=== PATIENT | male | born 1975 | race Caucasian/White ===

== ENCOUNTER 2018-05-27 16:23 | Inpatient (IN) ==
[2018-05-27] MEDS ORDERED: 0.9 % Sodium Chloride 250 ML IVC ONE (16:43)
--- NOTE | 2018-05-27 16:43 | Emergency Department Note ---
Disposition Clinical Impression: End stage renal disease Pneumonia Qualifiers: Pneumonia type: due to unspecified organism Laterality: right Lung location: upper lobe of lung Qualified Code(s): J18.1 - Lobar pneumonia, unspecified organism Sepsis Qualifiers: Sepsis type: sepsis due to unspecified organism Qualified Code(s): A41.9 - Sepsis, unspecified organism Disposition: Admitted As Inpatient Condition: Fair General Adult HPI - General Chief complaint: ED General Medical Stated complaint: High Bp Time Seen by Provider: 05/27/18 16:29 Source: patient, EMS Limitations: no limitations - History of Present Illness Pain Scale: 0 - Related Data Home Medications Medication Instructions Recorded Confirmed Amlodipine Besylate 10 mg PO DAILY 05/28/18 05/28/18 CloNIDine Patch [Catapres-Tts] 0.3 patch TD Q72H 05/28/18 05/28/18 Ergocalciferol (VITAMIN D2) 50,000 unit PO QWEEK 05/28/18 05/28/18 [Vitamin D2] Folic Acid 1 mg PO DAILY 05/28/18 05/28/18 Furosemide [Lasix] 40 mg PO BID PRN 05/28/18 05/28/18 Hydralazine HCl 100 mg PO BID 05/28/18 05/28/18 Lisinopril [Zestril] 40 mg PO BID 05/28/18 05/28/18 Lovastatin [Mevacor] 20 mg PO HS 05/28/18 05/28/18 Phenytoin ER [Dilantin ER] 200 mg PO BID 05/28/18 05/28/18 Allergies Allergy/AdvReac Type Severity Reaction Status Date / Time No Known Allergies Allergy Verified 05/28/18 07:44 Past Medical History - Past Medical History Medical history: Reports: dialysis, hyperlipidemia, hypertension, renal disease Psychiatric history: Reports: no psych history - Social History Smoking Status: Never smoker Smokeless Tobacco Status: No Alcohol use: Reports: none Drug use: Reports: none Physical Exam - General Limitations: no limitations General appearance: alert, in no apparent distress Course Vital Signs Temperature 101.8 F H 05/27/18 16:28 Pulse Rate 145 05/27/18 16:28 Respiratory Rate 20 05/27/18 16:28 Blood Pressure 170/86 05/27/18 16:28 O2 Sat by Pulse Oximetry 96 05/27/18 16:28 Temperature 98.1 F 05/29/18 08:01 Pulse Rate 110 05/29/18 10:00 Respiratory Rate 22 05/29/18 10:00 Blood Pressure 101/69 05/29/18 10:00 O2 Sat by Pulse Oximetry 96 05/29/18 10:00 Oxygen Delivery Oxygen Delivery Nasal Cannula Medical Decision Making - Lab Data Result diagrams: 05/29/18 03:34 05/29/18 03:34 Lab Results 05/27/18 05/27/18 05/27/18 Range/Units 18:43 18:43 18:43 WBC 12.0 H (4.3-11.1) K/mcL RBC 3.89 L (4.19-5.50) M/mcL Hgb 12.7 L (12.9-16.9) g/dL Hct 37.9 (37.5-50.1) % MCV 97.4 (83.0-100.0) fL MCH 32.6 (28.0-33.3) pg MCHC 33.5 (31.6-35.5) g/dL RDW 13.3 (11.5-14.5) % Plt Count 86 L (140-400) K/mcL MPV 9.5 (9.4-12.4) fL Immature Plt Fraction 1.8 (1.1-6.1) % Sodium 132 L (136-145) mEq/L Potassium 3.8 (3.5-5.1) mEq/L Chloride 94 L (98-107) mEq/L Carbon Dioxide 15 L (23-29) mEq/L BUN 75 H (6-20) mg/dL Creatinine 8.61 H (0.70-1.30) mg/dL Est GFR ( Amer) 8 L (> 60) Est GFR (Non-Af Amer) 7 L (> 60) BUN/Creatinine Ratio 9 (6-26) Glucose 64 L (70-105) mg/dL Calculated Osmolality 294 (280-300) Lactic Acid 1.5 (0.5-2.2) mmol/L Calcium 7.9 L (8.6-10.3) mg/dL TSH 3.264 (0.340-5.600) mcIU/mL Attestation Statement - Attestation Attestation: I examined this patient and my medical decision-making was reviewed with the Resident Physician. I agree with the documented findings, disposition and treatment plan as described except to the extent set forth below. History presents with fever, tachycardia, shortness of breath. No orthopnea. Had a normal dialysis session on Monday. Has had a cough for about a week. No recent weight loss. On my arrival, found to be in sinus tachycardia with no appreciable murmur. He is to Take without any abnormal breath sounds on my exam. Thyroid is normal. He has a palpable thrill in his left upper extremity dialysis shunt. His abdomen is nontender, no appreciable rash or findings to suggest cellulitis. It is members are somewhat dry. I am obviously not going to give a large fluid bolus 2 and uric dialysis patient with a normal blood pressure, but I will start with a 250 mL bolus for now.
[2018-05-27] MEDS ORDERED: Cefepime HCl 1,000 MG in Water for inj. (sterile) 20 ML 10 ML IVP ONE (17:07)
--- NOTE | 2018-05-27 17:29 | Emergency Department Note ---
Disposition Clinical Impression: End stage renal disease Pneumonia Qualifiers: Pneumonia type: due to unspecified organism Laterality: right Lung location: upper lobe of lung Qualified Code(s): J18.1 - Lobar pneumonia, unspecified organism Sepsis Qualifiers: Sepsis type: sepsis due to unspecified organism Qualified Code(s): A41.9 - Sepsis, unspecified organism Disposition: Admitted As Inpatient Condition: Fair General Adult HPI - General Chief complaint: ED General Medical Stated complaint: High Bp Time Seen by Provider: 05/27/18 16:29 Source: patient, EMS Mode of arrival: EMS Limitations: no limitations Nursing Notes Reviewed: Yes Vital Signs Reviewed: Yes - History of Present Illness HPI Narrative: 42-year-old male with a history of end-stage renal disease, hypertension since for evaluation of elevated blood pressure. Patient also notes cough and shortness of breath for the past week. Noted a fever today. Denies any abdominal pain. No chest pain nausea or vomiting. Patient presents in the care of family. Patient typically gets dialysis Monday and Monday and follows with Dr. Rae. Patient got his dialysis on Monday. Denies any recent travel or no known ill contacts. Patient does not produce any urine. Pain Scale: 0 - Related Data Allergies Allergy/AdvReac Type Severity Reaction Status Date / Time No Known Allergies Allergy Verified 10/03/16 08:20 All systems ED: reviewed and negative except as stated. Constitutional: Reports: fever Cardiovascular: Denies: chest pain Respiratory: Reports: cough, dyspnea Gastrointestinal: Denies: abdominal pain, nausea, vomiting Past Medical History - Past Medical History Source: patient Medical history: Reports: dialysis, hyperlipidemia, hypertension, renal disease Psychiatric history: Reports: no psych history - Social History Smoking Status: Never smoker Smokeless Tobacco Status: No Alcohol use: Reports: none Drug use: Reports: none Physical Exam - General Limitations: no limitations General appearance: alert, in no apparent distress - Head Head exam: atraumatic, normal inspection - Eye Eye exam: Present: normal appearance, PERRL, EOMI, conjunctival injection. Absent: miosis, mydriasis - ENT ENT exam: normal exam - Neck Neck exam: Present: normal inspection - Chest Chest inspection: Present: normal inspection, symmetric chest wall rise - Respiratory Respiratory exam: Present: other (scattered coarse breath sounds). Absent: respiratory distress - Cardiovascular Cardiovascular exam: Present: normal rhythm, tachycardia. Absent: systolic murmur - Abdominal Exam Abdominal exam: Present: soft, Non-Tender - Expanded Upper Extremity Exam Forearm/Wrist exam: Present: other (Left upper extremity palpable fistula.) Vascular exam: Normal: capillary refill - Expanded Lower Extremity Exam Neurovascular/Tendon exam: Present: normal capillary refill - Neurological Exam Neurological exam: Present: alert, oriented X3, CN II-XII intact - Skin Skin exam: Present: warm, dry, intact, normal color Course Course Narrative: Patient presents with abnormal vitals tachycardia with a temperature. Patient concerns for infection. Will get blood cultures chest x-ray IV fluid gradual titration given his history of end-stage renal disease disposition likely admission. - Consultations Consultation #1: Consulted with Nephrology for scheduled HD. Time: 19:12 Vital Signs Temperature 101.8 F H 05/27/18 16:28 Pulse Rate 145 05/27/18 16:28 Respiratory Rate 20 05/27/18 16:28 Blood Pressure 170/86 05/27/18 16:28 O2 Sat by Pulse Oximetry 96 05/27/18 16:28 Temperature 102.3 F H 05/27/18 20:36 Pulse Rate 138 05/27/18 20:08 Respiratory Rate 18 05/27/18 20:08 Blood Pressure 129/80 05/27/18 20:08 O2 Sat by Pulse Oximetry 100 05/27/18 20:08 Oxygen Delivery Oxygen Delivery Nasal Cannula Medical Decision Making - [facility] Narrative Medical decision making narrative: Patient presented for concerns of cough and shortness of breath. Patient also noted have a fever. Patient is tachycardic and febrile meeting Sirs and likely sepsis criteria. Patient had early antibiotics given. Given the patient's end- stage renal disease the 30 mL/kg fluid bolus was not given and the patient was titrated to effect. Patient did receive 250 mL boluses 2. Patient's heart rate and tachycardia improved during the ED course. Patient was started on broad-spectrum antibiotics including bank, cefepime and azithromycin. Patient's chest x-ray is concerning for a right upper lobe infiltrate. Patient is an uric and cannot produce any urine. Urine Legionella and strep were not ordered in the ED. Discussed the case with nephrology who will follow the patient on the inpatient service for HD. Agreed with titratable fluids. - Lab Data Lab results reviewed: Yes I reviewed the patient's lab results. Result diagrams: 05/27/18 18:43 05/27/18 18:43 Lab Results 05/27/18 05/27/18 05/27/18 Range/Units 18:43 18:43 18:43 WBC 12.0 H (4.3-11.1) K/mcL RBC 3.89 L (4.19-5.50) M/mcL Hgb 12.7 L (12.9-16.9) g/dL Hct 37.9 (37.5-50.1) % MCV 97.4 (83.0-100.0) fL MCH 32.6 (28.0-33.3) pg MCHC 33.5 (31.6-35.5) g/dL RDW 13.3 (11.5-14.5) % Plt Count 86 L (140-400) K/mcL MPV 9.5 (9.4-12.4) fL Immature Plt Fraction 1.8 (1.1-6.1) % Sodium 132 L (136-145) mEq/L Potassium 3.8 (3.5-5.1) mEq/L Chloride 94 L (98-107) mEq/L Carbon Dioxide 15 L (23-29) mEq/L BUN 75 H (6-20) mg/dL Creatinine 8.61 H (0.70-1.30) mg/dL Est GFR ( Amer) 8 L (> 60) Est GFR (Non-Af Amer) 7 L (> 60) BUN/Creatinine Ratio 9 (6-26) Glucose 64 L (70-105) mg/dL Calculated Osmolality 294 (280-300) Lactic Acid 1.5 (0.5-2.2) mmol/L Calcium 7.9 L (8.6-10.3) mg/dL - Radiology Data Radiology results reviewed: Yes I reviewed the patient's radiology results. Chest X-Ray 05/27/18 16:40 IMPRESSION: Right upper lobe pneumonia. D/ / 05/27/2018 17:58:12 Leeann Silva MD / linda Interpreting Provider: Leeann Silva MD S.B.ASoniaRSonia - S.Jose Ramon Situation: Demographics Background: Presenting Complaint Assessment: Vital Signs, Course and respsone to treatment, Patient/Family Expectation Recommendation: Barrier(s) to disposition, Recommendation based on pending studies, treatments, or consults Amaury Report Given to: Dr. Shelby Rebolledo Repor Time: 19:18
[2018-05-27] MEDS ORDERED: Azithromycin 500 MG in D5% in Water 250 ML IVPB ONE (18:16)
[2018-05-27 19:01] LABS: Hematocrit 37.9 % (37.5-50.1); Hemoglobin 12.7 g/dL (12.9-16.9); Immature Platelets 1.8 % (1.1-6.1); Mean Corpuscular HGB Conc 33.5 g/dL (31.6-35.5); Mean Corpuscular Hemoglobin 32.6 pg (28.0-33.3); Mean Corpuscular Volume 97.4 fL (83.0-100.0); Mean Platelet Volume 9.5 fL (9.4-12.4); Red Blood Count 3.89 M/mcL (4.19-5.50); Red Cell Distribution Width 13.3 % (11.5-14.5)
[2018-05-27 19:19] LABS: Calcium 7.9 mg/dL (8.6-10.3); Potassium 3.8 mEq/L (3.5-5.1)
[2018-05-27] MEDS ORDERED: Naloxone 0.4 MG/ML INJ IVP PRN (19:37)
[2018-05-27] MEDS ORDERED: 0.9 % Sodium Chloride 1,000 ML IVC SCH (19:45)
--- NOTE | 2018-05-27 19:45 | Internal Med History&Physical ---
Date of Encounter: 05/27/18 Time of Encounter: 19:44 Internal Medicine - H&P: HPI Chief complaint: Cough History of present illness: Mr. Herrera is a 42 year old male Past Med Surg Social Fam HX - Past Medical History Medical history: dialysis, hyperlipidemia, hypertension, renal disease Psychiatric history: no psych history - Past Surgical History Additional surgical history: kidney transplant-1994. dialysis [facility] [place] - Social History Smoking Status: Never smoker Smokeless Tobacco Status: No Alcohol use: none Drug use: none Internal Medicine - H&P: Meds Allergy/AdvReac Type Severity Reaction Status Date / Time No Known Allergies Allergy Verified 10/03/16 08:20 All Systems PM: A 10-system review of systems was performed and is negative for pertinent findings except as documented above in the HPI. - Constitutional Constitutional: no chills, no fever(s), no night sweats - EENT Eyes: no change in vision, no discharge, no pain, no photophobia Ears: no ear discharge, no ear pain, no tinnitus Nose, mouth and throat: no dysphagia, no nasal discharge, no neck pain, no sore throat - Cardiovascular Cardiovascular ROS IM: no chest pain, no diaphoresis, no dyspnea, no light headedness, no palpitations, no syncope - Respiratory Respiratory: no cough, no dyspnea, no wheezing, no excessive phlegm production - Gastrointestinal Gastrointestinal: no abdominal pain, no diarrhea, no hematemesis, no h ematochezia, no melena, no nausea, no vomiting - Musculoskeletal Musculoskeletal ROS IM: no numbness, no tingling - Integumentary Integumentary IM: no rash, no unusual bruising - Neurological Neurological ROS: no confusion, no convulsions, no focal weakness, no numbness, no tingling, no tremor(s) - Hematologic/Lymphatic Hematologic/Lymphatic: no easy bruising - Constitutional Vitals: Temp Pulse Resp BP Pulse Ox 101.8 F H 146 22 149/83 95 05/27/18 16:28 05/27/18 17:36 05/27/18 17:36 05/27/18 17:36 05/27/18 17:36 Internal Med - H&P Results - Labs CBC & Chem 7: 05/27/18 18:43 05/27/18 18:43 Labs: Short CBC 11/11/18 Range/Units 18:43 WBC 12.0 H (4.3-11.1) K/mcL Hgb 12.7 L (12.9-16.9) g/dL Hct 37.9 (37.5-50.1) % Plt Count 86 L (140-400) K/mcL [facility] 05/27/18 18:43 Sodium 132 L Potassium 3.8 Chloride 94 L Carbon Dioxide 15 L BUN 75 H Creatinine 8.61 H Glucose 64 L Calcium 7.9 L - Impressions ITS Impressions Chest X-Ray 05/27/18 16:40 IMPRESSION: Right upper lobe pneumonia. D/ / 05/27/2018 17:58:12 Leeann Silva MD / linda Interpreting Provider: Leeann Silva MD - Assessment and plan (1) Cough Current Visit: Yes Status: Acute (2) HCAP (healthcare-associated pneumonia) Current Visit: Yes Status: Acute (3) End stage renal disease Current Visit: Yes Status: Acute - Time Spent With Patient Total time spent is greater than 50% in coordination of care (as documented) at patient's floor/unit and/or counseling patient:
[2018-05-27] MEDS ORDERED: Ondansetron 4 MG/2 ML VIAL IVP ONE (19:49)
[2018-05-27] MEDS ORDERED: Ondansetron 4 MG/2 ML VIAL ONE (19:59)
[2018-05-27] MEDS: 0.9 % Sodium Chloride 250 ML IVC ONE ×2 (20:11→20:22)
[2018-05-27] MEDS ORDERED: Ibuprofen 800 MG TABLET PO STA (20:38)
[2018-05-27 21:21] LABS: Thyroid Stimulating Hormone 3.264 mcIU/mL (0.340-5.600)
[2018-05-28] MEDS: Acetaminophen 325 MG TABLET PO PRN ×2 (00:17→05:59)
[2018-05-28] MEDS: Ondansetron 4 MG/2 ML VIAL IVP PRN ×2 (00:18→06:00)
--- NOTE | 2018-05-28 01:54 | Internal Med History&Physical ---
Date of Encounter: 05/28/18 Time of Encounter: 23:00 Internal Medicine - H&P: HPI Chief complaint: cough History of present illness: Patient was seen and examined on 05/27/2018 Mr. Herrera is a 42 year old male with a past medical history of end-stage renal disease on hemodialysis and hypertension who presented to the ED due to a 1 week history of productive cough and shortness of breath. Patient reports symptoms of an ongoing for the past week. He noted a subjective fever earlier today. Reports productive cough. On arrival was found to be in sinus tachycardia with a heart rate in the 140s with an elevated white blood cell count of 12. Given the patient's end-stage renal disease the 30 mL/kg fluid bolus was not given. He did receive 250 mL boluses 2. Patient's heart rate and tachycardia improved during the ED course. Patient was started on broad-spectrum antibiotics including bank, cefepime and azithromycin. Patient's chest x-ray is concerning for a right upper lobe infiltrate. A CT scan was followed up to further evaluate x-ray findings which did confirm a right upper lobe consolidation concerning for pneumonia. Patient is anuric and thus cannot produce any urine. Urine Legionella and strep were not ordered in the ED. ED provider discussed case with nephrology who will follow the patient on the inpatient service for HD. Past Med Surg Social Fam HX - Past Medical History Medical history: dialysis, hyperlipidemia, hypertension, renal disease Psychiatric history: no psych history - Past Surgical History Additional surgical history: kidney transplant-1994. dialysis port [facility] - Social History Smoking Status: Never smoker Smokeless Tobacco Status: No Alcohol use: none Drug use: none - Family History Mother History Unknown: Yes Father History Unknown: Yes Internal Medicine - H&P: Meds Allergy/AdvReac Type Severity Reaction Status Date / Time No Known Allergies Allergy Verified 10/03/16 08:20 All Systems PM: A 10-system review of systems was performed and is negative for pertinent findings except as documented above in the HPI. - Constitutional Constitutional: no chills, no fever(s), no night sweats - EENT Eyes: no change in vision, no discharge, no pain, no photophobia Ears: no ear discharge, no ear pain, no tinnitus Nose, mouth and throat: no dysphagia, no nasal discharge, no neck pain, no sore throat - Cardiovascular Cardiovascular ROS IM: no chest pain, no diaphoresis, no dyspnea, no lightheadedness, no palpitations, no syncope - Respiratory Respiratory: no cough, no dyspnea, no wheezing, no excessive phlegm production - Gastrointestinal Gastrointestinal: no abdominal pain, no diarrhea, no hematemesis, no hematochezia, no melena, no nausea, no vomiting - Musculoskeletal Musculoskeletal ROS IM: no numbness, no tingling - Integumentary Integumentary IM: no rash, no unusual bruising - Neurological Neurological ROS: no confusion, no convulsions, no focal weakness, no numbness, no tingling, no tremor(s) - Hematologic/Lymphatic Hematologic/Lymphatic: no easy bruising - Constitutional Vitals: Temp Pulse Resp BP Pulse Ox 98.3 F 123 18 102/62 97 05/27/18 23:37 05/27/18 23:37 05/27/18 23:37 05/27/18 23:37 05/27/18 21:52 Exam: General: Alert and oriented 3; lying in bed in no acute distress Skin:Normal color, no rash, no lesions. HEENT:EOM, pupils equal, round and reactive. Cardiovascular:Normal S1 & S2, tachycardia; no rubs, murmurs or gallops. No JVD. Pulse regular. Lungs: Diffuse rhonchi appreciated in the right posterior thorax. Abdomen:Soft, non-tender, no rigidity. Extremities:No deformity, no edema or tenderness, no joint swelling or clubbing. Neurological:Normal cognition and motor skills. Pulses:Carotid and radial pulses normal +2. Rest of the physical exam is non contributory Internal Med - H&P Results - Labs CBC & Chem 7: 05/28/18 04:38 05/28/18 04:38 Labs: Short CBC 05/27/18 Range/Units 18:43 WBC 12.0 H (4.3-11.1) K/mcL Hgb 12.7 L (12.9-16.9) g/dL Hct 37.9 (37.5-50.1) % Plt Count 86 L (140-400) K/mcL BMP 05/27/18 18:43 Sodium 132 L Potassium 3.8 Chloride 94 L Carbon Dioxide 15 L BUN 75 H Creatinine 8.61 H Glucose 64 L Calcium 7.9 L - Impressions ITS Impressions Chest X-Ray 05/27/18 16:40 IMPRESSION: Right upper lobe pneumonia. D/ / 05/27/2018 17:58:12 Leeann Silva MD / linda Interpreting Provider: Leeann Silva MD Chest CT 05/27/18 19:39 IMPRESSION: Right upper lobe consolidation concerning for pneumonia. Additional airspace disease is noted in the posterior aspect of the right lower lobe to a lesser degree. A small pleural effusion on the right is also noted. D/ / Bam Alfaro / Bam Alfaro Interpreting Provider: Bam Alfaro - Assessment and plan (1) Cough Current Visit: Yes Status: Acute Assessment and plan: 1 week history of productive cough associated with fever and shortness of saurav ath. Found to have a elevated white blood cell count and right lower lobe consolidation on imaging consistent with pneumonia. We will treat for healthcare associated pneumonia. (2) HCAP (healthcare-associated pneumonia) Current Visit: Yes Status: Acute Assessment and plan: Fever, cough, leukocytosis and findings of a Right upper lobe consolidation in a patient with end-stage renal disease on hemodialysis. Patient started on broad- spectrum antibiotics for coverage for healthcare associated pneumonia. We will follow-up blood cultures. (3) Sepsis Current Visit: Yes Status: Acute Assessment and plan: Patient presents with fever, elevated white blood cell count and tachycardia in the 140s in the setting of right upper lobe consolidation consistent with sepsis. Remains hemodynamically stable. Lactic acid on admission was 1.5. Given the patient's end-stage renal disease the 30 mL/kg fluid bolus was not given. He did receive 250 mL boluses 2. Heart rate has mildly improved now in the 120s. Continue with antibiotics fluid support Follow-up blood cultures. Qualifiers: Sepsis type: sepsis due to unspecified organism Qualified Code(s): A41.9 - Sepsis, unspecified organism (4) End stage renal disease Current Visit: Yes Status: Acute Assessment and plan: End-stage renal disease on dialysis Monday. Nephrology has been consulted and will see patient tomorrow to aid in dialysis session. - Time Spent With Patient Total time spent is greater than 50% in coordination of care (as documented) at patient's floor/unit and/or counseling patient:
[2018-05-28 05:05] LABS: Hemoglobin 11.6 g/dL (12.9-16.9); Red Cell Distribution Width 13.5 % (11.5-14.5)
[2018-05-28 05:07] LABS: Hematocrit 34.9 % (37.5-50.1); Immature Platelets 2.6 % (1.1-6.1); Mean Corpuscular HGB Conc 33.2 g/dL (31.6-35.5); Mean Corpuscular Hemoglobin 32.6 pg (28.0-33.3); Mean Platelet Volume 9.6 fL (9.4-12.4); Red Blood Count 3.56 M/mcL (4.19-5.50)
[2018-05-28 05:13] LABS: INR 1.7; Prothrombin Time 18.9 Seconds (9.4-12.1)
[2018-05-28 05:15] LABS: Activated Partial Thrombo Time 44.6 Seconds (26.0-36.0)
[2018-05-28 05:20] LABS: Platelet Count 79 K/mcL (140-400)
[2018-05-28 05:35] LABS: Albumin 3.4 g/dL (3.5-5.7); Albumin/Globulin Ratio 1.2 (1.1-2.2); Bilirubin,Total 0.6 mg/dL (0.3-1.0); Calcium 7.4 mg/dL (8.6-10.3); Globulin 2.8 g/dL (2.4-3.5); Magnesium 1.8 mg/dL (1.6-2.6); Phosphorous 2.5 mg/dL (2.7-4.5); Potassium 3.8 mEq/L (3.5-5.1); Total Protein 6.2 g/dL (6.4-8.9)
[2018-05-28] MEDS ORDERED: Dextrose Gel 15 GM/37.5 ML TUBE PO PRN (05:37)
[2018-05-28] MEDS ORDERED: D5% in Water 1,000 ML IVC PRN ×2 (05:37→06:56)
[2018-05-28] MEDS: *HR* Dextrose 50 % in Water (Syg) 50 ML SYRINGE IVP PRN ×3 (05:48→22:09)
[2018-05-28 05:53] LABS: Eosinophils # 0.2 K/mcL (0.0-0.6); Lymphocytes # 1.1 K/mcL (0.6-4.6); Monocytes # 0.9 K/mcL (0.0-1.3); Neutrophils # 8.1 K/mcL (1.6-8.9)
[2018-05-28] MEDS: Dextrose Gel 15 GM/37.5 ML TUBE PO PRN ×2 (06:12→10:00)
[2018-05-28] MEDS: Piperacillin/Tazobactam 3.375 GM in 0.9 % Sodium Chloride Mini Bag 100 ML IVPB SCH ×2 (06:12→17:49)
[2018-05-28] MEDS ORDERED: 0.9 % Sodium Chloride 250 ML IVC PRN (07:57)
[2018-05-28] MEDS ORDERED: 0.9 % Sodium Chloride 1,000 ML PRIME SCH (08:00)
[2018-05-28 08:12] LABS: Hepatitis B Surface Antigen Nonreactive (Nonreactive)
[2018-05-28 08:21] LABS: Hepatitis B Surface Antibody 13.16 mIU/mL
--- NOTE | 2018-05-28 09:01 | Nephrology Consult Note ---
Addendum entered and electronically signed by Alf Floyd DO 05/28/18 20:39: I have personally performed a face to face evaluation on this patient. I have reviewed and agree with the care plan. History and Exam by me shows: 42 y/o WM with a pmh of small body habitus and ESRD on HD MWF (follows with Dr. Rae) who presented with fevers and PNA and hypoglycemia. His last HD was Monday, and I've arranged for dialysis today. I reviewed his labs, vitals, imaging, progress notes, med list as part of his complex MDM and E/M. Dialysis note: he was also seen while on HD with adequate BFR. He appeared hemodynamically stable but later he developed N/V. Original Note: Date of Encounter: 05/28/18 Time of Encounter: 08:54 Assessment and Plan (1) ESRD (end stage renal disease) on dialysis Current Visit: Yes Status: Acute Current regimen is MWF at [facility]. Last tx was Monday. HD ordered for today. Strict I/O Avoid nephrotoxins and renal dose. (2) Hypoglycemia Current Visit: Yes Status: Acute (3) Cough Current Visit: Yes Status: Acute (4) Pneumonia Current Visit: Yes Status: Acute Qualifiers: Pneumonia type: due to unspecified organism Laterality: right Lung location: upper lobe of lung Qualified Code(s): J18.1 - Lobar pneumonia, unspecified organism (5) Hypoglycemia Current Visit: Yes Status: Acute Blood glucose on serum lab was 38, 25 mls of dextrose given. Target glucose 140-180. History of Present Illness - Reason for Consult Consult date: 05/28/18 end stage renal disease Requesting physician: Louis Ryan - Chief Complaint HTN - History of Present Illness Mr. Herrera is a 42 year old male who presented to ED with elevated BP, shortness of breath, and overall not feeling well. PMH: hyperlipidemia, hypertension, ESRD. Current regimen is MWF at [facility]. Last tx was Monday without complication. He states the shortness of breath started about 7 days ago, denies chills but does admit to a subjective fever, he did not check it at home. He denies sputum production or chest pain. He lives at home with his sister. Denies tobacco, Etoh, or illicit drug use. Denies FH of HD. HD ordered for today, will continue to follow along to manage hemodialylsis. He typically runs 180 mins and target weight is 42.5 kg. Past Med Surg Social Fam HX - Past Medical History Medical history: dialysis, hyperlipidemia, hypertension, renal disease Psychiatric history: no psych history - Past Surgical History Additional surgical history: kidney transplant-1994. dialysis [facility] [place] - Social History Smoking Status: Never smoker Smokeless Tobacco Status: No Alcohol use: none Drug use: none - Family History Mother History Unknown: Yes Father History Unknown: Yes Medications and Allergies Amlodipine Besylate 10 mg PO DAILY 05/28/18 [History] CloNIDine Patch [Catapres-Tts] 0.3 patch TD Q72H 05/28/18 [History] Ergocalciferol (VITAMIN D2) [Vitamin D2] 50,000 unit PO QWEEK 05/28/18 [History] Folic Acid 1 mg PO DAILY 05/28/18 [History] Furosemide [Lasix] 40 mg PO BID PRN 05/28/18 [History] Hydralazine HCl 100 mg PO BID 05/28/18 [History] Lisinopril [Zestril] 40 mg PO BID 05/28/18 [History] Lovastatin [Mevacor] 20 mg PO HS 05/28/18 [History] Phenytoin ER [Dilantin ER] 200 mg PO BID 05/28/18 [History] Allergy/AdvReac Type Severity Reaction Status Date / Time No Known Allergies Allergy Verified 05/28/18 07:44 Review of Systems All Systems review (narrative): The remainder of the systems are negative. Constitutional: fatigue, fever(s), no chills Cardiovascular: dyspnea, dyspnea on exertion, no chest pain, no edema Respiratory: no hemoptysis Gastrointestinal: no change in bowel habits, no diarrhea, no nausea, no vomiting Exam - Vital Signs Vital signs: Initial Vital Signs Temp Pulse Resp BP Pulse Ox 101.8 F H 145 20 170/86 96 05/27/18 16:28 05/27/18 16:28 05/27/18 16:28 05/27/18 16:28 05/27/18 16:28 Vital Signs - Last 8 Hours Temp Pulse Resp BP Pulse Ox 05/28/18 06:55 97.9 F 117 18 98/57 98 05/28/18 04:04 98.2 F 114 16 100/58 98 Intake and Output 05/27/18 05/28/18 05/28/18 23:59 07:59 15:59 Other: Stool Size Moderate Stool Consistency soft Stool Color Brown # Bowel Movements 1 # Bowel Movement Diapers 1 Weight 45.359 kg 44.4 kg Blood Glucose* 113 93 Patient Weight 05/28/18 23:59 Weight 44.4 kg - General Appearance General appearance: well-developed, well-nourished EENT: ATNC, hearing intact, vision intact Neck: supple Respiratory: clear Cardiology: no edema, normal S1, normal S2 - Dialysis Access Dialysis Vascular Access: Arteriovenous Fistula thrill: Yes bruit: Yes Gastrointestinal: normoactive bowel sounds, no tenderness, no guarding Integumentary: no rash, warm and dry Neurologic: alert and oriented x3 Psychiatric: mood/affect appropriate, cooperative Results - Lab Results 05/28/18 04:38 05/28/18 04:38 Most recent lab results Calcium 7.4 mg/dL (8.6-10.3) L 05/28/18 04:38 Phosphorus 2.5 mg/dL (2.7-4.5) L 05/28/18 04:38 Magnesium 1.8 mg/dL (1.6-2.6) 05/28/18 04:38 Consult Discharge Plan - Plan Referrals: Lupe Mcdonnell, SUEDING MACHINE TENDER [Primary Care Provider] -
[2018-05-28] MEDS ORDERED: *HR* OxyCODONE Immed Rel 5 MG TABLET PO PRN (09:55)
[2018-05-28] MEDS: *HR* Promethazine 25 MG/ML VIAL IVP PRN ×2 (11:10→16:40)
--- NOTE | 2018-05-28 16:30 | Internal Med Progress Note ---
Hospitalist Progress Note - Encounter Date of Encounter: 05/28/18 Time of Encounter: 16:29 - Subjective Interval History: Pt vomiting during HD so waited for him to be cleaned up and to return to his room. Sister at bedside states pt appears confused. Sister states last time he had similar symptoms, he was "in a coma for 10 days." Pt denies fever or chills, positive nausea. Denies abdominal pain. Denies CP or SOB HE was alert and oriented times 2-3. - Exam Vitals: Temp Pulse Resp BP Pulse Ox 100.5 F H 130 20 92/61 98 05/28/18 15:00 05/28/18 15:00 05/28/18 15:00 05/28/18 15:00 05/28/18 15:00 Exam: Exam: General: Alert and oriented 3; lying in bed in no acute distress HEENT:EOM, pupils equal, round and reactive. Cardiovascular:Normal S1 & S2, tachycardia; no rubs, murmurs or gallops. No JVD. Pulse regular. Lungs: Diffuse rhonchi appreciated in the right posterior thorax. Abdomen:Soft, non-tender, no rigidity. Extremities:No deformity, no edema or tenderness, no joint swelling or clubbing. Neurological:Normal cognition and motor skills. Pulses:Carotid and radial pulses normal +2. Skin:Normal color, no rash, no lesions. - Assessment and Plan (1) Sepsis Current Visit: Yes Status: Acute Assessment and Plan: Patient presents with fever, elevated white blood cell count and tachycardia in the 140s in the setting of right upper lobe consolidation consistent with sepsis. Remains hemodynamically stable. Lactic acid on admission was 1.5. Given the patient's end-stage renal disease the 30 mL/kg fluid bolus was not given. He did receive 250 mL boluses 2 and about another liter of NS. Heart rate still elevated. Will obtain EKG 12 lead. Continue with Zithromax, Zosyn, and Vancomycin fluid support per nephrology recommendation. Following-up blood cultures, legionella, strep, and rep panel results. Pt will be transfered to 2N or ICU over flow for close monitoring. (2) HCAP (healthcare-associated pneumonia) Current Visit: Yes Status: Acute Assessment and Plan: Fever, cough, leukocytosis and findings of a Right upper lobe consolidation in a patient with end-stage renal disease on hemodialysis. Patient started on broad-spectrum antibiotics for coverage for healthcare associated pneumonia. Blood culture, Legionella, strep urine and resp panel results pending (3) End stage renal disease Current Visit: Yes Status: Acute Assessment and Plan: End-stage renal disease on dialysis Monday. Nephrology consulting and pt is s/p HD today (4) Hypoglycemia Current Visit: Yes Status: Acute Assessment and Plan: Etiology unclear. Monitoring glucose Q 30 minutes and replacing with prn dextrose and glucagon for now. (5) Encephalopathy acute Current Visit: Yes Status: Acute Assessment and Plan: ? metabolic encephalopathy. Likely due to acute illness. Will continue to monitor closely on higher acuity floor. (6) Cough Current Visit: Yes Status: Acute Assessment and Plan: 1 week history of productive cough associated with fever and shortness of breath. Found to have a elevated white blood cell count and right lower lobe consolidation on imaging consistent with pneumonia. Treating for healthcare associated pneumonia. DVT Prophylaxis: SCD - Summary of Assessment and Plan Summary of Assessment and Plan: History of present illness: Dr. Ryan Patient was seen and examined on 05/27/2018 Mr. Herrera is a 42 year old male with a past medical history of end-stage renal disease on hemodialysis and hypertension who presented to the ED due to a 1 week history of productive cough and shortness of breath. Patient reports symptoms of an ongoing for the past week. He noted a subjective fever earlier today. Reports productive cough. On arrival was found to be in sinus tachycardia with a heart rate in the 140s with an elevated white blood cell count of 12. Given the patient's end-stage renal disease the 30 mL/kg fluid bolus was not given. He did receive 250 mL boluses 2. Patient's heart rate and tachycardia improved during the ED course. Patient was started on broad-spectrum antibiotics including bank, cefepime and azithromycin. Patient's chest x-ray is concerning for a right upper lobe infiltrate. A CT scan was followed up to further evaluate x-ray findings which did confirm a right upper lobe consolidation concerning for pneumonia. Patient is anuric and thus cannot produce any urine. Urine Legionella and strep were not ordered in the ED. ED provider discussed case with nephrology who will follow the patient on the inpatient service for HD. - Time Spent with Patient Total time spent is greater than 50% in coordination of care (as documented) at patient's floor/unit and/or counseling patient: less than 15 minutes Plan of Care Discussed with: patient Internal Medicine: Result - Labs CBC & Chem 7: 05/28/18 04:38 05/28/18 04:38 Labs: Short CBC 05/27/18 05/28/18 Range/Units 18:43 04:38 WBC 12.0 H 11.0 (4.3-11.1) K/mcL Hgb 12.7 L 11.6 L (12.9-16.9) g/dL Hct 37.9 34.9 L (37.5-50.1) % Plt Count 86 L 79 L (140-400) K/mcL Neutrophils # 8.1 (1.6-8.9) K/mcL BMP 05/27/18 05/28/18 18:43 04:38 Sodium 132 L 133 L Potassium 3.8 3.8 Chloride 94 L 97 L Carbon Dioxide 15 L 16 L BUN 75 H 77 H Creatinine 8.61 H 8.73 H Glucose 64 L 38 L* Calcium 7.9 L 7.4 L Liver Function 05/28/18 Range/Units 04:38 Total Bilirubin 0.6 (0.3-1.0) mg/dL AST 46 H (13-39) Units/L ALT 24 (7-52) Units/L Alkaline Phosphatase 150 H (34-104) Units/L Albumin 3.4 L (3.5-5.7) g/dL - ABG Interpretation ABG results: PT/INR, D-dimer PT 18.9 Seconds (9.4-12.1) H 05/28/18 04:38 - Impressions Impressions Chest X-Ray 05/27/18 16:40 IMPRESSION: Right upper lobe pneumonia. D/ / 05/27/2018 17:58:12 Leeann Silva MD / linda Interpreting Provider: Leeann Silva MD Chest CT 05/27/18 19:39 IMPRESSION: Right upper lobe consolidation concerning for pneumonia. Additional airspace disease is noted in the posterior aspect of the right lower lobe to a lesser degree. A small pleural effusion on the right is also noted. D/ / Bam Alfaro / Bam Alfaro Interpreting Provider: Bam Alfaro Consult Discharge Plan - Plan Referrals: Lupe Mcdonnell, CONSTRUCTION ANALYST [Primary Care Provider] - (1) Sepsis Qualifiers: Sepsis type: sepsis due to unspecified organism Qualified Code(s): A41.9 - Sepsis, unspecified organism
[2018-05-28] MEDS ORDERED: Azithromycin 500 MG in D5% in Water 250 ML IVPB SCH (18:00)
[2018-05-28 18:03] LABS: ABG Base Excess 8 mEq/L (-2 to 3); ABG HCO3 31 mEq/L (21-27); ABG Oxygen Saturation 98 % (95-98); ABG PCO2 37 mmHg (35-45); ABG PH 7.53 pH Units (7.32-7.45); ABG PO2 97 mmHg (85-104); ABG TCO2 32 mEq/L (20-26)
[2018-05-28] MEDS ORDERED: *HR* LORazepam 2 MG/ML VIAL IVP ONE (20:22)
[2018-05-28 23:18] LABS: Adenovirus F 40/41 PCR Not detected (Not detect); Astrovirus PCR Not detected (Not detect); C.difficile Toxin A/B by PCR Not detected (Not detect); Campylobacter by PCR Not detected (Not detect); Cryptosporidium by PCR Not detected (Not detect); Cyclospora cayetanensis PCR Not detected (Not detect); E. coli O157 by PCR Not detected (Not detect); Entamoeba histolytica PCR Not detected (Not detect); Enteroaggregative E.coli(EAEC) Not detected (Not detect); Enteropathogenic E.coli(EPEC) Not detected (Not detect); Enterotoxigenic E.coli (ETEC) Not detected (Not detect); Giardia lamblia PCR Not detected (Not detect); Norovirus GI/GII PCR Not detected (Not detect); Plesiomonas shigelloides PCR Not detected (Not detect); Rotavirus A PCR Not detected (Not detect); Salmonella PCR Not detected (Not detect); Sapovirus PCR Not detected (Not detect); Shig/EnteroinvasiveE coli EIEC Not detected (Not detect); Shigalike tox-prod E coli STEC Not detected (Not detect); Vibrio PCR Not detected (Not detect); Vibrio cholerae PCR Not detected (Not detect); Yersinia enterocolitica PCR Not detected (Not detect)
[2018-05-29] MEDS: *HR* Dextrose 50 % in Water (Syg) 50 ML SYRINGE IVP PRN (02:21)
[2018-05-29 03:54] LABS: Mean Corpuscular HGB Conc 33.5 g/dL (31.6-35.5)
[2018-05-29 03:56] LABS: Hematocrit 38.2 % (37.5-50.1); Hemoglobin 12.8 g/dL (12.9-16.9); Immature Platelets 3.3 % (1.1-6.1); Mean Corpuscular Hemoglobin 32.7 pg (28.0-33.3); Mean Corpuscular Volume 97.7 fL (83.0-100.0); Mean Platelet Volume 10.1 fL (9.4-12.4); Red Blood Count 3.91 M/mcL (4.19-5.50); Red Cell Distribution Width 13.7 % (11.5-14.5)
[2018-05-29 04:08] LABS: Platelet Count 81 K/mcL (140-400)
[2018-05-29 04:12] LABS: Calcium 7.6 mg/dL (8.6-10.3); Potassium 3.5 mEq/L (3.5-5.1)
[2018-05-29 04:28] LABS: Lymphocytes # 0.5 K/mcL (0.6-4.6); Neutrophils # 22.8 K/mcL (1.6-8.9); Platelet Estimate Decreased (Normal)
[2018-05-29] MEDS: Piperacillin/Tazobactam 3.375 GM in 0.9 % Sodium Chloride Mini Bag 100 ML IVPB SCH ×2 (04:55→17:51)
[2018-05-29 04:56] LABS: Adenovirus Not Detected (Not Detect); Bordetella Pertussis Not Detected (Not Detect); Chlamydophila pneumoniae Not Detected (Not Detect); Coronavirus 229E Not Detected (Not Detect); Coronavirus HKU1 Not Detected (Not Detect); Coronavirus NL63 Not Detected (Not Detect); Coronavirus OC43 Not Detected (Not Detect); Human Metapneumovirus Not Detected (Not Detect); Human Rhinovirus/Enterovirus DETECTED (Not Detect); Influenza A Subtype 2009 H1 Not Detected (Not Detect); Influenza A Untypeable Not Detected (Not Detect); Influenza B Not Detected (Not Detect); Mycoplasma pneumoniae Not Detected (Not Detect); Parainfluenza Virus 1 Not Detected (Not Detect); Parainfluenza Virus 2 Not Detected (Not Detect); Parainfluenza Virus 3 Not Detected (Not Detect); Parainfluenza Virus 4 Not Detected (Not Detect); Respiratory Syncytial Virus Not Detected (Not Detect)
[2018-05-29] MEDS ORDERED: *HR* Dextrose 50 % in Water (Syg) 50 ML SYRINGE IVP ONE (05:02)
[2018-05-29] MEDS: *HR* Promethazine 25 MG/ML VIAL IVP PRN (08:10)
[2018-05-29] MEDS ORDERED: Azithromycin 250 MG TABLET PO SCH (09:00)
--- NOTE | 2018-05-29 09:37 | Nephrology Progress Note ---
Addendum entered and electronically signed by Alf Floyd DO 05/29/18 19:39: I have personally performed a face to face evaluation on this patient. I have reviewed and agree with the care plan. History and Exam by me shows: Pt was s/e earlier today at about noon and I updated his brother and sister in law. Next HD planned for tomorrow. Reasonable to add a concentrated Dextrose IVF if needed. Updated VEHICLE TECHNICIAN. Thank you. Original Note: Date of Encounter: 05/29/18 Time of Encounter: 09:34 - Assessment and Plan (1) ESRD (end stage renal disease) on dialysis Current Visit: Yes Status: Acute Current regimen is MWF at [facility]. HD completed yesterday. Strict I/O Avoid nephrotoxins and renal dose. (2) Cough Current Visit: Yes Status: Acute Per primary. (3) Pneumonia Current Visit: Yes Status: Acute Per primary. Qualifiers: Pneumonia type: due to unspecified organism Laterality: right Lung location: upper lobe of lung Qualified Code(s): J18.1 - Lobar pneumonia, unspecified organism (4) Hypoglycemia Current Visit: Yes Status: Acute Appears resolved. Target glucose 140-180. Subjective Principal diagnosis: elevated BP Interval history: Pt seen and evaluated, is doing well. Did have large amount of green emesis this morning. Reports he is feeling "okay". Denies CP or shortness of breath. Objective - Vital Signs Vital signs: Vital Signs Temp Pulse Resp BP Pulse Ox 05/29/18 09:00 115 22 100/61 96 05/29/18 08:01 98.1 F 05/29/18 08:00 115 24 120/94 96 05/29/18 07:00 98.1 F 118 20 113/75 96 05/29/18 06:00 115 21 103/63 96 05/29/18 05:00 120 23 113/76 98 05/29/18 04:10 98.2 F 05/29/18 04:00 116 20 114/69 95 05/29/18 03:00 120 23 104/73 95 05/29/18 02:00 120 24 110/60 96 05/29/18 01:00 123 18 96/63 98 05/29/18 00:00 98.7 F 122 23 101/64 97 05/28/18 23:30 100.7 F H 05/28/18 23:00 125 23 89/62 98 05/28/18 22:00 124 21 104/58 99 05/28/18 21:00 126 25 109/63 98 05/28/18 20:13 98.6 F 05/28/18 20:00 125 21 95/49 98 05/28/18 19:00 126 22 102/62 100 05/28/18 18:00 98.4 F 131 20 101/66 98 05/28/18 17:00 134 20 93/68 98 05/28/18 16:00 138 20 104/71 98 05/28/18 15:00 100.5 F H 130 20 92/61 98 05/28/18 12:25 98.9 F 20 95/62 05/28/18 12:05 91/62 05/28/18 11:50 108/70 05/28/18 11:35 89/62 05/28/18 11:20 109/55 05/28/18 11:05 106/74 05/28/18 10:50 98/69 05/28/18 10:35 111/75 05/28/18 10:20 99/59 05/28/18 10:05 101/62 05/28/18 09:50 93/59 05/28/18 09:35 99/63 Intake and Output 05/28/18 05/29/18 05/29/18 23:59 07:59 15:59 Intake Total 350 / 350 0 / 0 100 / 100 Balance 350 / 350 0 / 0 100 / 100 Intake: IV Fluids 350 / 350 100 / 100 Zithromax 500 mg In Dextrose 5% 250 / 250 250 ML @ 250 mls/hr IVPB Q24H [facility] Rx#:[id number] Zosyn 3.375 GM In 0.9 % Sodium 100 / 100 100 / 100 Chloride (Mini-Bag +) 100 ML @ 25 mls/hr IVPB Q12HR [facility] Rx#: [id number] Oral 0 / 0 0 / 0 Other: Stool Size Small Moderate Stool Consistency liquid loose liquid Stool Characteristics Mucoid Mucoid Stool Color Green Green # Bowel Movements 1 Weight 44.2 kg Blood Glucose* 94 106 106 - General Appearance General appearance: Present: well-developed, well-nourished EENT: Present: ATNC, hearing intact, vision intact Neck: Present: supple Respiratory: Present: clear Cardiology: Present: no edema, normal S1, normal S2 Dialysis Vascular Access: Arteriovenous Fistula thrill: Yes bruit: Yes Gastrointestinal: Present: normoactive bowel sounds, no tenderness, no guarding Integumentary: Present: no rash, warm and dry Neurologic: Present: alert and oriented x3 Psychiatric: Present: mood/affect appropriate, cooperative - Lab 05/29/18 03:34 05/29/18 03:34 Most recent lab results ABG pH 7.53 pH Units (7.32-7.45) H 05/28/18 17:44 ABG pCO2 37 mmHg (35-45) 05/28/18 17:44 ABG pO2 97 mmHg (85-104) 05/28/18 17:44 ABG HCO3 31 mEq/L (21-27) H 05/28/18 17:44 ABG O2 Saturation 98 % (95-98) 05/28/18 17:44 Calcium 7.6 mg/dL (8.6-10.3) L 05/29/18 03:34 Phosphorus 2.5 mg/dL (2.7-4.5) L 05/28/18 04:38 Magnesium 1.8 mg/dL (1.6-2.6) 05/28/18 04:38 Consult Discharge Plan - Plan Referrals: Lupe Mcdonnell, DENISE [Primary Care Provider] -
--- NOTE | 2018-05-29 10:52 | Internal Med Progress Note ---
Hospitalist Progress Note - Encounter Date of Encounter: 05/29/18 Time of Encounter: 10:49 - Subjective Interval History: Pt vomiting during HD 05/28/2018 then developed diarrhea. Sister at bedside 05/28/2018, stated pt appears confused. Sister states last time he had similar symptoms, he was "in a coma for 10 days." Pt denies fever or chills, positive nausea and vomiting. Denies abdominal pain. Denies CP or SOB HE was alert and oriented times 2. - Exam Vitals: Temp Pulse Resp BP Pulse Ox 98.1 F 110 22 101/69 96 05/29/18 08:01 05/29/18 10:00 05/29/18 10:00 05/29/18 10:00 05/29/18 10:00 Exam: Exam: General: Alert and oriented 3; lying in bed in no acute distress HEENT:EOM, pupils equal, round and reactive. Cardiovascular:Normal S1 & S2, tachycardia; no rubs, murmurs or gallops. No JVD. Pulse regular. Lungs: Diffuse rhonchi appreciated in the right posterior thorax. Abdomen:Soft, non-tender, no rigidity. Extremities:No deformity, no edema or tenderness, no joint swelling or clubbing. Neurological:Normal cognition and motor skills. Pulses:Carotid and radial pulses normal +2. Skin:Normal color, no rash, no lesions. - Assessment and Plan (1) Sepsis Current Visit: Yes Status: Acute Assessment and Plan: Patient presents with fever, elevated white blood cell count and tachycardia in the 140s in the setting of right upper lobe consolidation consistent with sepsis. WBC up today from 11.0 yesterday 05/28/2018. Heart rate still elevated. Will obtain EKG 12 lead. He as nauseous and vomiting during HD 05/28/2018.HE then developed diarrhea. Lactic acid on admission was 1.5. Given the patient's end-stage renal disease the 30 mL/kg fluid bolus was not given. He did receive 250 mL boluses 2 and about another liter of NS. Discussed with nephrology who states to avoid scheduled fluids for now. fluid support per nephrology recommendation. Continue with Zosyn, and Vancomycin. Will change Zithromax to levaquin. Concerned pt may have multiple sources of infection. Will check Lipase. Non-contrast abdominal CT showing GB wall thickening and gall stone. Will check abdominal ultrasound resp panel + for rhino/entero virus Chest x ray and CT showing RUL PNA Following-up blood cultures, legionella, strep, and mycoplasma results. Consulting ID for assistance. Keep pt on 2N/ICU over flow for close monitoring. (2) HCAP (healthcare-associated pneumonia) Current Visit: Yes Status: Acute Assessment and Plan: Fever, cough, leukocytosis and findings of a Right upper lobe consolidation in a patient with end-stage renal disease on hemodialysis. Patient started on broad-spectrum antibiotics for coverage for healthcare asso ciated pneumonia. Continue with Zosyn, and Vancomycin. Will change Zithromax to levaquin Blood culture, Legionella, strep urine and resp panel results pending (3) End stage renal disease Current Visit: Yes Status: Acute Assessment and Plan: End-stage renal disease on dialysis Monday. Nephrology consulting and pt is s/p HD today (4) Hypoglycemia Current Visit: Yes Status: Acute Assessment and Plan: Etiology unclear. Monitoring glucose Q 30 minutes and replacing with prn dextrose and alternating with glucagon for now. (5) Encephalopathy acute Current Visit: Yes Status: Acute Assessment and Plan: ? metabolic encephalopathy. Likely due to acute illness. Will continue to monitor closely on higher acuity floor. (6) Cough Current Visit: Yes Status: Acute Assessment and Plan: 1 week history of productive cough associated with fever and shortness of breath. Found to have a elevated white blood cell count and right lower lobe consolidation on imaging consistent with pneumonia. Treating for healthcare associated pneumonia. DVT Prophylaxis: SCD - Summary of Assessment and Plan Summary of Assessment and Plan: History of present illness: Dr. Ryan Patient was seen and examined on 05/27/2018 Mr. Herrera is a 42 year old male with a past medical history of end-stage renal disease on hemodialysis and hypertension who presented to the ED due to a 1 week history of productive cough and shortness of breath. Patient reports symptoms of an ongoing for the past week. He noted a subjective fever earlier today. Reports productive cough. On arrival was found to be in sinus tachycardia with a heart rate in the 140s with an elevated white blood cell count of 12. Given the patient's end-stage renal disease the 30 mL/kg fluid bolus was not given. He did receive 250 mL boluses 2. Patient's heart rate and tachycardia improved during the ED course. Patient was started on broad-spectrum antibiotics including bank, cefepime and azithromycin. Patient's chest x-ray is concerning for a right upper lobe infiltrate. A CT scan was followed up to further evaluate x-ray findings which did confirm a right upper lobe consolidation concerning for pneumonia. Patient is anuric and thus cannot produce any urine. Urine Legionella and strep were not ordered in the ED. ED provider discussed case with nephrology who will follow the patient on the inpatient service for HD. - Time Spent with Patient Total time spent is greater than 50% in coordination of care (as documented) at patient's floor/unit and/or counseling patient: less than 15 minutes Plan of Care Discussed with: patient Internal Medicine: Result - Labs CBC & Chem 7: 05/29/18 03:34 05/29/18 03:34 Labs: Short CBC 05/29/18 Range/Units 03:34 WBC 24.2 H D (4.3-11.1) K/mcL Hgb 12.8 L (12.9-16.9) g/dL Hct 38.2 (37.5-50.1) % Plt Count 81 L (140-400) K/mcL Neutrophils # 22.8 H (1.6-8.9) K/mcL BMP 05/29/18 03:34 Sodium 137 Potassium 3.5 Chloride 95 L Carbon Dioxide 29 BUN 28 H Creatinine 4.86 H Glucose 89 Calcium 7.6 L - ABG Interpretation ABG results: ABG ABG pH 7.53 pH Units (7.32-7.45) H 05/28/18 17:44 ABG pCO2 37 mmHg (35-45) 05/28/18 17:44 ABG pO2 97 mmHg (85-104) 05/28/18 17:44 ABG O2 Saturation 98 % (95-98) 05/28/18 17:44 PT/INR, D-dimer PT 18.9 Seconds (9.4-12.1) H 05/28/18 04:38 - Impressions Impressions Chest X-Ray 05/28/18 16:24 IMPRESSION: Stable examination. No significant change in right upper lobe pneumonia. D/ / 05/28/2018 16:54:46 Rodolfo Benitez MD / maddy Interpreting Provider: Rodolfo Benitez MD Abdomen/Pelvis CT 05/28/18 16:25 IMPRESSION: 1. Although not well seen on this noncontrast CT, there is a hyperdensity in the gallbladder lumen which may represent a stone and suggestion of gallbladder wall thickening. If patient has right upper quadrant abdominal pain, recommend dedicated right upper quadrant ultrasound for further evaluation. 2. [place] renal atrophy. 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 3. Fluid in the rectum in keeping with clinical history of diarrhea. 4. Bilateral hip dysplasia with large left joint effusion and multiple loose bodies, measuring up to 3.8 cm in size. 5. Grade 2 anterolisthesis of L5 on S1 due to bilateral L5 pars defects. This can be a cause of chronic low back pain in some patients. D/ /28/2018 18:42:51 Sincere Yepez MD / brian Interpreting Provider: Sincere Yepez MD Consult Discharge Plan - Plan Referrals: Lupe Mcdonnell, DIESEL ENGINE I PIPE FITTER [Primary Care Provider] - (1) Sepsis Qualifiers: Sepsis type: sepsis due to unspecified organism Qualified Code(s): A41.9 - Sepsis, unspecified organism
[2018-05-29] MEDS ORDERED: Ondansetron 4 MG/2 ML VIAL IVP PRN (10:54)
[2018-05-29] MEDS ORDERED: LEVOFLOXACIN 750 MG/150 ML IVPB ONE (11:00)
[2018-05-29 14:17] LABS: Albumin 3.3 g/dL (3.5-5.7); Bilirubin,Direct 0.4 mg/dL (0.0-0.2); Bilirubin,Indirect 0.4 mg/dL (0.0-1.2); Bilirubin,Total 0.8 mg/dL (0.3-1.0); Globulin 3.4 g/dL (2.4-3.5); Total Protein 6.7 g/dL (6.4-8.9)
[2018-05-29 14:23] LABS: INR 1.9
[2018-05-29 14:24] LABS: Prothrombin Time 21.1 Seconds (9.4-12.1)
[2018-05-29 17:54] LABS: Source,Synovial Fluid LEFT HIP EFFUSION
--- NOTE | 2018-05-29 19:59 | Electrocardiograph Report ---
[address] [place], [place] [address] Test Date: 2018-05-27 Pat Name: Simona Herrera Department: [id number] Room: 10 Gender: M Digital Media Manager: : 1975 Requested By: Ortega Da Silva Order Number: [id number] Reading MD: Kathia Ramos Measurements Intervals [place] Rate: 145 P: -21 [place]: 119 QRS: -60 QRSD: 93 T: 45 QT: 258 QTc: 401 Interpretive Statements Sinus tachycardia Probable left atrial enlargement Left anterior fascicular block Probable left ventricular hypertrophy Electronically Signed On 05-29-2018 19:57:17 EST by Kathia Ramos
[2018-05-29 20:52] LABS: Appearance,Synovial Fluid Hazy (Clear-Hazy); Color,Synovial Fluid Straw (Straw)
--- NOTE | 2018-05-29 21:06 | Infectious Disease Consult ---
Date of Encounter: 05/29/18 Time of Encounter: 15:10 Assessment and Plan (1) Sepsis Status: Acute Assessment and plan: - On presentation met 4/4 SIRS criteria with Fever of 101.8, HR 145, RR 20, WBC 12.0 - Lactic acid wnl at 1.5 - Signs of end organ damage with metabolic encephalopathy - Probable source: Pulmonary- PNA - Causative organism: unclear - Continues to meet sepsis criteria with tachycardia, tachypnea, WBC of 24.2, 10% bandemia - Mild elevation in LFTs of unclear etiology but possibly related to sepsis. AST 46, ALk 150 - Also noted to be hypoglycemic yesterday which could be related to acute illness. - RIP positive for rhinovirus - GI panel negative - Strep pneumo Ag and Legionella Ag have been ordered however patient does not make urine. - ROS difficult to determine as patient is altered. Physical exam shows some diminished breath sounds, otherwise unimpressive - Family reports improvement of symptoms. - Blood cultures 05/27 x2 NG - Blood cultures 05/28 x 2 NG - CXR on admission as well as CT chest 05/28 show significant RUL consolidation which likely represents PNA - CT abd/pelvis on 05/28 shows questionable cholecystitis and hip dysplasia, however in the absence of symptoms this is less likely the source of infection ABx thus far: Given one dose of Azithromycin and cefepime Current regimen of Levaquin (day 1), Zosyn (day2), Vancomycin (day 3) Plan - Suspect that this initially started as a viral illness with spike in WBC possibly secondary to an aspiration event/ bacterial PNA. - Patient is immunocompromised due to ESRD - Even as he is not complaining of BELL or neck stiffness, have low threshold for LP if his condition worsens or leukocytosis worsens as he is immunocompromised and has AMS. - Recommending continuing Vanc, Zosyn, Levaquin (day 3 of abx) - Will order MRSA swab and can likely discontinue vanc if negative - If legionella and RIP are negative, can discontinue levaquin for atypical coverage. - Will order sputum culture. Qualifiers: Sepsis type: sepsis due to unspecified organism Qualified Code(s): A41.9 - Sepsis, unspecified organism (2) Nausea & vomiting Status: Acute Assessment and plan: - as above for sepsis - possible aspiration events Qualifiers: Vomiting type: unspecified Vomiting Intractability: intractable Qualified Code(s): R11.2 - Nausea with vomiting, unspecified (3) Encephalopathy acute Status: Acute Assessment and plan: - Likely secondary to sepsis as above - Also less likely is encephalitis, uremia, hepatic - Management of underlying conditions as above. (4) HCAP (healthcare-associated pneumonia) Status: Acute Assessment and plan: as above for sepsis abx as above (5) End stage renal disease Status: Chronic Assessment and plan: Secondary to unknown congenital disease - MWF dialysis at home - Management per nephro and primary team - Renally dose medications Infectious Disease HPI - Data of Consult Patient: new to practice Consult date: 05/29/18 Requesting Physician: Louis Ryan MD Primary Care Provider: Lupe Mcdonnell CNP - Consult Narrative Reason for consult: Worsening Leukocytosis History of present illness: Mr. Herrera is a 42 year old male who presented to ED on 05/27 for cough, SOB, fever, and AMS. ID was consulted on 05/29 for worsening leukocytosis. Mr. 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 His family states that he had previously been well until about Monday when he began to experience fevers. Family measured the fevers and report nearly 106 degrees Fahrenheit. They also states he has been increasingly SOB with a non productive cough. He denied AMS but family states that he is not his normal self. He has not been making sense and appeared confused to them. He denied chills, headache, neck stiffness, nausea, vomiting, changes to bowel movements, abdominal pain, rashes, new joint pains, recent travel. He does not make urine. He lives at home with his sister. On presentation to the ED, patient was septic with fever of 101.8, HR 145, RR 20 and leukocytosis of 12.0. Lactic acid was wnl at 1.5. AST mildly elevated at 45 and Alk phos at 150. ALT wnl at 24. CXR on admission was significant for RUL pneumonia. CT was also obtained of both chest and abd/pelvis which showed: RUL consolidation with questionable RLL infiltrate. Also showed hypodenisty in the gallbladder with questionable thickening to suggest cholecystitis, hamilton renal atrophy consistent with PMhx, fluid in rectum, and bilateral hip dysplasia with fluid. Respiratory infectious panel obtained at positive for Rhinovirus. Blood cultures obtained on 05/27 and 05/28 negative for growth. Today during interview, patient states that he is feeling well with no complaints. He denies fevers, chills, nausea, vomiting, pain. His family and nursing however admit that he had an episode of emesis this morning. He does admit to a cough but is not feeling SOB. CC: Louis Ryan MD Past Med Surg Social Fam HX - Past Medical History Medical history: dialysis, hyperlipidemia, hypertension, renal disease Psychiatric history: no psych history - Past Surgical History Additional surgical history: kidney transplant-1994. dialysis [facility] [place] - Social History Smoking Status: Never smoker Smokeless Tobacco Status: No Alcohol use: none Drug use: none - Family History Father History Unknown: Yes Mother History Unknown: Yes Infectious Disease-CN:Meds Ergocalciferol (VITAMIN D2) [Vitamin D2] 50,000 unit PO QWEEK 05/28/18 [History] Folic Acid 1 mg PO DAILY 05/28/18 [History] Lisinopril [Zestril] 40 mg PO BID 05/28/18 [History] Phenytoin ER [Dilantin ER] 200 mg PO BID 05/28/18 [History] RX: Amlodipine Besylate 10 mg PO DAILY 05/28/18 [History] RX: CloNIDine Patch [Catapres-Tts] 0.3 patch TD Q72H 05/28/18 [History] RX: Furosemide [Lasix] 40 mg PO BID PRN 05/28/18 [History] RX: Hydralazine HCl 100 mg PO BID 05/28/18 [History] RX: Lovastatin [Mevacor] 20 mg PO HS 05/28/18 [History] Allergy/AdvReac Type Severity Reaction Status Date / Time No Known Allergies Allergy Verified 05/28/18 07:44 ROS unobtainable: due to mental status - Constitutional Constitutional: Present: fever(s) (per family). Absent: chills, headache(s), malaise - Cardiovascular Cardiovascular: Present: dyspnea, dyspnea on exertion. Absent: chest pain, edema, irregular heart rhythm, palpitations, pedal edema - Respiratory Respiratory: Present: cough, dyspnea on exertion. Absent: hemoptysis, excessive phlegm production, pain with cough - Gastrointestinal Gastrointestinal: Absent: abdominal pain, change in bowel habits, constipation, diarrhea, hematemesis, nausea, vomiting - Integumentary Integumentary: Absent: new lesions Exam - Constitutional Vitals: Temp Pulse Resp BP Pulse Ox 97.7 F 101 11 132/83 100 05/29/18 19:00 05/29/18 20:00 05/29/18 20:00 05/29/18 20:00 05/29/18 20:00 General appearance: cooperative, no acute distress, thin, no febrile - Head Head exam: Present: atraumatic, normal inspection, normocephalic - Eye Eye exam: Present: conjunctival injection, EOMI, normal appearance, conjuntiva pink. Absent: scleral icterus Pupils: Present: PERRL - ENT ENT exam: Present: mucous membranes moist, normal exam - Neck Neck exam: Present: full ROM. Absent: lymphadenopathy, meningismus Additional comments: No meningeal signs - Respiratory Respiratory exam: Present: decreased breath sounds (in bases and more on right). Absent: accessory muscle use, rales, respiratory distress, tachypnea - Cardiovascular Cardiovascular exam: Present: RRR, +S1, +S2, tachycardia - GI/Abdominal GI/Abdominal exam: Present: hypoactive bowel sounds, soft. Absent: firm, guarding, rebound, rigid, tenderness - Extremities Exam Extremities exam: Absent: calf tenderness, joint swelling, pedal edema, tenderness Additional comments: Bilateral hips with fluid retention, no warmth or pain on palpation - Neurological Exam Neurological exam: Present: alert, CN II-XII intact, no focal deficits. Absent: motor sensory deficit, facial droop - Psychiatric Psychiatric exam: Present: normal affect. Absent: anxious, depressed Additional comments: answers questions appropriately - Skin Skin exam: Present: dry, warm. Absent: erythema Infectious Disease CN: Results - Labs CBC & Chem 7: 05/30/18 03:47 05/30/18 03:47 Cultures: Cultures 05/28/18 17:02 Blood Culture - Preliminary Peripheral Venipuncture Culture is incubating and being continuously monitored for growth. Final report to follow. 05/28/18 17:07 Blood Culture - Preliminary Peripheral Venipuncture Culture is incubating and being continuously destiny tored for growth. Final report to follow. 05/27/18 18:43 Blood Culture - Preliminary Peripheral Venipuncture Culture is incubating and being continuously monitored for growth. Final report to follow. 05/27/18 18:43 Blood Culture - Preliminary Peripheral Venipuncture Culture is incubating and being continuously monitored for growth. Final report to follow. Serology: Serology 05/29/18 05/29/18 05/29/18 Range/Units 17:00 17:00 03:34 Synovial Source LEFT HIP EFFUSION Synovial Color Straw (Straw) Synovial Appearance Hazy (Clear-Hazy) Synovial Volume 13.0 mL Synovial RBC 0.002 (0.000 - 0.002) M/mcl Synovial Tot Nuc Cell 984 H (0-200) TNC/mcL Synovial Band Neuts Test Not Performed Synovial Basophils Test Not Performed Synovial Eosinophils Test Not Performed Synovial Seg Neuts % 99.0 % Synovial Lymphocytes % 1.0 % Synovial Monocytes % Test Not Performed Synovial Other Cells % Test Not Performed Synovial Crystals No Crystals Seen (None Seen) Synovial Glucose 79 (No Ref Range) mg/dL Synovial Total Protein 3.9 (No Ref Range) g/dL Synovial LDH 137 (No Ref Range) Units/L Stl C. cayetanensis PCR (Not detect) Stool Rotavirus A PCR (Not detect) Stl Adenov F 40/41 PCR (Not detect) Stool Astrovirus (PCR) (Not detect) Stool Campylobacter PCR (Not detect) Stl C. diff Tox A/B PCR (Not detect) Stool Cryptosporidium PCR (Not detect) Stl Sh Tox Pr E STEC PCR (Not detect) Stool E coli O157 PCR (Not detect) Stl Enterotoxigenic E PCR (Not detect) Stool EPEC (PCR) (Not detect) Stool EAEC (PCR) (Not detect) Stl E. histolytica PCR (Not detect) Stool Giardia Lamblia PCR (Not detect) Stool Salmonella PCR (Not detect) Stool Sapovirus (PCR) (Not detect) Stl P. shigelloides PCR (Not detect) Stl Shigella/EIEC PCR (Not detect) St Y.enterocolitica PCR (Not detect) Stool Vibrio (PCR) (Not detect) Stl Vibrio cholerae PCR (Not detect) Stl Norovirus GI/GII PCR (Not detect) Stl GI Panel (PCR) Com Chlamy pneumoniae PCR Not Detected (Not Detect) Adenovirus (PCR) Not Detected (Not Detect) B. pertussis DNA (PCR) Not Detected (Not Detect) B.parapertussis DNA PCR Not Detected (Not Detect) Coronavirus OC43 (PCR) Not Detected (Not Detect) Coronavirus HKU1 (PCR) Not Detected (Not Detect) Coronavirus 229E (PCR) Not Detected (Not Detect) Coronavirus NL63 (PCR) Not Detected (Not Detect) Hep Bs Antigen (Nonreactive) Hep Bs Antibody mIU/mL Human Metapneumovir PCR Not Detected (Not Detect) Influenza A (H1) PCR Not Detected (Not Detect) Influ A (H1N1/09) PCR Not Detected (Not Detect) Influenza A (H3) PCR Not Detected (Not Detect) Influenza A Untype (PCR) Not Detected (Not Detect) Influenza Type B (PCR) Not Detected (Not Detect) M.pneumoniae DNA (PCR) Not Detected (Not Detect) Parainfluenza 1 (PCR) Not Detected (Not Detect) Parainfluenza 2 (PCR) Not Detected (Not Detect) Parainfluenza 3 (PCR) Not Detected (Not Detect) Parainfluenza 4 (PCR) Not Detected (Not Detect) RSV (PCR) Not Detected (Not Detect) Entero/Rhino (PCR) DETECTED A (Not Detect) 05/28/18 05/28/18 Range/Units 21:30 07:04 Synovial Source Synovial Color (Straw) Synovial Appearance (Clear-Hazy) Synovial Volume mL Synovial RBC (0.000 - 0.002) M/mcl Synovial Tot Nuc Cell (0-200) TNC/mcL Synovial Band Neuts Synovial Basophils Synovial Eosinophils Synovial Seg Neuts % % Synovial Lymphocytes % % Synovial Monocytes % Synovial Other Cells % Synovial Crystals (None Seen) Synovial Glucose (No Ref Range) mg/dL Synovial Total Protein (No Ref Range) g/dL Synovial LDH (No Ref Range) Units/L Stl C. cayetanensis PCR Not detected (Not detect) Stool Rotavirus A PCR Not detected (Not detect) Stl Adenov F 40/41 PCR Not detected (Not detect) Stool Astrovirus (PCR) Not detected (Not detect) Stool Campylobacter PCR Not detected (Not detect) Stl C. diff Tox A/B PCR Not detected (Not detect) Stool Cryptosporidium PCR Not detected (Not detect) Stl Sh Tox Pr E STEC PCR Not detected (Not detect) Stool E coli O157 PCR Not detected (Not detect) Stl Enterotoxigenic E PCR Not detected (Not detect) Stool EPEC (PCR) Not detected (Not detect) Stool EAEC (PCR) Not detected (Not detect) Stl E. histolytica PCR Not detected (Not detect) Stool Giardia Lamblia PCR Not detected (Not detect) Stool Salmonella PCR Not detected (Not detect) Stool Sapovirus (PCR) Not detected (Not detect) Stl P. shigelloides PCR Not detected (Not detect) Stl Shigella/EIEC PCR Not detected (Not detect) St Y.enterocolitica PCR Not detected (Not detect) Stool Vibrio (PCR) Not detected (Not detect) Stl Vibrio cholerae PCR Not detected (Not detect) Stl Norovirus GI/GII PCR Not detected (Not detect) Stl GI Panel (PCR) Com See below Chlamy pneumoniae PCR (Not Detect) Adenovirus (PCR) (Not Detect) B. pertussis DNA (PCR) (Not Detect) B.parapertussis DNA PCR (Not Detect) Coronavirus OC43 (PCR) (Not Detect) Coronavirus HKU1 (PCR) (Not Detect) Coronavirus 229E (PCR) (Not Detect) Coronavirus NL63 (PCR) (Not Detect) Hep Bs Antigen Nonreactive (Nonreactive) Hep Bs Antibody 13.16 mIU/mL Human Metapneumovir PCR (Not Detect) Influenza A (H1) PCR (Not Detect) Influ A (H1N1/09) PCR (Not Detect) Influenza A (H3) PCR (Not Detect) Influenza A Untype (PCR) (Not Detect) Influenza Type B (PCR) (Not Detect) M.pneumoniae DNA (PCR) (Not Detect) Parainfluenza 1 (PCR) (Not Detect) Parainfluenza 2 (PCR) (Not Detect) Parainfluenza 3 (PCR) (Not Detect) Parainfluenza 4 (PCR) (Not Detect) RSV (PCR) (Not Detect) Entero/Rhino (PCR) (Not Detect) Consult Discharge Plan - Plan Referrals: Lupe Mcdonnell, POLISHER SAND [Primary Care Provider] - - Attending Attestation I examined this patient and my medical decision-making was reviewed with the Resident Physician. I agree with the documented findings, disposition and treatment plan as described except to the extent set forth below. This is an addendum to original report dictated by resident physician. Please refer to resident's note for full detail. Patient is a 42-year-old gentleman who had extensive past medical history including congenital kidney issues with the transplant in the past most recent transplant failed about 12 years ago and he has been on hemodialysis through a fistula in the left upper extremity. Patient is not currently taking any immunosuppressive therapy. Patient presented to [place] on 05/27/2018 with cough, shortness of breath, fevers and altered mental status were asked to evaluate for worsening leukocytosis. Workup revealed that the patient had rhinovirus on the PCR of the nasal swab, also had a large right lobe pneumonia unknown causative organism. Patient has been started on broad-spectrum antibiotics we were asked to evaluate make further recommendations. Currently patient is laying in bed appears comfortable he just came back from an arthrocentesis of his hip. He is alert oriented 4 he gave me answers all my questions. He seems to be more oriented and more alert than what previous notes insinuated. Assessment and plan: Sepsis Pneumonia right middle lung Viral syndrome with rhinovirus End-stage renal disease on hemodialysis Persistent leukocytosis Recommendations: Patient with pneumonia likely aspiration because he was having nausea and vomiting. But it could be non-aspiration as well. I do not think the patient has any signs of encephalitis or meningitis. Subtle think we need an LP. Patient also has no bacteremia. At this point we will check MRSA screen, continue broad-spectrum antibiotics, and monitor labs to finalize. CT of the abdomen and pelvis have been reviewed and there is no obvious source of infection. The gallbladder wall thickening is really very subtle and the patient is already on vancomycin and Zosyn and Levaquin which should cover cholecystitis theoretically. I am not sure that if he is having leukemoid reaction for noninfectious etiology. We are unable to get urine legionella and pneumococcal antigen. I asked nursing staff with the patient and proper precaution because of his rhinovirus Monitor labs and for drug toxicity goal vancomycin trough 10-15 we will ask pharmacy to help dosing with dialysis
[2018-05-30 04:02] LABS: Mean Corpuscular HGB Conc 31.9 g/dL (31.6-35.5); Mean Corpuscular Hemoglobin 32.6 pg (28.0-33.3); Mean Platelet Volume 10.5 fL (9.4-12.4); Red Cell Distribution Width 13.9 % (11.5-14.5)
[2018-05-30 04:03] LABS: Hematocrit 38.6 % (37.5-50.1); Hemoglobin 12.3 g/dL (12.9-16.9); Mean Corpuscular Volume 102.4 fL (83.0-100.0); Red Blood Count 3.77 M/mcL (4.19-5.50)
[2018-05-30 04:06] LABS: Platelet Count 80 K/mcL (140-400)
[2018-05-30 04:19] LABS: Calcium 7.2 mg/dL (8.6-10.3); Potassium 3.6 mEq/L (3.5-5.1)
[2018-05-30 04:38] LABS: Lymphocytes # 2.6 K/mcL (0.6-4.6); Monocytes # 1.1 K/mcL (0.0-1.3); Neutrophils # 22.5 K/mcL (1.6-8.9); Platelet Estimate Slight Decrease (Normal)
[2018-05-30] MEDS: Piperacillin/Tazobactam 3.375 GM in 0.9 % Sodium Chloride Mini Bag 100 ML IVPB SCH ×2 (05:09→19:30)
[2018-05-30] MEDS ORDERED: 0.9 % Sodium Chloride 2,000 ML ONE (06:09)
[2018-05-30] MEDS ORDERED: 0.9 % Sodium Chloride 250 ML IVC PRN (06:50)
[2018-05-30] MEDS: *HR* Dextrose 50 % in Water (Syg) 50 ML SYRINGE IVP PRN (07:58)
--- NOTE | 2018-05-30 09:28 | Nephrology Progress Note ---
Addendum entered and electronically signed by Alf Floyd DO 05/30/18 16:48: I have personally performed a face to face evaluation on this patient. I have reviewed and agree with the care plan. History and Exam by me shows: ESRD on HD MWF. Discussed hypoglycemia and potential risk factors and differential diagnoses with Dr. Nascimento. Original Note: Date of Encounter: 05/30/18 Time of Encounter: 09:26 - Assessment and Plan (1) ESRD (end stage renal disease) on dialysis Current Visit: Yes Status: Acute Current regimen is MWF at [facility]. HD ordered for today. Strict I/O Avoid nephrotoxins and renal dose. (2) Cough Current Visit: Yes Status: Acute Per primary. (3) Hypoglycemia Current Visit: Yes Status: Acute Appears resolved. Target glucose 140-180. (4) HCAP (healthcare-associated pneumonia) Current Visit: Yes Status: Acute Per ID, appreciate recommendations. (5) Sepsis Current Visit: Yes Status: Acute Per ID, appreciate recommendations. Is on Iso for + RhinoVirus and + MRSA swab. Qualifiers: Sepsis type: sepsis due to unspecified organism Qualified Code(s): A41.9 - Sepsis, unspecified organism Subjective Principal diagnosis: elevated BP Interval history: Pt seen and evaluated, is doing well. Emesis has stopped for now. Denies shortne ss of breath or chest pain. Admits to fatigue. Objective - Vital Signs Vital signs: Vital Signs Temp Pulse Resp BP Pulse Ox 05/30/18 08:00 97.6 F 86 14 145/84 99 05/30/18 07:00 89 14 126/86 99 05/30/18 06:00 86 14 137/91 99 05/30/18 05:00 89 18 142/85 98 05/30/18 03:38 98.1 F 05/30/18 03:00 89 19 133/90 100 05/30/18 02:00 92 19 141/88 100 05/30/18 01:00 95 13 139/87 100 05/30/18 00:00 98.1 F 93 21 110/83 96 05/29/18 23:00 97 20 126/76 97 05/29/18 22:00 100 17 126/88 99 05/29/18 21:00 98 22 128/82 98 05/29/18 20:00 101 11 132/83 100 05/29/18 19:00 97.7 F 101 23 108/66 98 05/29/18 17:52 98 18 112/77 96 05/29/18 17:00 98.4 F 98 22 87/73 96 05/29/18 15:00 99 22 113/71 96 05/29/18 14:00 105 22 108/67 96 05/29/18 13:00 107 22 104/67 96 05/29/18 12:00 98.5 F 101 22 115/66 96 05/29/18 11:00 105 22 107/65 96 05/29/18 10:00 110 22 101/69 96 Intake and Output 05/29/18 05/30/18 05/30/18 23:59 07:59 15:59 Intake Total 100 / 100 360 / 360 100 / 100 Balance 100 / 100 360 / 360 100 / 100 Intake: IV Fluids 100 / 100 100 / 100 Zosyn 3.375 GM In 0.9 % Sodium 100 / 100 100 / 100 Chloride (Mini-Bag +) 100 ML @ 25 mls/hr IVPB Q12HR [facility] Rx#: [id number] Oral 0 / 0 360 / 360 Other: Stool Size Moderate Smear Stool Consistency liquid liquid Stool Characteristics Mucoid Normal for Patient Stool Color Green Green # Bowel Movements 1 1 Weight 43.7 kg Blood Glucose* 66 62 60 Patient Weight 05/30/18 23:59 Weight 43.7 kg - General Appearance General appearance: Present: well-developed, well-nourished EENT: Present: ATNC, hearing intact, vision intact Neck: Present: supple Respiratory: Present: clear Cardiology: Present: no edema, normal S1, normal S2 Dialysis Vascular Access: Arteriovenous Fistula thrill: Yes bruit: Yes Gastrointestinal: Present: normoactive bowel sounds, no tenderness, no guarding Integumentary: Present: no rash, warm and dry Neurologic: Present: alert and oriented x3 Musculoskeletal: Present: no deformities Psychiatric: Present: mood/affect appropriate, cooperative - Lab 05/30/18 03:47 05/30/18 03:47 Most recent lab results ABG pH 7.53 pH Units (7.32-7.45) H 05/28/18 17:44 ABG pCO2 37 mmHg (35-45) 05/28/18 17:44 ABG pO2 97 mmHg (85-104) 05/28/18 17:44 ABG HCO3 31 mEq/L (21-27) H 05/28/18 17:44 ABG O2 Saturation 98 % (95-98) 05/28/18 17:44 Calcium 7.2 mg/dL (8.6-10.3) L 05/30/18 03:47 Phosphorus 2.5 mg/dL (2.7-4.5) L 05/28/18 04:38 Magnesium 1.8 mg/dL (1.6-2.6) 05/28/18 04:38 Consult Discharge Plan - Plan Referrals: Lupe Mcdonnell, [employer] [Primary Care Provider] -
--- NOTE | 2018-05-30 11:56 | Infectious Disease Progress No ---
Date of Encounter: 05/30/18 Time of Encounter: 10:05 - Assessment and Plan (1) Sepsis Current Visit: Yes Status: Acute - On presentation met 4/4 SIRS criteria with Fever of 101.8, HR 145, RR 20, WBC 12.0 - Lactic acid wnl at 1.5 - Signs of end organ damage with metabolic encephalopathy - Probable source: Pulmonary- PNA - Causative organism: unclear - Continues to meet sepsis criteria with tachycardia in 90s, leukocytosis at 26.2 which is mildly worsened from 24.2 yesterday. Afebrile since 05/28 - Mild elevation in LFTs of unclear etiology but possibly related to sepsis. AST 46, ALk 150 - Also noted to be hypoglycemic yesterday which could be related to acute illness. - RIP positive for rhinovirus - GI panel negative - Hip aspiration yesterday shows only 984 nucleated cells. Unlikely source of infection - Strep pneumo Ag and Legionella Ag have been ordered however patient does not make urine. - MRSA swab positive - ROS difficult to determine as patient is altered. Unclear baseline, no complaints at this time Physical exam shows some diminished breath sounds, otherwise unimpressive - Blood cultures 05/27 x2 NG - Blood cultures 05/28 x 2 NG - CXR on admission as well as CT chest 05/28 show significant RUL consolidation which likely represents PNA - CT abd/pelvis on 05/28 shows questionable cholecystitis and hip dysplasia, however in the absence of symptoms this is less likely the source of infection - RUQ US shows diffuse gallbladder thickening with a negative sonographic Hoffman sign. No evidence of cholelithiasis as well as a 6 mm polyp. ABx thus far: Given one dose of Azithromycin and cefepime Current regimen of Levaquin (day 2), Zosyn (day3), Vancomycin (day 4) Plan -- Clinically I do feel as if he is improving and stable. Increasing leukocytosis may be secondary to a delayed reaction. We will continue current r egimen at this time. - Suspect that this is mostly due to pneumonia with positive rhinovirus and con solidation on CT. - Peripheral smear pending. - Patient is immunocompromised due to ESRD - Recommending continuing Vanc, Zosyn, Levaquin (day 4 of abx) - Will order sputum culture, has not yet been able to produce sputum. Lower suspicion for abdominal or joint etiology. Qualifiers: Qualified Code(s): A41.9 - Sepsis, unspecified organism (2) Nausea & vomiting Current Visit: Yes Status: Acute - as above for sepsis - possible aspiration events Qualifiers: Qualified Code(s): R11.2 - Nausea with vomiting, unspecified (3) Encephalopathy acute Current Visit: Yes Status: Acute - Likely secondary to sepsis as above - Also less likely is encephalitis, uremia, hepatic - Management of underlying conditions as above. -- Improving, unclear baseline, no family present at bedside (4) HCAP (healthcare-associated pneumonia) Current Visit: Yes Status: Acute As above for sepsis (5) End stage renal disease Current Visit: Yes Status: Chronic Secondary to unknown congenital disease - MWF dialysis at home - Management per nephro and primary team - Renally dose medications - Subjective Interval history: Patient was seen and examined at bedside. He states overall he is feeling well with no current complaints. He denies any further episode of emesis or nausea which is confirmed by nursing. He states he has not had any fevers, chills, cough, shortness of breath, pain. Of note he is alert and oriented 2 to my ex am this morning which is an improvement from yesterday. No acute events overnight. No family present at bedside Infect Dis PN-Objective Data - Labs CBC & Chem 7: 05/30/18 03:47 05/30/18 03:47 Labs: Laboratory Results - last 24 hr 05/29/18 05/29/18 05/29/18 02:18 03:34 11:48 WBC RBC Hgb Hct MCV MCH MCHC RDW Plt Count MPV Seg Neutrophils % Lymphocytes % Monocytes % Neutrophils # Lymphocytes # Monocytes # Platelet Estimate PT INR Sodium Potassium Chloride Carbon Dioxide BUN Creatinine Est GFR ( Amer) Est GFR (Non-Af Amer) BUN/Creatinine Ratio Glucose POC Glucose 55 L 81 Calculated Osmolality Calcium Total Bilirubin Direct Bilirubin Indirect Bilirubin AST ALT Alkaline Phosphatase Serum Total Protein Albumin Globulin Albumin/Globulin Ratio Fl Pathologist Review Synovial Source Synovial Color Synovial Appearance Synovial Volume Synovial RBC Synovial Tot Nuc Cell Synovial Band Neuts Synovial Basophils Synovial Eosinophils Synovial Seg Neuts % Synovial Lymphocytes % Synovial Monocytes % Synovial Other Cells % Synovial Crystals Synovial Glucose Synovial Total Protein Synovial LDH Nasal Screen MRSA (PCR) Random Vancomycin Phenytoin 3.0 L 05/29/18 05/29/18 05/29/18 12:34 12:34 17:00 WBC RBC Hgb Hct MCV MCH MCHC RDW Plt Count MPV Seg Neutrophils % Lymphocytes % Monocytes % Neutrophils # Lymphocytes # Monocytes # Platelet Estimate PT 21.1 H INR 1.9 Sodium Potassium Chloride Carbon Dioxide BUN Creatinine Est GFR ( Amer) Est GFR (Non-Af Amer) BUN/Creatinine Ratio Glucose POC Glucose Calculated Osmolality Calcium Total Bilirubin 0.8 Direct Bilirubin 0.4 H Indirect Bilirubin 0.4 AST 49 H ALT 39 Alkaline Phosphatase 175 H Serum Total Protein 6.7 Albumin 3.3 L Globulin 3.4 Albumin/Globulin Ratio 1.0 L Fl Pathologist Review See below Synovial Source Synovial Color Synovial Appearance Synovial Volume Synovial RBC Synovial Tot Nuc Cell Synovial Band Neuts Synovial Basophils Synovial Eosinophils Synovial Seg Neuts % Synovial Lymphocytes % Synovial Monocytes % Synovial Other Cells % Synovial Crystals Synovial Glucose Synovial Total Protein Synovial LDH Nasal Screen MRSA (PCR) Random Vancomycin Phenytoin 05/29/18 05/29/18 05/29/18 17:00 17:00 17:49 WBC RBC Hgb Hct MCV MCH MCHC RDW Plt Count MPV Seg Neutrophils % Lymphocytes % Monocytes % Neutrophils # Lymphocytes # Monocytes # Platelet Estimate PT INR Sodium Potassium Chloride Carbon Dioxide BUN Creatinine Est GFR ( Amer) Est GFR (Non-Af Amer) BUN/Creatinine Ratio Glucose POC Glucose 76 Calculated Osmolality Calcium Total Bilirubin Direct Bilirubin Indirect Bilirubin AST ALT Alkaline Phosphatase Serum Total Protein Albumin Globulin Albumin/Globulin Ratio Fl Pathologist Review Synovial Source LEFT HIP EFFUSION Synovial Color Straw Synovial Appearance Hazy Synovial Volume 13.0 Synovial RBC 0.002 Synovial Tot Nuc Cell 984 H Synovial Band Neuts Test Not Performed Synovial Basophils Test Not Performed Synovial Eosinophils Test Not Performed Synovial Seg Neuts % 99.0 Synovial Lymphocytes % 1.0 Synovial Monocytes % Test Not Performed Synovial Other Cells % Test Not Performed Synovial Crystals No Crystals Seen Synovial Glucose 79 Synovial Total Protein 3.9 Synovial LDH 137 Nasal Screen MRSA (PCR) Random Vancomycin Phenytoin 05/29/18 05/29/18 05/29/18 19:34 21:07 21:27 WBC RBC Hgb Hct MCV MCH MCHC RDW Plt Count MPV Seg Neutrophils % Lymphocytes % Monocytes % Neutrophils # Lymphocytes # Monocytes # Platelet Estimate PT INR Sodium Potassium Chloride Carbon Dioxide BUN Creatinine Est GFR ( Amer) Est GFR (Non-Af Amer) BUN/Creatinine Ratio Glucose POC Glucose 69 L 66 L Calculated Osmolality Calcium Total Bilirubin Direct Bilirubin Indirect Bilirubin AST ALT Alkaline Phosphatase Serum Total Protein Albumin Globulin Albumin/Globulin Ratio Fl Pathologist Review Synovial Source Synovial Color Synovial Appearance Synovial Volume Synovial RBC Synovial Tot Nuc Cell Synovial Band Neuts Synovial Basophils Synovial Eosinophils Synovial Seg Neuts % Synovial Lymphocytes % Synovial Monocytes % Synovial Other Cells % Synovial Crystals Synovial Glucose Synovial Total Protein Synovial LDH Nasal Screen MRSA (PCR) Positive A Random Vancomycin Phenytoin 05/29/18 05/30/18 05/30/18 22:40 00:02 02:19 WBC RBC Hgb Hct MCV MCH MCHC RDW Plt Count MPV Seg Neutrophils % Lymphocytes % Monocytes % Neutrophils # Lymphocytes # Monocytes # Platelet Estimate PT INR Sodium Potassium Chloride Carbon Dioxide BUN Creatinine Est GFR ( Amer) Est GFR (Non-Af Amer) BUN/Creatinine Ratio Glucose POC Glucose 66 L 79 69 L Calculated Osmolality Calcium Total Bilirubin Direct Bilirubin Indirect Bilirubin AST ALT Alkaline Phosphatase Serum Total Protein Albumin Globulin Albumin/Globulin Ratio Fl Pathologist Review Synovial Source Synovial Color Synovial Appearance Synovial Volume Synovial RBC Synovial Tot Nuc Cell Synovial Band Neuts Synovial Basophils Synovial Eosinophils Synovial Seg Neuts % Synovial Lymphocytes % Synovial Monocytes % Synovial Other Cells % Synovial Crystals Synovial Glucose Synovial Total Protein Synovial LDH Nasal Screen MRSA (PCR) Random Vancomycin Phenytoin 05/30/18 05/30/18 05/30/18 03:24 03:47 03:47 WBC 26.2 H RBC 3.77 L Hgb 12.3 L Hct 38.6 MCV 102.4 H MCH 32.6 MCHC 31.9 RDW 13.9 Plt Count 80 L MPV 10.5 Seg Neutrophils % 86.0 Lymphocytes % 10.0 Monocytes % 4.0 Neutrophils # 22.5 H Lymphocytes # 2.6 Monocytes # 1.1 Platelet Estimate Slight Decrease L PT INR Sodium 138 Potassium 3.6 Chloride 95 L Carbon Dioxide 24 BUN 50 H Creatinine 6.19 H Est GFR ( Amer) 12 L Est GFR (Non-Af Amer) 10 L BUN/Creatinine Ratio 8 Glucose 75 POC Glucose 63 L Calculated Osmolality 298 Calcium 7.2 L Total Bilirubin Direct Bilirubin Indirect Bilirubin AST ALT Alkaline Phosphatase Serum Total Protein Albumin Globulin Albumin/Globulin Ratio Fl Pathologist Review Synovial Source Synovial Color Synovial Appearance Synovial Volume Synovial RBC Synovial Tot Nuc Cell Synovial Band Neuts Synovial Basophils Synovial Eosinophils Synovial Seg Neuts % Synovial Lymphocytes % Synovial Monocytes % Synovial Other Cells % Synovial Crystals Synovial Glucose Synovial Total Protein Synovial LDH Nasal Screen MRSA (PCR) Random Vancomycin Phenytoin 05/30/18 05/30/18 05/30/18 03:47 06:10 07:32 WBC RBC Hgb Hct MCV MCH MCHC RDW Plt Count MPV Seg Neutrophils % Lymphocytes % Monocytes % Neutrophils # Lymphocytes # Monocytes # Platelet Estimate PT INR Sodium Potassium Chloride Carbon Dioxide BUN Creatinine Est GFR ( Amer) Est GFR (Non-Af Amer) BUN/Creatinine Ratio Glucose POC Glucose 62 L 60 L Calculated Osmolality Calcium Total Bilirubin Direct Bilirubin Indirect Bilirubin AST ALT Alkaline Phosphatase Serum Total Protein Albumin Globulin Albumin/Globulin Ratio Fl Pathologist Review Synovial Source Synovial Color Synovial Appearance Synovial Volume Synovial RBC Synovial Tot Nuc Cell Synovial Band Neuts Synovial Basophils Synovial Eosinophils Synovial Seg Neuts % Synovial Lymphocytes % Synovial Monocytes % Synovial Other Cells % Synovial Crystals Synovial Glucose Synovial Total Protein Synovial LDH Nasal Screen MRSA (PCR) Random Vancomycin 29 Phenytoin 05/30/18 09:28 WBC RBC Hgb Hct MCV MCH MCHC RDW Plt Count MPV Seg Neutrophils % Lymphocytes % Monocytes % Neutrophils # Lymphocytes # Monocytes # Platelet Estimate PT INR Sodium Potassium Chloride Carbon Dioxide BUN Creatinine Est GFR ( Amer) Est GFR (Non-Af Amer) BUN/Creatinine Ratio Glucose POC Glucose 94 Calculated Osmolality Calcium Total Bilirubin Direct Bilirubin Indirect Bilirubin AST ALT Alkaline Phosphatase Serum Total Protein Albumin Globulin Albumin/Globulin Ratio Fl Pathologist Review Synovial Source Synovial Color Synovial Appearance Synovial Volume Synovial RBC Synovial Tot Nuc Cell Synovial Band Neuts Synovial Basophils Synovial Eosinophils Synovial Seg Neuts % Synovial Lymphocytes % Synovial Monocytes % Synovial Other Cells % Synovial Crystals Synovial Glucose Synovial Total Protein Synovial LDH Nasal Screen MRSA (PCR) Random Vancomycin Phenytoin Cultures: Cultures 05/29/18 17:00 Body Fluid Culture - Preliminary Synovial Fluid 05/28/18 17:02 Blood Culture - Preliminary Peripheral Venipuncture Culture is incubating and being continuously monitored for growth. Final report to follow. 05/28/18 17:07 Blood Culture - Preliminary Peripheral Venipuncture Culture is incubating and being continuously monitored for growth. Final report to follow. 05/27/18 18:43 Blood Culture - Preliminary Peripheral Venipuncture Culture is incubating and being continuously monitored for growth. Final report to follow. 05/27/18 18:43 Blood Culture - Preliminary Peripheral Venipuncture Culture is incubating and being continuously monitored for growth. Final report to follow. Serology 05/29/18 05/29/18 05/29/18 Range/Units 21:27 17:00 17:00 Fl Pathologist Review Synovial Source LEFT HIP EFFUSION Synovial Color Straw (Straw) Synovial Appearance Hazy (Clear-Hazy) Synovial Volume 13.0 mL Synovial RBC 0.002 (0.000 - 0.002) M/mcl Synovial Tot Nuc Cell 984 H (0-200) TNC/mcL Synovial Band Neuts Test Not Performed Synovial Basophils Test Not Performed Synovial Eosinophils Test Not Performed Synovial Seg Neuts % 99.0 % Synovial Lymphocytes % 1.0 % Synovial Monocytes % Test Not Performed Synovial Other Cells % Test Not Performed Synovial Crystals No Crystals Seen (None Seen) Synovial Glucose 79 (No Ref Range) mg/dL Synovial Total Protein 3.9 (No Ref Range) g/dL Synovial LDH 137 (No Ref Range) Units/L Nasal Screen MRSA (PCR) Positive A (Negative) Stl C. cayetanensis PCR (Not detect) Stool Rotavirus A PCR (Not detect) Stl Adenov F 40/41 PCR (Not detect) Stool Astrovirus (PCR) (Not detect) Stool Campylobacter PCR (Not detect) Stl C. diff Tox A/B PCR (Not detect) Stool Cryptosporidium PCR (Not detect) Stl Sh Tox Pr E STEC PCR (Not detect) Stool E coli O157 PCR (Not detect) Stl Enterotoxigenic E PCR (Not detect) Stool EPEC (PCR) (Not detect) Stool EAEC (PCR) (Not detect) Stl E. histolytica PCR (Not detect) Stool Giardia Lamblia PCR (Not detect) Stool Salmonella PCR (Not detect) Stool Sapovirus (PCR) (Not detect) Stl P. shigelloides PCR (Not detect) Stl Shigella/EIEC PCR (Not detect) St Y.enterocolitica PCR (Not detect) Stool Vibrio (PCR) (Not detect) Stl Vibrio cholerae PCR (Not detect) Stl Norovirus GI/GII PCR (Not detect) Stl GI Panel (PCR) Com Chlamy pneumoniae PCR (Not Detect) Adenovirus (PCR) (Not Detect) B. pertussis DNA (PCR) (Not Detect) B.parapertussis DNA PCR (Not Detect) Coronavirus OC43 (PCR) (Not Detect) Coronavirus HKU1 (PCR) (Not Detect) Coronavirus 229E (PCR) (Not Detect) Coronavirus NL63 (PCR) (Not Detect) Hep Bs Antigen (Nonreactive) Hep Bs Antibody mIU/mL Human Metapneumovir PCR (Not Detect) Influenza A (H1) PCR (Not Detect) Influ A (H1N1/09) PCR (Not Detect) Influenza A (H3) PCR (Not Detect) Influenza A Untype (PCR) (Not Detect) Influenza Type B (PCR) (Not Detect) M.pneumoniae DNA (PCR) (Not Detect) Parainfluenza 1 (PCR) (Not Detect) Parainfluenza 2 (PCR) (Not Detect) Parainfluenza 3 (PCR) (Not Detect) Parainfluenza 4 (PCR) (Not Detect) RSV (PCR) (Not Detect) Entero/Rhino (PCR) (Not Detect) 05/29/18 05/29/18 05/28/18 Range/Units 17:00 03:34 21:30 Fl Pathologist Review See below Synovial Source Synovial Color (Straw) Synovial Appearance (Clear-Hazy) Synovial Volume mL Synovial RBC (0.000 - 0.002) M/mcl Synovial Tot Nuc Cell (0-200) TNC/mcL Synovial Band Neuts Synovial Basophils Synovial Eosinophils Synovial Seg Neuts % % Synovial Lymphocytes % % Synovial Monocytes % Synovial Other Cells % Synovial Crystals (None Seen) Synovial Glucose (No Ref Range) mg/dL Synovial Total Protein (No Ref Range) g/dL Synovial LDH (No Ref Range) Units/L Nasal Screen MRSA (PCR) (Negative) Stl C. cayetanensis PCR Not detected (Not detect) Stool Rotavirus A PCR Not detected (Not detect) Stl Adenov F 40/41 PCR Not detected (Not detect) Stool Astrovirus (PCR) Not detected (Not detect) Stool Campylobacter PCR Not detected (Not detect) Stl C. diff Tox A/B PCR Not detected (Not detect) Stool Cryptosporidium PCR Not detected (Not detect) Stl Sh Tox Pr E STEC PCR Not detected (Not detect) Stool E coli O157 PCR Not detected (Not detect) Stl Enterotoxigenic E PCR Not detected (Not detect) Stool EPEC (PCR) Not detected (Not detect) Stool EAEC (PCR) Not detected (Not detect) Stl E. histolytica PCR Not detected (Not detect) Stool Giardia Lamblia PCR Not detected (Not detect) Stool Salmonella PCR Not detected (Not detect) Stool Sapovirus (PCR) Not detected (Not detect) Stl P. shigelloides PCR Not detected (Not detect) Stl Shigella/EIEC PCR Not detected (Not detect) St Y.enterocolitica PCR Not detected (Not detect) Stool Vibrio (PCR) Not detected (Not detect) Stl Vibrio cholerae PCR Not detected (Not detect) Stl Norovirus GI/GII PCR Not detected (Not detect) Stl GI Panel (PCR) Com See below Chlamy pneumoniae PCR Not Detected (Not Detect) Adenovirus (PCR) Not Detected (Not Detect) B. pertussis DNA (PCR) Not Detected (Not Detect) B.parapertussis DNA PCR Not Detected (Not Detect) Coronavirus OC43 (PCR) Not Detected (Not Detect) Coronavirus HKU1 (PCR) Not Detected (Not Detect) Coronavirus 229E (PCR) Not Detected (Not Detect) Coronavirus NL63 (PCR) Not Detected (Not Detect) Hep Bs Antigen (Nonreactive) Hep Bs Antibody mIU/mL Human Metapneumovir PCR Not Detected (Not Detect) Influenza A (H1) PCR Not Detected (Not Detect) Influ A (H1N1/09) PCR Not Detected (Not Detect) Influenza A (H3) PCR Not Detected (Not Detect) Influenza A Untype (PCR) Not Detected (Not Detect) Influenza Type B (PCR) Not Detected (Not Detect) M.pneumoniae DNA (PCR) Not Detected (Not Detect) Parainfluenza 1 (PCR) Not Detected (Not Detect) Parainfluenza 2 (PCR) Not Detected (Not Detect) Parainfluenza 3 (PCR) Not Detected (Not Detect) Parainfluenza 4 (PCR) Not Detected (Not Detect) RSV (PCR) Not Detected (Not Detect) Entero/Rhino (PCR) DETECTED A (Not Detect) 05/28/18 Range/Units 07:04 Fl Pathologist Review Synovial Source Synovial Color (Straw) Synovial Appearance (Clear-Hazy) Synovial Volume mL Synovial RBC (0.000 - 0.002) M/mcl Synovial Tot Nuc Cell (0-200) TNC/mcL Synovial Band Neuts Synovial Basophils Synovial Eosinophils Synovial Seg Neuts % % Synovial Lymphocytes % % Synovial Monocytes % Synovial Other Cells % Synovial Crystals (None Seen) Synovial Glucose (No Ref Range) mg/dL Synovial Total Protein (No Ref Range) g/dL Synovial LDH (No Ref Range) Units/L Nasal Screen MRSA (PCR) (Negative) Stl C. cayetanensis PCR (Not detect) Stool Rotavirus A PCR (Not detect) Stl Adenov F 40/41 PCR (Not detect) Stool Astrovirus (PCR) (Not detect) Stool Campylobacter PCR (Not detect) Stl C. diff Tox A/B PCR (Not detect) Stool Cryptosporidium PCR (Not detect) Stl Sh Tox Pr E STEC PCR (Not detect) Stool E coli O157 PCR (Not detect) Stl Enterotoxigenic E PCR (Not detect) Stool EPEC (PCR) (Not detect) Stool EAEC (PCR) (Not detect) Stl E. histolytica PCR (Not detect) Stool Giardia Lamblia PCR (Not detect) Stool Salmonella PCR (Not detect) Stool Sapovirus (PCR) (Not detect) Stl P. shigelloides PCR (Not detect) Stl Shigella/EIEC PCR (Not detect) St Y.enterocolitica PCR (Not detect) Stool Vibrio (PCR) (Not detect) Stl Vibrio cholerae PCR (Not detect) Stl Norovirus GI/GII PCR (Not detect) Stl GI Panel (PCR) Com Chlamy pneumoniae PCR (Not Detect) Adenovirus (PCR) (Not Detect) B. pertussis DNA (PCR) (Not Detect) B.parapertussis DNA PCR (Not Detect) Coronavirus OC43 (PCR) (Not Detect) Coronavirus HKU1 (PCR) (Not Detect) Coronavirus 229E (PCR) (Not Detect) Coronavirus NL63 (PCR) (Not Detect) Hep Bs Antigen Nonreactive (Nonreactive) Hep Bs Antibody 13.16 mIU/mL Human Metapneumovir PCR (Not Detect) Influenza A (H1) PCR (Not Detect) Influ A (H1N1/09) PCR (Not Detect) Influenza A (H3) PCR (Not Detect) Influenza A Untype (PCR) (Not Detect) Influenza Type B (PCR) (Not Detect) M.pneumoniae DNA (PCR) (Not Detect) Parainfluenza 1 (PCR) (Not Detect) Parainfluenza 2 (PCR) (Not Detect) Parainfluenza 3 (PCR) (Not Detect) Parainfluenza 4 (PCR) (Not Detect) RSV (PCR) (Not Detect) Entero/Rhino (PCR) (Not Detect) - Impressions Impressions Chest X-Ray 05/28/18 16:24 IMPRESSION: Stable examination. No significant change in right upper lobe pneumonia. D/ /28/2018 16:54:46 Rodolfo Benitez MD / maddy Interpreting Provider: Rodolfo Benitez MD Abdomen/Pelvis CT 05/28/18 16:25 IMPRESSION: 1. Although not well seen on this noncontrast CT, there is a hyperdensity in the gallbladder lumen which may represent a stone and suggestion of gallbladder wall thickening. If patient has right upper quadrant abdominal pain, recommend dedicated right upper quadrant ultrasound for further evaluation. 2. [place] renal atrophy. 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 3. Fluid in the rectum in keeping with clinical history of diarrhea. 4. Bilateral hip dysplasia with large left joint effusion and multiple loose bodies, measuring up to 3.8 cm in size. 5. Grade 2 anterolisthesis of L5 on S1 due to bilateral L5 pars defects. This can be a cause of chronic low back pain in some patients. D/ : / 05/28/2018 18:42:51 Sincere Yepez MD / brian Interpreting Provider: Sincere eYpez MD Abdomen Ultrasound 05/29/18 00:00 IMPRESSION: Diffuse gallbladder wall thickening without sonographic Hoffman's sign. No evidence of cholelithiasis. Gallbladder polyps measuring up to 6 mm. No follow-up imaging is indicated. D/ / Benoit Cortes MD / Benoit Cortes MD Interpreting Provider: Benoit Cortes MD Joint Aspiration/Injection 05/29/18 12:08 IMPRESSION: Susceptible left hip aspiration. D/ / 05/30/2018 09:38:48 Luis Jarrett MD / ericarttomas Interpreting Provider: Luis Jarrett MD Exam - Constitutional Vitals: Temp Pulse Resp BP Pulse Ox 97.6 F 83 16 153/93 99 05/30/18 10:30 05/30/18 10:00 05/30/18 10:30 05/30/18 11:30 05/30/18 10:00 Exam: Gen.: Vitals noted. No acute distress. AAOx2. Resting comfortably in bed, nonseptic appearing HEENT: PERRL/EOMI, oropharynx clear, Normocephalic, atraumatic, MMM Neck: No lymphadenopathy or meningeal signs Cardiac: RRR, no murmur, +S1/S2. Pulmonary: CTA bilaterally, no wheezes, rales or rhonchi, equal chest expansion Abdomen: soft, nontender, BS noted, no guarding, no rebound. MSK: no joint swelling noted Extremities: no BLE edema, nontender calf, no cyanosis or clubbing Neuro: A&Ox2, moves all extremities, no focal deficits Psych: Appropriate mood and behavior Consult Discharge Plan - Plan Referrals: Lupe Mcdonnell, [employer] SPECIALIST [Primary Care Provider] - - Attending Attestation I examined this patient and my medical decision-making was reviewed with the Resident Physician. I agree with the documented findings, disposition and treatment plan as described except to the extent set forth below.
--- NOTE | 2018-05-30 15:45 | Internal Med Progress Note ---
Hospitalist Progress Note - Encounter Date of Encounter: 05/30/18 Time of Encounter: 15:45 - Subjective Interval History: Pt appears to be clinically improving today. He denies N/V, abdominal pain. He denies fever or chills. Denies CP or SOB. He was alert and oriented times 3 but overall poor historian. - Exam Vitals: Temp Pulse Resp BP Pulse Ox 97.7 F 90 18 143/105 99 05/30/18 13:50 05/30/18 12:00 05/30/18 13:50 05/30/18 13:50 05/30/18 12:00 Exam: Exam: General: Alert and oriented 3; lying in bed in no acute distress HEENT:EOM, pupils equal, round and reactive. Cardiovascular:Normal S1 & S2, tachycardia; no rubs, murmurs or gallops. No JVD. Pulse regular. Lungs: Diffuse rhonchi appreciated in the right posterior thorax. Abdomen:Soft, non-tender, no rigidity. Extremities:No deformity, no edema or tenderness, no joint swelling or clubbing. Neurological:Normal cognition and motor skills. Pulses:Carotid and radial pulses normal +2. Skin:Normal color, no rash, no lesions. - Assessment and Plan (1) Sepsis Current Visit: Yes Status: Acute Assessment and Plan: Patient presents with fever, elevated white blood cell count and tachycardia in the 140s in the setting of right upper lobe consolidation consistent with sepsis. WBC up today from 11.0 yesterday 05/28/2018. Heart rate still elevated. EKG 12 lead . He as nauseous and vomiting during HD 05/28/2018.HE then developed diarrhea. Lactic acid on admission was 1.5. Given the patient's end-stage renal disease the 30 mL/kg fluid bolus was not given. He did receive 250 mL boluses 2 and about another liter of NS. Discussed with nephrology who states to avoid scheduled fluids for now. fluid support per nephrology recommendation. Continue with Zosyn, and Vancomycin. Consulted ID and will follow antibiotic recommendations. Concerned pt may have multiple sources of infection. Lipase 17t. Non-contrast abdominal CT showing GB wall thickening and gall stone. Abdominal ultrasound shows gall stones and gall bladder wall thickening but normal liver. resp panel + for rhino/entero virus MRSA nasal swab + Chest x ray and CT showing RUL PNA Following-up blood cultures, legionella, strep, and mycoplasma results. ID Consulting. Claus transfer to tele from 2N/ICU over flow as pt is more stable. (2) HCAP (healthcare-associated pneumonia) Current Visit: Yes Status: Acute Assessment and Plan: 1 week history of productive cough associated with fever and shortness of br eath. Fever, cough, leukocytosis and findings of a Right upper lobe consolidation in a patient with end-stage renal disease on hemodialysis. Patient started on broad-spectrum antibiotics for coverage for healthcare associated pneumonia. Continue antibiotics per nephrology. Blood culture, Legionella, strep urine and resp panel results pending. (3) End stage renal disease Current Visit: Yes Status: Chronic Assessment and Plan: End-stage renal disease on dialysis Monday. Nephrology consulting and continued on scheduled HD (4) Hypoglycemia Current Visit: Yes Status: Acute Assessment and Plan: Etiology unclear. Monitoring glucose Q 30 minutes and replacing with prn dextrose and alternating with glucagon for now. Per Dr. 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 Concern for adrenal insufficiency. Other differential includes Nonislet cell tumor hypoglycemia vs other. Will do trial of prednisone starting tomorrow after sim test. Will check cortisol level now and ACTH sim test. (5) Encephalopathy acute Current Visit: Yes Status: Acute Assessment and Plan: Metabolic encephalopathy. Likely due to acute illness. Will continue to monitor closely on telemetry. (6) Leukocytosis Current Visit: Yes Status: Acute Assessment and Plan: Pt's WBC up to 26.2 05/30/2018. Blood cultures in progress.On appropriate meds for PNA. Entero/rhino +, MRSA nasal +, Left hip joint aspirated and fluid sent for analysis. CT abd showing gall stones and gall bladder wall thickening and Abd US showing the same Legionella and strep ordered but not sent yet ID on board. Continue antibiotics per ID. Will continue to monitor. DVT Prophylaxis: SCD - Summary of Assessment and Plan Summary of Assessment and Plan: History of present illness: Dr. Ryan Patient was seen and examined on 05/27/2018 Mr. Herrera is a 42 year old male with a past medical history of end-stage renal disease on hemodialysis and hypertension who presented to the ED due to a 1 week history of productive cough and shortness of breath. Patient reports symptoms of an ongoing for the past week. He noted a subjective fever earlier today. Reports productive cough. On arrival was found to be in sinus tachycardia with a heart rate in the 140s with an elevated white blood cell count of 12. Given the patient's end-stage renal disease the 30 mL/kg fluid bolus was not given. He did receive 250 mL boluses 2. Patient's heart rate and tachycardia improved during the ED course. Patient was started on broad-spectrum antibiotics including bank, cefepime and azithromycin. Patient's chest x-ray is concerning for a right upper lobe infiltrate. A CT scan was followed up to further evaluate x-ray findings which did confirm a right upper lobe consolidation concerning for pneumonia. Patient is anuric and thus cannot produce any urine. Urine Legionella and strep were not ordered in the ED. ED provider discussed case with nephrology who will follow the patient on the inpatient service for HD. - Time Spent with Patient Total time spent is greater than 50% in coordination of care (as documented) at patient's floor/unit and/or counseling patient: less than 15 minutes Plan of Care Discussed with: patient Internal Medicine: Result - Labs CBC & Chem 7: 05/30/18 03:47 05/30/18 03:47 Labs: Short CBC 05/30/18 Range/Units 03:47 WBC 26.2 H (4.3-11.1) K/mcL Hgb 12.3 L (12.9-16.9) g/dL Hct 38.6 (37.5-50.1) % Plt Count 80 L (140-400) K/mcL Neutrophils # 22.5 H (1.6-8.9) K/mcL BMP 05/30/18 03:47 Sodium 138 Potassium 3.6 Chloride 95 L Carbon Dioxide 24 BUN 50 H Creatinine 6.19 H Glucose 75 Calcium 7.2 L - ABG Interpretation ABG results: ABG ABG pH 7.53 pH Units (7.32-7.45) H 05/28/18 17:44 ABG pCO2 37 mmHg (35-45) 05/28/18 17:44 ABG pO2 97 mmHg (85-104) 05/28/18 17:44 ABG O2 Saturation 98 % (95-98) 05/28/18 17:44 PT/INR, D-dimer PT 21.1 Seconds (9.4-12.1) H 05/29/18 12:34 - Impressions Impressions Chest X-Ray 05/28/18 16:24 IMPRESSION: Stable examination. No significant change in right upper lobe pneumonia. D/ : / 05/28/2018 16:54:46 Rodolfo Benitez MD / maddy Interpreting Provider: Rodolfo Benitez MD Abdomen/Pelvis CT 05/28/18 16:25 IMPRESSION: 1. Although not well seen on this noncontrast CT, there is a hyperdensity in the gallbladder lumen which may represent a stone and suggestion of gallbladder wall thickening. If patient has right upper quadrant abdominal pain, recommend dedicated right upper quadrant ultrasound for further evaluation. 2. [place] renal atrophy. 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 3. Fluid in the rectum in keeping with clinical history of diarrhea. 4. Bilateral hip dysplasia with large left joint effusion and multiple loose bodies, measuring up to 3.8 cm in size. 5. Grade 2 anterolisthesis of L5 on S1 due to bilateral L5 pars defects. This can be a cause of chronic low back pain in some patients. D/ : / 05/28/2018 18:42:51 Sincere Yepez MD / brian Interpreting Provider: Sincere Yepez MD Abdomen Ultrasound 05/29/18 00:00 IMPRESSION: Diffuse gallbladder wall thickening without sonographic Hoffman's sign. No evidence of cholelithiasis. Gallbladder polyps measuring up to 6 mm. No follow-up imaging is indicated. D/ / Benoit Cortes MD / Benoit Cortes MD Interpreting Provider: Benoit Cortes MD Joint Aspiration/Injection 05/29/18 12:08 IMPRESSION: Susceptible left hip aspiration. D/ / 05/30/2018 09:38:48 Luis Jarrett MD / yessi Interpreting Provider: Luis Jarrett MD Consult Discharge Plan - Plan Referrals: Lupe Mcdonnell CNP [Primary Care Provider] - (1) Sepsis Qualifiers: Sepsis type: sepsis due to unspecified organism Qualified Code(s): A41.9 - Sepsis, unspecified organism
[2018-05-30] MEDS ORDERED: LEVOFLOXACIN 500 MG/100 ML MLS IVPB SCH (18:00)
[2018-05-31 04:44] LABS: Basophils # 0.1 K/mcL (0.0-0.2); Basophils % 0.5 %; Eosinophils # 0.2 K/mcL (0.0-0.6); Eosinophils % 1.8 %; Immature Granulocytes % 0.7 % (0-4); Lymphocytes # 1.7 K/mcL (0.6-4.6); Lymphocytes % 13.1 %; Mean Corpuscular HGB Conc 32.5 g/dL (31.6-35.5); Mean Corpuscular Hemoglobin 32.2 pg (28.0-33.3); Mean Platelet Volume 10.3 fL (9.4-12.4); Monocytes # 1.2 K/mcL (0.0-1.3); Monocytes % 9.1 %; Neutrophils # 9.4 K/mcL (1.6-8.9); Platelet Count 106 K/mcL (140-400); Red Blood Count 4.04 M/mcL (4.19-5.50); Red Cell Distribution Width 13.4 % (11.5-14.5); Segmented Neutrophils % 74.8 %
[2018-05-31 05:05] LABS: Calcium 7.4 mg/dL (8.6-10.3); Potassium 3.1 mEq/L (3.5-5.1)
[2018-05-31] MEDS: Piperacillin/Tazobactam 3.375 GM in 0.9 % Sodium Chloride Mini Bag 100 ML IVPB SCH ×2 (06:33→18:23)
--- NOTE | 2018-05-31 08:58 | Nephrology Progress Note ---
Addendum entered and electronically signed by Alf Floyd DO 05/31/18 17:01: I have personally performed a face to face evaluation on this patient. I have reviewed and agree with the care plan. History and Exam by me shows: ESRD and next HD planned for tomorrow. Also noted to have hypokalemia: perhaps from the clearance after dialysis from yesterday. I ordered KCl 40mEq po x1 earlier this AM. Original Note: Date of Encounter: 05/31/18 Time of Encounter: 08:54 - Assessment and Plan (1) ESRD (end stage renal disease) on dialysis Current Visit: Yes Status: Acute Current regimen is MWF at [facility]. HD completed yesterday. Plan for HD tomorrow. Strict I/O Avoid nephrotoxins and renal dose. (2) Cough Current Visit: Yes Status: Acute Per primary. (3) Hypoglycemia Current Visit: Yes Status: Acute Appears resolved. Target glucose 140-180. (4) HCAP (healthcare-associated pneumonia) Current Visit: Yes Status: Acute Per ID, appreciate recommendations. (5) Sepsis Current Visit: Yes Status: Acute Per ID, appreciate recommendations. Is on Iso for + RhinoVirus and + MRSA swab. Qualifiers: Sepsis type: sepsis due to unspecified organism Qualified Code(s): A41.9 - Sepsis, unspecified organism Subjective Principal diagnosis: elevated BP Interval history: Pt seen and evaluated, is doing well, resting comfortably. No emesis noted in I/O. Denies shortness of breath or chest pain. Objective - Vital Signs Vital signs: Vital Signs Temp Pulse Resp BP Pulse Ox 05/31/18 06:58 98.5 F 99 16 130/87 93 05/31/18 03:49 98.5 F 88 17 168/93 99 05/30/18 23:16 98.2 F 92 17 127/90 99 05/30/18 19:03 97.7 F 97 17 128/87 99 05/30/18 15:53 97.7 F 92 16 141/97 99 05/30/18 13:50 97.7 F 18 143/105 05/30/18 13:30 134/95 05/30/18 13:15 134/93 05/30/18 13:00 137/101 05/30/18 12:45 150/105 05/30/18 12:30 133/90 05/30/18 12:15 147/93 05/30/18 12:00 97.6 F 90 16 153/93 99 05/30/18 11:45 154/97 05/30/18 11:30 153/93 05/30/18 11:15 150/96 05/30/18 11:00 149/98 05/30/18 10:45 145/107 05/30/18 10:30 97.6 F 16 163/93 05/30/18 10:00 83 14 147/104 99 Intake and Output 05/30/18 05/31/18 05/31/18 23:59 07:59 15:59 Intake Total 100 / 100 360 / 360 Balance 100 / 100 360 / 360 Intake: IV Fluids 100 / 100 Zosyn 3.375 GM In 0.9 % Sodium 100 / 100 Chloride (Mini-Bag +) 100 ML @ 25 mls/hr IVPB Q12HR KARUNA Rx#: [id number] Oral 360 / 360 Other: Meal Breakfast Stool Size Small Stool Consistency loose Stool Color Green # Bowel Movements 1 Weight 47.1 kg Blood Glucose* 117 104 130 - General Appearance General appearance: Present: well-developed, well-nourished EENT: Present: ATNC, hearing intact, vision intact Neck: Present: supple Respiratory: Present: clear Cardiology: Present: no edema, normal S1, normal S2 Dialysis Vascular Access: Arteriovenous Fistula thrill: Yes bruit: Yes Gastrointestinal: Present: normoactive bowel sounds, no tenderness, no guarding Integumentary: Present: no rash, warm and dry Neurologic: Present: alert and oriented x3 Psychiatric: Present: mood/affect appropriate, cooperative - Lab 05/31/18 04:30 05/31/18 04:30 Most recent lab results ABG pH 7.53 pH Units (7.32-7.45) H 05/28/18 17:44 ABG pCO2 37 mmHg (35-45) 05/28/18 17:44 ABG pO2 97 mmHg (85-104) 05/28/18 17:44 ABG HCO3 31 mEq/L (21-27) H 05/28/18 17:44 ABG O2 Saturation 98 % (95-98) 05/28/18 17:44 Calcium 7.4 mg/dL (8.6-10.3) L 05/31/18 04:30 Phosphorus 2.5 mg/dL (2.7-4.5) L 05/28/18 04:38 Magnesium 1.8 mg/dL (1.6-2.6) 05/28/18 04:38 Consult Discharge Plan - Plan Referrals: Lupe Mcdonnell, DENISE [Primary Care Provider] -
[2018-05-31] MEDS ORDERED: predniSONE 10 MG TABLET PO SCH (09:00)
--- NOTE | 2018-05-31 11:37 | Infectious Disease Progress No ---
Date of Encounter: 05/31/18 Time of Encounter: 10:00 - Assessment and Plan (1) Sepsis Current Visit: Yes Status: Acute - On presentation met 4/4 SIRS criteria with Fever of 101.8, HR 145, RR 20, WBC 12.0 - Lactic acid wnl at 1.5 - Signs of end organ damage with metabolic encephalopathy - Probable source: Pulmonary- PNA - Causative organism: unclear - No longer meeting sepsis criteria with normal vitals. Afebrile since 05/28 leukocytosis greatly improved from 26.2 to 12.6 - Mild elevation in LFTs of unclear etiology but possibly related to sepsis. AST 46, ALk 150 - Also noted to be hypoglycemic which could be related to acute illness. Improved - RIP positive for rhinovirus - GI panel negative - Hip aspiration shows only 984 nucleated cells. Unlikely source of infection - Strep pneumo Ag and Legionella Ag have been ordered however patient does not make urine. - MRSA swab positive - ROS difficult to determine as patient is altered. Unclear baseline, no complaints at this time Physical exam shows some diminished breath sounds, otherwise unimpressive - Blood cultures 05/27 x2 NG - Blood cultures 05/28 x 2 NG - Sputum culture obtained 05/30 shows many epithelial cells and thus was not cultured - CXR on admission as well as CT chest 05/28 show significant RUL consolidation which likely represents PNA - CT abd/pelvis on 05/28 shows questionable cholecystitis and hip dysplasia, however in the absence of symptoms this is less likely the source of infection - RUQ US shows diffuse gallbladder thickening with a negative sonographic Hoffman sign. No evidence of cholelithiasis as well as a 6 mm polyp. ABx thus far: Given one dose of Azithromycin and cefepime Current regimen of Levaquin (day 3), Zosyn (day4), Vancomycin (day 5) Plan -- Clinically I do feel as if he is improving and stable. We will attempt to de-escalate antibiotics today - Suspect that this is mostly due to pneumonia with positive rhinovirus and consolidation on CT. - Peripheral smear pending. - Patient is immunocompromised due to ESRD - Recommending continuing Zosyn, vancomycin (day 5 of abx) -- When ready for discahrge, recommend augmentin and doxycyline for a total of 14 days, through 06/10/18 Qualifiers: Sepsis type: sepsis due to unspecified organism Qualified Code(s): A41.9 - Sepsis, unspecified organism (2) Nausea & vomiting Current Visit: Yes Status: Acute - as above for sepsis - possible aspiration events Qualifiers: Vomiting type: unspecified Vomiting Intractability: intractable Qualified Code(s): R11.2 - Nausea with vomiting, unspecified (3) Encephalopathy acute Current Visit: Yes Status: Resolved - Likely secondary to sepsis as above - Also less likely is encephalitis, uremia, hepatic - Management of underlying conditions as above. -- Appears to be resolved, unclear baseline, no family present at bedside (4) HCAP (healthcare-associated pneumonia) Current Visit: Yes Status: Acute As above for sepsis (5) End stage renal disease Current Visit: Yes Status: Chronic Secondary to unknown congenital disease - MWF dialysis at home - Management per nephro and primary team - Renally dose medications - Subjective Interval history: Patient was seen and examined at bedside. He states overall he is feeling well with no current complaints. He denies any further episode of emesis or nausea. He states he has not had any fevers, chills, cough, shortness of breath, pain. He has no overnight events. No family at bedside. Infect Dis PN-Objective Data - Labs CBC & Chem 7: 05/31/18 04:30 05/31/18 04:30 Labs: Laboratory Results - last 24 hr 05/30/18 05/30/18 05/30/18 15:33 16:39 17:29 WBC RBC Hgb Hct MCV MCH MCHC RDW Plt Count MPV Immature Gran % Seg Neutrophils % Lymphocytes % Monocytes % Eosinophils % Basophils % Neutrophils # Lymphocytes # Monocytes # Eosinophils # Basophils # Sodium Potassium Chloride Carbon Dioxide BUN Creatinine Est GFR ( Amer) Est GFR (Non-Af Amer) BUN/Creatinine Ratio Glucose POC Glucose 60 L 97 119 H Calculated Osmolality Calcium Stool Occult Blood 05/30/18 05/30/18 05/30/18 17:40 19:00 23:14 WBC RBC Hgb Hct MCV MCH MCHC RDW Plt Count MPV Immature Gran % Seg Neutrophils % Lymphocytes % Monocytes % Eosinophils % Basophils % Neutrophils # Lymphocytes # Monocytes # Eosinophils # Basophils # Sodium Potassium Chloride Carbon Dioxide BUN Creatinine Est GFR ( Amer) Est GFR (Non-Af Amer) BUN/Creatinine Ratio Glucose POC Glucose 313 H 117 H Calculated Osmolality Calcium Stool Occult Blood Negative 05/31/18 05/31/1818 01:22 03:54 04:30 WBC 12.6 H D RBC 4.04 L Hgb 13.0 Hct 40.0 MCV 99.0 MCH 32.2 MCHC 32.5 RDW 13.4 Plt Count 106 L MPV 10.3 Immature Gran % 0.7 Seg Neutrophils % 74.8 Lymphocytes % 13.1 Monocytes % 9.1 Eosinophils % 1.8 Basophils % 0.5 Neutrophils # 9.4 H Lymphocytes # 1.7 Monocytes # 1.2 Eosinophils # 0.2 Basophils # 0.1 Sodium Potassium Chloride Carbon Dioxide BUN Creatinine Est GFR ( Amer) Est GFR (Non-Af Amer) BUN/Creatinine Ratio Glucose POC Glucose 99 108 H Calculated Osmolality Calcium Stool Occult Blood 05/31/18 05/31/18 05/31/18 04:30 05:04 06:23 WBC RBC Hgb Hct MCV MCH MCHC RDW Plt Count MPV Immature Gran % Seg Neutrophils % Lymphocytes % Monocytes % Eosinophils % Basophils % Neutrophils # Lymphocytes # Monocytes # Eosinophils # Basophils # Sodium 133 L Potassium 3.1 L Chloride 90 L Carbon Dioxide 29 BUN 40 H Creatinine 3.72 H Est GFR ( Amer) 22 L Est GFR (Non-Af Amer) 18 L BUN/Creatinine Ratio 11 Glucose 125 H POC Glucose 115 H 104 H Calculated Osmolality 287 Calcium 7.4 L Stool Occult Blood 05/31/18 08:02 WBC RBC Hgb Hct MCV MCH MCHC RDW Plt Count MPV Immature Gran % Seg Neutrophils % Lymphocytes % Monocytes % Eosinophils % Basophils % Neutrophils # Lymphocytes # Monocytes # Eosinophils # Basophils # Sodium Potassium Chloride Carbon Dioxide BUN Creatinine Est GFR ( Amer) Est GFR (Non-Af Amer) BUN/Creatinine Ratio Glucose POC Glucose 130 H Calculated Osmolality Calcium Stool Occult Blood Cultures: Cultures 05/29/18 17:00 Body Fluid Culture - Preliminary Synovial Fluid 05/31/18 00:30 Sputum Culture - Final Sputum 05/28/18 17:02 Blood Culture - Preliminary Peripheral Venipuncture Culture is incubating and being continuously monitored for growth. Final report to follow. 05/28/18 17:07 Blood Culture - Preliminary Peripheral Venipuncture Culture is incubating and being continuously monitored for growth. Final report to follow. 05/27/18 18:43 Blood Culture - Preliminary Peripheral Venipuncture Culture is incubating and being continuously monitored for growth. Final report to follow. 05/27/18 18:43 Blood Culture - Preliminary Peripheral Venipuncture Culture is incubating and being continuously monitored for growth. Final report to follow. Serology 05/30/18 05/29/18 05/29/18 Range/Units 17:40 21:27 17:00 Fl Pathologist Review Synovial Source Synovial Color (Straw) Synovial Appearance (Clear-Hazy) Synovial Volume mL Synovial RBC (0.000 - 0.002) M/mcl Synovial Tot Nuc Cell (0-200) TNC/mcL Synovial Band Neuts Synovial Basophils Synovial Eosinophils Synovial Seg Neuts % % Synovial Lymphocytes % % Synovial Monocytes % Synovial Other Cells % Synovial Crystals (None Seen) Synovial Glucose 79 (No Ref Range) mg/dL Synovial Total Protein 3.9 (No Ref Range) g/dL Synovial LDH 137 (No Ref Range) Units/L Nasal Screen MRSA (PCR) Positive A (Negative) Stool Occult Blood Negative (Negative) Stl C. cayetanensis PCR (Not detect) Stool Rotavirus A PCR (Not detect) Stl Adenov F 40/41 PCR (Not detect) Stool Astrovirus (PCR) (Not detect) Stool Campylobacter PCR (Not detect) Stl C. diff Tox A/B PCR (Not detect) Stool Cryptosporidium PCR (Not detect) Stl Sh Tox Pr E STEC PCR (Not detect) Stool E coli O157 PCR (Not detect) Stl Enterotoxigenic E PCR (Not detect) Stool EPEC (PCR) (Not detect) Stool EAEC (PCR) (Not detect) Stl E. histolytica PCR (Not detect) Stool Giardia Lamblia PCR (Not detect) Stool Salmonella PCR (Not detect) Stool Sapovirus (PCR) (Not detect) Stl P. shigelloides PCR (Not detect) Stl Shigella/EIEC PCR (Not detect) St Y.enterocolitica PCR (Not detect) Stool Vibrio (PCR) (Not detect) Stl Vibrio cholerae PCR (Not detect) Stl Norovirus GI/GII PCR (Not detect) Stl GI Panel (PCR) Com Chlamy pneumoniae PCR (Not Detect) Adenovirus (PCR) (Not Detect) B. pertussis DNA (PCR) (Not Detect) B.parapertussis DNA PCR (Not Detect) Coronavirus OC43 (PCR) (Not Detect) Coronavirus HKU1 (PCR) (Not Detect) Coronavirus 229E (PCR) (Not Detect) Coronavirus NL63 (PCR) (Not Detect) Hep Bs Antigen (Nonreactive) Hep Bs Antibody mIU/mL Human Metapneumovir PCR (Not Detect) Influenza A (H1) PCR (Not Detect) Influ A (H1N1/09) PCR (Not Detect) Influenza A (H3) PCR (Not Detect) Influenza A Untype (PCR) (Not Detect) Influenza Type B (PCR) (Not Detect) M.pneumoniae DNA (PCR) (Not Detect) Parainfluenza 1 (PCR) (Not Detect) Parainfluenza 2 (PCR) (Not Detect) Parainfluenza 3 (PCR) (Not Detect) Parainfluenza 4 (PCR) (Not Detect) RSV (PCR) (Not Detect) Entero/Rhino (PCR) (Not Detect) 05/29/18 05/29/18 05/29/18 Range/Units 17:00 17:00 03:34 Fl Pathologist Review See below Synovial Source LEFT HIP EFFUSION Synovial Color Straw (Straw) Synovial Appearance Hazy (Clear-Hazy) Synovial Volume 13.0 mL Synovial RBC 0.002 (0.000 - 0.002) M/mcl Synovial Tot Nuc Cell 984 H (0-200) TNC/mcL Synovial Band Neuts Test Not Performed Synovial Basophils Test Not Performed Synovial Eosinophils Test Not Performed Synovial Seg Neuts % 99.0 % Synovial Lymphocytes % 1.0 % Synovial Monocytes % Test Not Performed Synovial Other Cells % Test Not Performed Synovial Crystals No Crystals Seen (None Seen) Synovial Glucose (No Ref Range) mg/dL Synovial Total Protein (No Ref Range) g/dL Synovial LDH (No Ref Range) Units/L Nasal Screen MRSA (PCR) (Negative) Stool Occult Blood (Negative) Stl C. cayetanensis PCR (Not detect) Stool Rotavirus A PCR (Not detect) Stl Adenov F 40/41 PCR (Not detect) Stool Astrovirus (PCR) (Not detect) Stool Campylobacter PCR (Not detect) Stl C. diff Tox A/B PCR (Not detect) Stool Cryptosporidium PCR (Not detect) Stl Sh Tox Pr E STEC PCR (Not detect) Stool E coli O157 PCR (Not detect) Stl Enterotoxigenic E PCR (Not detect) Stool EPEC (PCR) (Not detect) Stool EAEC (PCR) (Not detect) Stl E. histolytica PCR (Not detect) Stool Giardia Lamblia PCR (Not detect) Stool Salmonella PCR (Not detect) Stool Sapovirus (PCR) (Not detect) Stl P. shigelloides PCR (Not detect) Stl Shigella/EIEC PCR (Not detect) St Y.enterocolitica PCR (Not detect) Stool Vibrio (PCR) (Not detect) Stl Vibrio cholerae PCR (Not detect) Stl Norovirus GI/GII PCR (Not detect) Stl GI Panel (PCR) Com Chlamy pneumoniae PCR Not Detected (Not Detect) Adenovirus (PCR) Not Detected (Not Detect) B. pertussis DNA (PCR) Not Detected (Not Detect) B.parapertussis DNA PCR Not Detected (Not Detect) Coronavirus OC43 (PCR) Not Detected (Not Detect) Coronavirus HKU1 (PCR) Not Detected (Not Detect) Coronavirus 229E (PCR) Not Detected (Not Detect) Coronavirus NL63 (PCR) Not Detected (Not Detect) Hep Bs Antigen (Nonreactive) Hep Bs Antibody mIU/mL Human Metapneumovir PCR Not Detected (Not Detect) Influenza A (H1) PCR Not Detected (Not Detect) Influ A (H1N1/09) PCR Not Detected (Not Detect) Influenza A (H3) PCR Not Detected (Not Detect) Influenza A Untype (PCR) Not Detected (Not Detect) Influenza Type B (PCR) Not Detected (Not Detect) M.pneumoniae DNA (PCR) Not Detected (Not Detect) Parainfluenza 1 (PCR) Not Detected (Not Detect) Parainfluenza 2 (PCR) Not Detected (Not Detect) Parainfluenza 3 (PCR) Not Detected (Not Detect) Parainfluenza 4 (PCR) Not Detected (Not Detect) RSV (PCR) Not Detected (Not Detect) Entero/Rhino (PCR) DETECTED A (Not Detect) 05/28/18 05/28/18 Range/Units 21:30 07:04 Fl Pathologist Review Synovial Source Synovial Color (Straw) Synovial Appearance (Clear-Hazy) Synovial Volume mL Synovial RBC (0.000 - 0.002) M/mcl Synovial Tot Nuc Cell (0-200) TNC/mcL Synovial Band Neuts Synovial Basophils Synovial Eosinophils Synovial Seg Neuts % % Synovial Lymphocytes % % Synovial Monocytes % Synovial Other Cells % Synovial Crystals (None Seen) Synovial Glucose (No Ref Range) mg/dL Synovial Total Protein (No Ref Range) g/dL Synovial LDH (No Ref Range) Units/L Nasal Screen MRSA (PCR) (Negative) Stool Occult Blood (Negative) Stl C. cayetanensis PCR Not detected (Not detect) Stool Rotavirus A PCR Not detected (Not detect) Stl Adenov F 40/41 PCR Not detected (Not detect) Stool Astrovirus (PCR) Not detected (Not detect) Stool Campylobacter PCR Not detected (Not detect) Stl C. diff Tox A/B PCR Not detected (Not detect) Stool Cryptosporidium PCR Not detected (Not detect) Stl Sh Tox Pr E STEC PCR Not detected (Not detect) Stool E coli O157 PCR Not detected (Not detect) Stl Enterotoxigenic E PCR Not detected (Not detect) Stool EPEC (PCR) Not detected (Not detect) Stool EAEC (PCR) Not detected (Not detect) Stl E. histolytica PCR Not detected (Not detect) Stool Giardia Lamblia PCR Not detected (Not detect) Stool Salmonella PCR Not detected (Not detect) Stool Sapovirus (PCR) Not detected (Not detect) Stl P. shigelloides PCR Not detected (Not detect) Stl Shigella/EIEC PCR Not detected (Not detect) St Y.enterocolitica PCR Not detected (Not detect) Stool Vibrio (PCR) Not detected (Not detect) Stl Vibrio cholerae PCR Not detected (Not detect) Stl Norovirus GI/GII PCR Not detected (Not detect) Stl GI Panel (PCR) Com See below Chlamy pneumoniae PCR (Not Detect) Adenovirus (PCR) (Not Detect) B. pertussis DNA (PCR) (Not Detect) B.parapertussis DNA PCR (Not Detect) Coronavirus OC43 (PCR) (Not Detect) Coronavirus HKU1 (PCR) (Not Detect) Coronavirus 229E (PCR) (Not Detect) Coronavirus NL63 (PCR) (Not Detect) Hep Bs Antigen Nonreactive (Nonreactive) Hep Bs Antibody 13.16 mIU/mL Human Metapneumovir PCR (Not Detect) Influenza A (H1) PCR (Not Detect) Influ A (H1N1/09) PCR (Not Detect) Influenza A (H3) PCR (Not Detect) Influenza A Untype (PCR) (Not Detect) Influenza Type B (PCR) (Not Detect) M.pneumoniae DNA (PCR) (Not Detect) Parainfluenza 1 (PCR) (Not Detect) Parainfluenza 2 (PCR) (Not Detect) Parainfluenza 3 (PCR) (Not Detect) Parainfluenza 4 (PCR) (Not Detect) RSV (PCR) (Not Detect) Entero/Rhino (PCR) (Not Detect) Exam - Constitutional Vitals: Temp Pulse Resp BP Pulse Ox 98.9 F 95 16 104/76 97 05/31/18 11:04 05/31/18 11:04 05/31/18 11:04 05/31/18 11:04 05/31/18 11:04 Exam: Gen.: Vitals noted. No acute distress. AAOx2.5. Able to state President but not date. Appears very much improved in his mental status. Non toxic HEENT: PERRL/EOMI, oropharynx clear, Normocephalic, atraumatic, MMM Cardiac: RRR, no murmur, +S1/S2 Pulmonary: CTA bilaterally, no wheezes, rales or rhonchi, equal chest expansion Abdomen: soft, nontender, BS noted, no guarding, no rebound. MSK: ROM intact, no joint swelling noted Extremities: no BLE edema, nontender calf, no cyanosis or clubbing Neuro: A&O, moves all extremities, no focal deficits Psych: Appropriate mood and behavior Consult Discharge Plan - Plan Referrals: Lupe Mcdonnell, BUSINESS RULES ANALYST [Primary Care Provider] - - Attending Attestation I examined this patient and my medical decision-making was reviewed with the Resident Physician. I agree with the documented findings, disposition and treatment plan as described except to the extent set forth below.
--- NOTE | 2018-05-31 12:54 | Internal Med Progress Note ---
Hospitalist Progress Note - Encounter Date of Encounter: 05/31/18 Time of Encounter: 12:51 - Subjective Interval History: Pt appears to be clinically improving today. He denies N/V, abdominal pain. He denies fever or chills. Denies CP or SOB. He was alert and oriented times 3 but overall poor historian. - Exam Vitals: Temp Pulse Resp BP Pulse Ox 98.9 F 95 16 104/76 97 05/31/18 11:04 05/31/18 11:04 05/31/18 11:04 05/31/18 11:04 05/31/18 11:04 Exam: Exam: General: Alert and oriented 3; lying in bed in no acute distress HEENT:EOM, pupils equal, round and reactive. Cardiovascular:Normal S1 & S2, tachycardia; no rubs, murmurs or gallops. No JVD. Pulse regular. Lungs: Diffuse rhonchi appreciated in the right posterior thorax. Abdomen:Soft, non-tender, no rigidity. Extremities:No deformity, no edema or tenderness, no joint swelling or clubbing. Neurological:Normal cognition and motor skills. Pulses:Carotid and radial pulses normal +2. Skin:Normal color, no rash, no lesions. - Assessment and Plan (1) Sepsis Current Visit: Yes Status: Acute Assessment and Plan: Patient presents with fever, elevated white blood cell count and tachycardia in the 140s in the setting of right upper lobe consolidation consistent with sepsis. WBC trending down. Heart rate still elevated. EKG 12 lead . He as nauseous and vomiting during HD 05/28/2018. He subsequently then developed diarrhea. Stool panel negative. Lactic acid on admission was 1.5. Given the patient's end-stage renal disease the 30 mL/kg fluid bolus was not given. He did receive 250 mL boluses 2 and about another liter of NS. Discussed with nephrology who states to avoid scheduled fluids for now. fluid support per nephrology recommendation. ID Consulting. Continue with Zosyn, and Vancomycin. Consulted ID and will follow antibiotic recommendations. Concerned pt may have multiple sources of infection. Lipase 17. Non-contrast abdominal CT showing GB wall thickening and gall stone. Abdominal ultrasound shows gall stones and gall bladder wall thickening but normal liver. Pt denies RUQ pain resp panel + for rhino/entero virus MRSA nasal swab + Chest x ray and CT showing RUL PNA Following-up blood cultures, legionella, strep, and mycoplasma results. Pt transfered to tele 05/30/2018, from 2N/ICU over pt is more stable. (2) HCAP (healthcare-associated pneumonia) Current Visit: Yes Status: Acute Assessment and Plan: 1 week history of productive cough associated with fever and shortness of breath. Fever, cough, leukocytosis and findings of a Right upper lobe consolidation in a patient with end-stage renal disease on hemodialysis. Patient started on broad-spectrum antibiotics for coverage for healthcare associated pneumonia. Continue antibiotics per nephrology. Blood culture, Legionella, strep urine and resp panel results pending. (3) End stage renal disease Current Visit: Yes Status: Chronic Assessment and Plan: End-stage renal disease on dialysis Monday. Nephrology consulting and continued on scheduled HD (4) Hypoglycemia Current Visit: Yes Status: Acute Assessment and Plan: Etiology is not completely clear. Hypoglycemia appears to be improving with resolution of sepsis so possibly due to sepsis Monitoring glucose Q 30 minutes and replacing with prn dextrose and alternating with glucagon for now. Per Dr. 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 There was initial concern for adrenal insufficiency and ACTH sim test was ordered however, the test was not completed this morning. Other differential includes sepsis vs non-islet cell tumor hypoglycemia vs other. Will re attempt to recheck ACTH sim test in am. Will hold off on trial of prednisone. (5) Encephalopathy acute Current Visit: Yes Status: Resolved Assessment and Plan: Metabolic encephalopathy. Likely due to acute illness and has improved. Will continue to monitor closely on telemetry. (6) Leukocytosis Current Visit: Yes Status: Acute Assessment and Plan: Pt's WBC up to 26.2 05/30/2018. WBC 12.6 05/31/2018. Blood cultures in progress.On appropriate meds for PNA. Entero/rhino +, MRSA nasal +, Left hip joint aspirated and fluid sent for analysis. CT abd showing gall stones and gall bladder wall thickening and Abd US showing the same Legionella and strep ordered but not sent yet ID on board. Continue antibiotics per ID. Will continue to monitor. DVT Prophylaxis: SCD - Summary of Assessment and Plan Summary of Assessment and Plan: History of present illness: Dr. Ryan Patient was seen and examined on 05/27/2018 Mr. Herrera is a 42 year old male with a past medical history of end-stage renal disease on hemodialysis and hypertension who presented to the ED due to a 1 week history of productive cough and shortness of breath. Patient reports symptoms of an ongoing for the past week. He noted a subjective fever earlier today. Reports productive cough. On arrival was found to be in sinus tachycardia with a heart rate in the 140s with an elevated white blood cell count of 12. Given the patient's end-stage renal disease the 30 mL/kg fluid bolus was not given. He did receive 250 mL boluses 2. Patient's heart rate and tachycardia improved during the ED course. Patient was started on broad-spectrum antibiotics including bank, cefepime and azithromycin. Patient's chest x-ray is concerning for a right upper lobe infiltrate. A CT scan was followed up to further evaluate x-ray findings which did confirm a right upper lobe consolidation concerning for pneumonia. Patient is anuric and thus cannot produce any urine. Urine Legionella and strep were not ordered in the ED. ED provider discussed case with nephrology who will follow the patient on the inpatient service for HD. - Time Spent with Patient Total time spent is greater than 50% in coordination of care (as documented) at patient's floor/unit and/or counseling patient: less than 15 minutes Plan of Care Discussed with: patient Internal Medicine: Result - Labs CBC & Chem 7: 05/31/18 04:30 05/31/18 04:30 Labs: Short CBC 05/31/18 Range/Units 04:30 WBC 12.6 H D (4.3-11.1) K/mcL Hgb 13.0 (12.9-16.9) g/dL Hct 40.0 (37.5-50.1) % Plt Count 106 L (140-400) K/mcL Neutrophils # 9.4 H (1.6-8.9) K/mcL BMP 05/31/18 04:30 Sodium 133 L Potassium 3.1 L Chloride 90 L Carbon Dioxide 29 BUN 40 H Creatinine 3.72 H Glucose 125 H Calcium 7.4 L - ABG Interpretation ABG results: ABG ABG pH 7.53 pH Units (7.32-7.45) H 05/28/18 17:44 ABG pCO2 37 mmHg (35-45) 05/28/18 17:44 ABG pO2 97 mmHg (85-104) 05/28/18 17:44 ABG O2 Saturation 98 % (95-98) 05/28/18 17:44 PT/INR, D-dimer PT 21.1 Seconds (9.4-12.1) H 05/29/18 12:34 Consult Discharge Plan - Plan Referrals: Lupe Mcdonnell, DISTRIBUTION DISPATCHER [Primary Care Provider] - (1) Sepsis Qualifiers: Sepsis type: sepsis due to unspecified organism Qualified Code(s): A41.9 - Sepsis, unspecified organism
[2018-05-31] MEDS ORDERED: Cosyntropin 250 MCG/2 ML VIAL IVP ONE (14:21)
[2018-05-31 15:19] LABS: Mycoplasma pneumoniae IgG 0.55 U/L (<=0.09)
[2018-05-31] MEDS: Acetaminophen 325 MG TABLET PO PRN (20:31)
[2018-06-01 05:30] LABS: BUN/Creatinine Ratio 12 (6-26); Blood Urea Nitrogen 61 mg/dL (6-20); Calcium 6.3 mg/dL (8.6-10.3); Carbon Dioxide 25 mEq/L (23-29); Chloride 88 mEq/L (98-107); Glucose 135 mg/dL (70-105); Magnesium 2.1 mg/dL (1.6-2.6); Osmolality,Calculated 283 (280-300); Potassium 3.7 mEq/L (3.5-5.1); Sodium 127 mEq/L (136-145); eGFR For Non-African Americans 13 (> 60)
[2018-06-01] MEDS: Piperacillin/Tazobactam 3.375 GM in 0.9 % Sodium Chloride Mini Bag 100 ML IVPB SCH (05:39)
--- NOTE | 2018-06-01 07:24 | Nephrology Progress Note ---
Date of Encounter: 06/01/18 Time of Encounter: 08:15 - Assessment and Plan (1) ESRD (end stage renal disease) on dialysis Current Visit: Yes Status: Acute Dialysis arranged today for clearance to help correct electrolytes and for maintenance of his volume status. Current regimen is MWF at [facility]. Strict I/O Avoid nephrotoxins and renal dose. (2) HCAP (healthcare-associated pneumonia) Current Visit: Yes Status: Acute (3) Hypoglycemia Current Visit: Yes Status: Acute (4) Hyponatremia Current Visit: Yes Status: Acute (5) Hypokalemia Current Visit: Yes Status: Acute Subjective Principal diagnosis: elevated BP Interval history: He reported feeling relatively well without new N/V/D and he said he hopes to discharge to home soon. Objective - Vital Signs Vital signs: Vital Signs Temp Pulse Resp BP Pulse Ox 06/01/18 07:02 97.9 F 82 18 126/85 96 06/01/18 03:56 97.9 F 89 16 135/90 98 05/31/18 23:55 98.5 F 96 16 125/84 96 05/31/18 19:24 98.1 F 83 16 134/85 98 05/31/18 16:08 97.9 F 89 18 137/93 97 05/31/18 11:04 98.9 F 95 16 104/76 97 Intake and Output 05/31/18 05/31/18 06/01/18 15:59 23:59 07:59 Intake Total 820 / 820 1350 / 1350 Balance 820 / 820 1350 / 1350 Intake: IV Fluids 1350 / 1350 Dextrose 5% 1,000 ML @ 75 mls/ 1000 / 1000 hr IVC .[id number] PRN Rx#: [id number] Zosyn 3.375 GM In 0.9 % Sodium 200 / 200 Chloride (Mini-Bag +) 100 ML @ 25 mls/hr IVPB Q12HR KARUNA Rx#: [id number] Oral 820 / 820 Other: Meal Lunch Weight 48 kg Blood Glucose* 197 157 96 - General Appearance General appearance: Present: well-nourished, appears started age Exam: short body habitus. EENT: Present: ATNC, PERRL, mucous membranes moist Neck: Present: supple Respiratory: Present: clear Cardiology: Present: no edema, regular rate, regular rhythm, normal S1, normal S2 Dialysis Vascular Access: Arteriovenous Fistula thrill: Yes bruit: Yes Gastrointestinal: Present: normoactive bowel sounds, no tenderness, no masses Integumentary: Present: no rash, warm and dry Additional Comments: Bronze colored skin. Neurologic: Present: no focal deficit, no asterixis, alert and oriented x3 Musculoskeletal: Present: no deformities, no erythema, no cyanosis Psychiatric: Present: mood/affect appropriate, cooperative - Lab 05/31/18 04:30 06/01/18 04:15 Most recent lab results ABG pH 7.53 pH Units (7.32-7.45) H 05/28/18 17:44 ABG pCO2 37 mmHg (35-45) 05/28/18 17:44 ABG pO2 97 mmHg (85-104) 05/28/18 17:44 ABG HCO3 31 mEq/L (21-27) H 05/28/18 17:44 ABG O2 Saturation 98 % (95-98) 05/28/18 17:44 Calcium 6.3 mg/dL (8.6-10.3) L 06/01/18 04:15 Phosphorus 2.5 mg/dL (2.7-4.5) L 05/28/18 04:38 Magnesium 2.1 mg/dL (1.6-2.6) 06/01/18 04:15 Consult Discharge Plan - Plan Referrals: Lupe Mcdonnell CNP [Primary Care Provider] - 06/13/18 11:15 am (follow up made. )
[2018-06-01] MEDS ORDERED: Cosyntropin 250 MCG/2 ML VIAL IVP ONE (08:15)
--- NOTE | 2018-06-01 10:52 | Infectious Disease Progress No ---
Date of Encounter: 06/01/18 Time of Encounter: 09:20 - Assessment and Plan (1) Sepsis Status: Acute - On presentation met 4/4 SIRS criteria with Fever of 101.8, HR 145, RR 20, WBC 12.0 - Lactic acid wnl at 1.5 - Signs of end organ damage with metabolic encephalopathy - Probable source: Pulmonary- PNA - Causative organism: unclear - No longer meeting sepsis criteria with normal vitals. Afebrile since 05/28 leukocytosis greatly improved from 26.2 to 12.6 - Mild elevation in LFTs of unclear etiology but possibly related to sepsis. AST 46, ALk 150 - Also noted to be hypoglycemic which could be related to acute illness. Improved - RIP positive for rhinovirus - GI panel negative - Hip aspiration shows only 984 nucleated cells. Unlikely source of infection - Strep pneumo Ag and Legionella Ag have been ordered however patient does not make urine. - MRSA swab positive - ROS difficult to determine as patient is altered. Unclear baseline, no complaints at this time Physical exam shows some diminished breath sounds, otherwise unimpressive - Blood cultures 05/27 x2 NG - Blood cultures 05/28 x 2 NG - Sputum culture obtained 05/30 shows many epithelial cells and thus was not cultured - CXR on admission as well as CT chest 05/28 show significant RUL consolidation which likely represents PNA - CT abd/pelvis on 05/28 shows questionable cholecystitis and hip dysplasia, h owever in the absence of symptoms this is less likely the source of infection - RUQ US shows diffuse gallbladder thickening with a negative sonographic Hoffman sign. No evidence of cholelithiasis as well as a 6 mm polyp. ABx thus far: Given one dose of Azithromycin and cefepime Current regimen of Levaquin (day 4), Zosyn (day5), Vancomycin (day 6) Plan -- Clinically I do feel as if he is improving and stable. - Suspect that this is mostly due to pneumonia with positive rhinovirus and consolidation on CT. - Peripheral smear pending. - Patient is immunocompromised due to ESRD - Recommending continuing Zosyn, vancomycin (day 6 of abx) -- When ready for discahrge, recommend augmentin and doxycyline for a total of 14 days, through 06/10/18 Qualifiers: Sepsis type: sepsis due to unspecified organism Qualified Code(s): A41.9 - Sepsis, unspecified organism (2) Nausea & vomiting Status: Acute - as above for sepsis - possible aspiration events Qualifiers: Vomiting type: unspecified Vomiting Intractability: intractable Qualified Code(s): R11.2 - Nausea with vomiting, unspecified (3) Encephalopathy acute Status: Resolved - Likely secondary to sepsis as above - Also less likely is encephalitis, uremia, hepatic - Management of underlying conditions as above. -- Appears to be resolved, unclear baseline, no family present at bedside (4) HCAP (healthcare-associated pneumonia) Status: Acute As above for sepsis (5) End stage renal disease Status: Chronic Secondary to unknown congenital disease - MWF dialysis at home - Management per nephro and primary team - Renally dose medications - Subjective Interval history: Patient was seen and examined at bedside. He states overall he is feeling well with no current complaints. He denies any further episode of emesis or nausea. He states he has not had any fevers, chills, cough, shortness of breath, pain. He has no overnight events. No family at bedside. Infect Dis PN-Objective Data - Labs CBC & Chem 7: 05/31/18 04:30 06/01/18 04:15 Labs: Laboratory Results - last 24 hr 05/29/18 05/30/18 05/30/18 11:06 20:36 21:57 Sodium Potassium Chloride Carbon Dioxide BUN Creatinine Est GFR ( Amer) Est GFR (Non-Af Amer) BUN/Creatinine Ratio Glucose POC Glucose 302 H 210 H Calculated Osmolality Calcium Magnesium Random Cortisol Cortisol Resp to ACTH Stool Occult Blood Random Vancomycin Mycoplasma pneumon IgG 0.55 H Mycoplasma pneumon IgM 0.29 05/31/18 05/31/18 05/31/18 00:35 02:32 11:09 Sodium Potassium Chloride Carbon Dioxide BUN Creatinine Est GFR ( Amer) Est GFR (Non-Af Amer) BUN/Creatinine Ratio Glucose POC Glucose 89 109 H 197 H Calculated Osmolality Calcium Magnesium Random Cortisol Cortisol Resp to ACTH Stool Occult Blood Random Vancomycin Mycoplasma pneumon IgG Mycoplasma pneumon IgM 05/31/18 05/31/18 06/01/18 16:11 19:35 00:00 Sodium Potassium Chloride Carbon Dioxide BUN Creatinine Est GFR ( Amer) Est GFR (Non-Af Amer) BUN/Creatinine Ratio Glucose POC Glucose 95 156 H 157 H Calculated Osmolality Calcium Magnesium Random Cortisol Cortisol Resp to ACTH Stool Occult Blood Random Vancomycin Mycoplasma pneumon IgG Mycoplasma pneumon IgM 06/01/18 06/01/18 06/01/18 00:15 04:15 04:15 Sodium 127 L Potassium 3.7 Chloride 88 L Carbon Dioxide 25 BUN 61 H Creatinine 4.93 H Est GFR ( Amer) 16 L Est GFR (Non-Af Amer) 13 L BUN/Creatinine Ratio 12 Glucose 135 H POC Glucose Calculated Osmolality 283 Calcium 6.3 L Magnesium 2.1 Random Cortisol TNP Cortisol Resp to ACTH Stool Occult Blood Negative Random Vancomycin 15 Mycoplasma pneumon IgG Mycoplasma pneumon IgM 06/01/18 04:15 Sodium Potassium Chloride Carbon Dioxide BUN Creatinine Est GFR ( Amer) Est GFR (Non-Af Amer) BUN/Creatinine Ratio Glucose POC Glucose Calculated Osmolality Calcium Magnesium Random Cortisol Cortisol Resp to ACTH Stool Occult Blood Random Vancomycin Mycoplasma pneumon IgG Mycoplasma pneumon IgM Cultures: Cultures 06/01/18 08:45 Blood Fungal Culture - Preliminary Peripheral Venipuncture Culture is incubating and being continuously monitored for growth. Final report to follow. 05/29/18 17:00 Body Fluid Culture - Preliminary Synovial Fluid 05/31/18 00:30 Sputum Culture - Final Sputum 05/28/18 17:02 Blood Culture - Preliminary Peripheral Venipuncture Culture is incubating and being continuously monitored for growth. Final report to follow. 05/28/18 17:07 Blood Culture - Preliminary Peripheral Venipuncture Culture is incubating and being continuously monitored for growth. Final report to follow. 05/27/18 18:43 Blood Culture - Preliminary Peripheral Venipuncture Culture is incubating and being continuously monitored for growth. Final report to follow. 05/27/18 18:43 Blood Culture - Preliminary Peripheral Venipuncture Culture is incubating and being continuously monitored for growth. Final report to follow. Serology 06/01/18 05/30/18 05/29/18 Range/Units 00:15 17:40 21:27 Fl Pathologist Review Synovial Source Synovial Color (Straw) Synovial Appearance (Clear-Hazy) Synovial Volume mL Synovial RBC (0.000 - 0.002) M/mcl Synovial Tot Nuc Cell (0-200) TNC/mcL Synovial Band Neuts Synovial Basophils Synovial Eosinophils Synovial Seg Neuts % % Synovial Lymphocytes % % Synovial Monocytes % Synovial Other Cells % Synovial Crystals (None Seen) Synovial Glucose (No Ref Range) mg/dL Synovial Total Protein (No Ref Range) g/dL Synovial LDH (No Ref Range) Units/L Nasal Screen MRSA (PCR) Positive A (Negative) Stool Occult Blood Negative Negative (Negative) Stl C. cayetanensis PCR (Not detect) Stool Rotavirus A PCR (Not detect) Stl Adenov F 40/41 PCR (Not detect) Stool Astrovirus (PCR) (Not detect) Stool Campylobacter PCR (Not detect) Stl C. diff Tox A/B PCR (Not detect) Stool Cryptosporidium PCR (Not detect) Stl Sh Tox Pr E STEC PCR (Not detect) Stool E coli O157 PCR (Not detect) Stl Enterotoxigenic E PCR (Not detect) Stool EPEC (PCR) (Not detect) Stool EAEC (PCR) (Not detect) Stl E. histolytica PCR (Not detect) Stool Giardia Lamblia PCR (Not detect) Stool Salmonella PCR (Not detect) Stool Sapovirus (PCR) (Not detect) Stl P. shigelloides PCR (Not detect) Stl Shigella/EIEC PCR (Not detect) St Y.enterocolitica PCR (Not detect) Stool Vibrio (PCR) (Not detect) Stl Vibrio cholerae PCR (Not detect) Stl Norovirus GI/GII PCR (Not detect) Stl GI Panel (PCR) Com Chlamy pneumoniae PCR (Not Detect) Adenovirus (PCR) (Not Detect) B. pertussis DNA (PCR) (Not Detect) B.parapertussis DNA PCR (Not Detect) Coronavirus OC43 (PCR) (Not Detect) Coronavirus HKU1 (PCR) (Not Detect) Coronavirus 229E (PCR) (Not Detect) Coronavirus NL63 (PCR) (Not Detect) Hep Bs Antigen (Nonreactive) Hep Bs Antibody mIU/mL Human Metapneumovir PCR (Not Detect) Influenza A (H1) PCR (Not Detect) Influ A (H1N1/09) PCR (Not Detect) Influenza A (H3) PCR (Not Detect) Influenza A Untype (PCR) (Not Detect) Influenza Type B (PCR) (Not Detect) M.pneumoniae DNA (PCR) (Not Detect) Mycoplasma pneumon IgG (<=0.09) U/L Mycoplasma pneumon IgM (<=0.76) U/L Parainfluenza 1 (PCR) (Not Detect) Parainfluenza 2 (PCR) (Not Detect) Parainfluenza 3 (PCR) (Not Detect) Parainfluenza 4 (PCR) (Not Detect) RSV (PCR) (Not Detect) Entero/Rhino (PCR) (Not Detect) 05/29/18 05/29/18 05/29/18 Range/Units 17:00 17:00 17:00 Fl Pathologist Review See below Synovial Source LEFT HIP EFFUSION Synovial Color Straw (Straw) Synovial Appearance Hazy (Clear-Hazy) Synovial Volume 13.0 mL Synovial RBC 0.002 (0.000 - 0.002) M/mcl Synovial Tot Nuc Cell 984 H (0-200) TNC/mcL Synovial Band Neuts Test Not Performed Synovial Basophils Test Not Performed Synovial Eosinophils Test Not Performed Synovial Seg Neuts % 99.0 % Synovial Lymphocytes % 1.0 % Synovial Monocytes % Test Not Performed Synovial Other Cells % Test Not Performed Synovial Crystals No Crystals Seen (None Seen) Synovial Glucose 79 (No Ref Range) mg/dL Synovial Total Protein 3.9 (No Ref Range) g/dL Synovial LDH 137 (No Ref Range) Units/L Nasal Screen MRSA (PCR) (Negative) Stool Occult Blood (Negative) Stl C. cayetanensis PCR (Not detect) Stool Rotavirus A PCR (Not detect) Stl Adenov F 40/41 PCR (Not detect) Stool Astrovirus (PCR) (Not detect) Stool Campylobacter PCR (Not detect) Stl C. diff Tox A/B PCR (Not detect) Stool Cryptosporidium PCR (Not detect) Stl Sh Tox Pr E STEC PCR (Not detect) Stool E coli O157 PCR (Not detect) Stl Enterotoxigenic E PCR (Not detect) Stool EPEC (PCR) (Not detect) Stool EAEC (PCR) (Not detect) Stl E. histolytica PCR (Not detect) Stool Giardia Lamblia PCR (Not detect) Stool Salmonella PCR (Not detect) Stool Sapovirus (PCR) (Not detect) Stl P. shigelloides PCR (Not detect) Stl Shigella/EIEC PCR (Not detect) St Y.enterocolitica PCR (Not detect) Stool Vibrio (PCR) (Not detect) Stl Vibrio cholerae PCR (Not detect) Stl Norovirus GI/GII PCR (Not detect) Stl GI Panel (PCR) Com Chlamy pneumoniae PCR (Not Detect) Adenovirus (PCR) (Not Detect) B. pertussis DNA (PCR) (Not Detect) B.parapertussis DNA PCR (Not Detect) Coronavirus OC43 (PCR) (Not Detect) Coronavirus HKU1 (PCR) (Not Detect) Coronavirus 229E (PCR) (Not Detect) Coronavirus NL63 (PCR) (Not Detect) Hep Bs Antigen (Nonreactive) Hep Bs Antibody mIU/mL Human Metapneumovir PCR (Not Detect) Influenza A (H1) PCR (Not Detect) Influ A (H1N1/09) PCR (Not Detect) Influenza A (H3) PCR (Not Detect) Influenza A Untype (PCR) (Not Detect) Influenza Type B (PCR) (Not Detect) M.pneumoniae DNA (PCR) (Not Detect) Mycoplasma pneumon IgG (<=0.09) U/L Mycoplasma pneumon IgM (<=0.76) U/L Parainfluenza 1 (PCR) (Not Detect) Parainfluenza 2 (PCR) (Not Detect) Parainfluenza 3 (PCR) (Not Detect) Parainfluenza 4 (PCR) (Not Detect) RSV (PCR) (Not Detect) Entero/Rhino (PCR) (Not Detect) 05/29/18 05/29/18 05/28/18 Range/Units 11:06 03:34 21:30 Fl Pathologist Review Synovial Source Synovial Color (Straw) Synovial Appearance (Clear-Hazy) Synovial Volume mL Synovial RBC (0.000 - 0.002) M/mcl Synovial Tot Nuc Cell (0-200) TNC/mcL Synovial Band Neuts Synovial Basophils Synovial Eosinophils Synovial Seg Neuts % % Synovial Lymphocytes % % Synovial Monocytes % Synovial Other Cells % Synovial Crystals (None Seen) Synovial Glucose (No Ref Range) mg/dL Synovial Total Protein (No Ref Range) g/dL Synovial LDH (No Ref Range) Units/L Nasal Screen MRSA (PCR) (Negative) Stool Occult Blood (Negative) Stl C. cayetanensis PCR Not detected (Not detect) Stool Rotavirus A PCR Not detected (Not detect) Stl Adenov F 40/41 PCR Not detected (Not detect) Stool Astrovirus (PCR) Not detected (Not detect) Stool Campylobacter PCR Not detected (Not detect) Stl C. diff Tox A/B PCR Not detected (Not detect) Stool Cryptosporidium PCR Not detected (Not detect) Stl Sh Tox Pr E STEC PCR Not detected (Not detect) Stool E coli O157 PCR Not detected (Not detect) Stl Enterotoxigenic E PCR Not detected (Not detect) Stool EPEC (PCR) Not detected (Not detect) Stool EAEC (PCR) Not detected (Not detect) Stl E. histolytica PCR Not detected (Not detect) Stool Giardia Lamblia PCR Not detected (Not detect) Stool Salmonella PCR Not detected (Not detect) Stool Sapovirus (PCR) Not detected (Not detect) Stl P. shigelloides PCR Not detected (Not detect) Stl Shigella/EIEC PCR Not detected (Not detect) St Y.enterocolitica PCR Not detected (Not detect) Stool Vibrio (PCR) Not detected (Not detect) Stl Vibrio cholerae PCR Not detected (Not detect) Stl Norovirus GI/GII PCR Not detected (Not detect) Stl GI Panel (PCR) Com See below Chlamy pneumoniae PCR Not Detected (Not Detect) Adenovirus (PCR) Not Detected (Not Detect) B. pertussis DNA (PCR) Not Detected (Not Detect) B.parapertussis DNA PCR Not Detected (Not Detect) Coronavirus OC43 (PCR) Not Detected (Not Detect) Coronavirus HKU1 (PCR) Not Detected (Not Detect) Coronavirus 229E (PCR) Not Detected (Not Detect) Coronavirus NL63 (PCR) Not Detected (Not Detect) Hep Bs Antigen (Nonreactive) Hep Bs Antibody mIU/mL Human Metapneumovir PCR Not Detected (Not Detect) Influenza A (H1) PCR Not Detected (Not Detect) Influ A (H1N1/09) PCR Not Detected (Not Detect) Influenza A (H3) PCR Not Detected (Not Detect) Influenza A Untype (PCR) Not Detected (Not Detect) Influenza Type B (PCR) Not Detected (Not Detect) M.pneumoniae DNA (PCR) Not Detected (Not Detect) Mycoplasma pneumon IgG 0.55 H (<=0.09) U/L Mycoplasma pneumon IgM 0.29 (<=0.76) U/L Parainfluenza 1 (PCR) Not Detected (Not Detect) Parainfluenza 2 (PCR) Not Detected (Not Detect) Parainfluenza 3 (PCR) Not Detected (Not Detect) Parainfluenza 4 (PCR) Not Detected (Not Detect) RSV (PCR) Not Detected (Not Detect) Entero/Rhino (PCR) DETECTED A (Not Detect) 05/28/18 Range/Units 07:04 Fl Pathologist Review Synovial Source Synovial Color (Straw) Synovial Appearance (Clear-Hazy) Synovial Volume mL Synovial RBC (0.000 - 0.002) M/mcl Synovial Tot Nuc Cell (0-200) TNC/mcL Synovial Band Neuts Synovial Basophils Synovial Eosinophils Synovial Seg Neuts % % Synovial Lymphocytes % % Synovial Monocytes % Synovial Other Cells % Synovial Crystals (None Seen) Synovial Glucose (No Ref Range) mg/dL Synovial Total Protein (No Ref Range) g/dL Synovial LDH (No Ref Range) Units/L Nasal Screen MRSA (PCR) (Negative) Stool Occult Blood (Negative) Stl C. cayetanensis PCR (Not detect) Stool Rotavirus A PCR (Not detect) Stl Adenov F 40/41 PCR (Not detect) Stool Astrovirus (PCR) (Not detect) Stool Campylobacter PCR (Not detect) Stl C. diff Tox A/B PCR (Not detect) Stool Cryptosporidium PCR (Not detect) Stl Sh Tox Pr E STEC PCR (Not detect) Stool E coli O157 PCR (Not detect) Stl Enterotoxigenic E PCR (Not detect) Stool EPEC (PCR) (Not detect) Stool EAEC (PCR) (Not detect) Stl E. histolytica PCR (Not detect) Stool Giardia Lamblia PCR (Not detect) Stool Salmonella PCR (Not detect) Stool Sapovirus (PCR) (Not detect) Stl P. shigelloides PCR (Not detect) Stl Shigella/EIEC PCR (Not detect) St Y.enterocolitica PCR (Not detect) Stool Vibrio (PCR) (Not detect) Stl Vibrio cholerae PCR (Not detect) Stl Norovirus GI/GII PCR (Not detect) Stl GI Panel (PCR) Com Chlamy pneumoniae PCR (Not Detect) Adenovirus (PCR) (Not Detect) B. pertussis DNA (PCR) (Not Detect) B.parapertussis DNA PCR (Not Detect) Coronavirus OC43 (PCR) (Not Detect) Coronavirus HKU1 (PCR) (Not Detect) Coronavirus 229E (PCR) (Not Detect) Coronavirus NL63 (PCR) (Not Detect) Hep Bs Antigen Nonreactive (Nonreactive) Hep Bs Antibody 13.16 mIU/mL Human Metapneumovir PCR (Not Detect) Influenza A (H1) PCR (Not Detect) Influ A (H1N1/09) PCR (Not Detect) Influenza A (H3) PCR (Not Detect) Influenza A Untype (PCR) (Not Detect) Influenza Type B (PCR) (Not Detect) M.pneumoniae DNA (PCR) (Not Detect) Mycoplasma pneumon IgG (<=0.09) U/L Mycoplasma pneumon IgM (<=0.76) U/L Parainfluenza 1 (PCR) (Not Detect) Parainfluenza 2 (PCR) (Not Detect) Parainfluenza 3 (PCR) (Not Detect) Parainfluenza 4 (PCR) (Not Detect) RSV (PCR) (Not Detect) Entero/Rhino (PCR) (Not Detect) Exam - Constitutional Vitals: Temp Pulse Resp BP Pulse Ox 97.9 F 82 18 126/85 96 06/01/18 07:02 06/01/18 07:02 06/01/18 07:02 06/01/18 07:02 06/01/18 07:02 Exam: Gen.: Vitals noted. No acute distress. AAOx3 HEENT: PERRL/EOMI, oropharynx clear, Normocephalic, atraumatic, MMM Cardiac: RRR, no murmur, +S1/S2 Pulmonary: CTA bilaterally, no wheezes, rales or rhonchi, equal chest expansion Abdomen: soft, nontender, BS noted, no guarding, no rebound. MSK: ROM intact, no joint swelling noted Extremities: no BLE edema, nontender calf, no cyanosis or clubbing Neuro: A&Ox3, moves all extremities, no focal deficits Psych: Appropriate mood and behavior Consult Discharge Plan - Plan Instructions: Sepsis (DC), Pneumonia (DC) Referrals: Lupe Mcdonnell CNP [Primary Care Provider] - 06/13/18 11:15 am (follow up made. ) Prescriptions: Amoxicillin/Clavulanate [Augmentin] 500 mg PO BIDWM 10 Days #20 tablet RX: Doxycycline 100 mg PO BID 10 Days #20 capsule - Attending Attestation I examined this patient and my medical decision-making was reviewed with the Resident Physician. I agree with the documented findings, disposition and treatment plan as described except to the extent set forth below.
[2018-06-01 11:27] VITALS: BP 116/70
--- NOTE | 2018-06-01 12:28 | Discharge Summary ---
- NOTES TO OUTPATIENT PROVIDER Notes to Outpatient Provider: Patient was admitted for sepsis secondary to RUL pneumonia and hypoglycemia. Also tested positive for rhinovirus. Treated initially with vanc/zosyn which was de-escalated to PO augmentin/doxycycline per ID recommendation. He had remained mostly normotensive during his stay and only Norvasc and clonidine patch was restarted for HTN. Hydralazine and lisinopril to be resumed as outpatient as needed. Orders not resulted at time of discharge: Pending orders 05/27/18 18:43 Culture,Blood [BC] Stat 05/27/18 19:41 Legionella Antigen [RM] Stat S. Pneumoniae Antigen [RM] Stat 05/28/18 17:02 Culture,Blood [BC] Stat 05/29/18 17:00 Culture,Body Fluid [RM] Routine 05/30/18 15:58 Fungal Culture,Blood [MYC] Routine Date of Encounter: 06/01/18 Time of Encounter: 08:45 - Discharge Diagnosis (1) End stage renal disease Priority: Secondary Status: Chronic (2) HCAP (healthcare-associated pneumonia) Priority: Secondary Status: Acute (3) Sepsis Priority: Primary Status: Acute Qualifiers: Sepsis type: sepsis due to unspecified organism Qualified Code(s): A41.9 - Sepsis, unspecified organism (4) Hypoglycemia Priority: Secondary Status: Acute (5) Encephalopathy acute Priority: Secondary Status: Resolved (6) Leukocytosis Priority: Secondary Status: Acute Qualifiers: Leukocytosis type: unspecified Qualified Code(s): D72.829 - Elevated white blood cell count, unspecified Hospital course: Mr. Herrera is a 42 year old male with history of ESRD, hypertension was admitted for sepsis secondary to RUL pneumonia and hypoglycemia. Also tested positive for rhinovirus. Treated initially with vanc/zosyn which was de-escalated to PO augmentin/doxycycline per ID recommendation. He will complete a total of 14 days of abx. Of note, he had remained mostly normotensive during his stay and only Norvasc and clonidine patch was restarted for HTN. Hydralazine and lisinopril to be resumed as outpatient as needed. Discharge discussed with: patient, nurse - Time Spent with Patient Total time spent providing and/or coordinating discharge services: 33 mins - Discharge Medications Prescriptions: Amoxicillin/Clavulanate [Augmentin] 500 mg PO BIDWM 10 Days #20 tablet Doxycycline 100 mg PO BID 10 Days #20 capsule Home Medications: Amlodipine Besylate 10 mg PO DAILY 05/28/18 [History] CloNIDine Patch [Catapres-Tts] 0.3 patch TD Q72H 05/28/18 [History] Ergocalciferol (VITAMIN D2) [Vitamin D2] 50,000 unit PO QWEEK 05/28/18 [History] Folic Acid 1 mg PO DAILY 05/28/18 [History] Furosemide [Lasix] 40 mg PO BID PRN 05/28/18 [History] Lovastatin [Mevacor] 20 mg PO HS 05/28/18 [History] Phenytoin ER [Dilantin ER] 200 mg PO BID 05/28/18 [History] Amoxicillin/Clavulanate [Augmentin] 500 mg PO BIDWM 10 Days #20 tablet 06/01/18 [Rx] Doxycycline 100 mg PO BID 10 Days #20 capsule 06/01/18 [Rx] Allergies/Adverse Reactions: Allergy/AdvReac Type Severity Reaction Status Date / Time No Known Allergies Allergy Verified 05/28/18 07:44 Date of admission: 05/27/18 19:37 Primary care physician: Lupe Mcdonnell CNP Consults: 05/27/18 19:12 Consult to Nephrology [CONS] Stat Consulting Provider: Kidney Moira/APOLINAR/CRIS/VAN Reason for Consult: HD Call Completed: Yes 05/27/18 19:37 Consult to Nurse Navigator [CONS] Routine Comment: 05/28/18 06:51 Consult to Invasive Line Access Team [CONS] Routine Reason for Consult: sluggish iv access Line Type: PICC PICC line indications: Limited vascular access 05/28/18 08:00 Consult to Dialysis [CONS] ONCE 05/29/18 11:36 Consult to Interventional Radiology [CONS] Routine Consulting Provider: Radiology Interventional Cols Reason for Consult: Large left hip pleural effusion. Leukoctosis with bandemia.Fluid will need sent for analysis. Thanks! Call Completed: No 05/29/18 16:09 Consult to Infectious Diseases [CONS] Routine Consulting Provider: Infectious Disease Moira Reason for Consult: worsneing leukocytosis Call Completed: Yes 05/30/18 07:00 Consult to Dialysis [CONS] ONCE 06/01/18 06:45 Consult to Dialysis [CONS] ONCE - Constitutional Vitals: Temp Pulse Resp BP Pulse Ox 97.8 F 85 16 116/70 98 06/01/18 11:26 06/01/18 11:26 06/01/18 11:26 06/01/18 11:26 06/01/18 11:26 Exam: General: Alert and oriented, not in acute distress. Cardiovascular:Normal S1 & S2, No JVD. Pulse regular. Lungs: mostly clear to auscultation, no wheezes/rales Abdomen:Soft, non-tender, no rigidity. Extremities:No deformity or swelling Neurological:Normal cognition and motor skills. Non-focal - Patient Status Disposition: Home, Self-Care Condition: Fair Functional capacity at discharge: independent ambulation Overall status at discharge: patient is progressing back to baseline - Discharge Instructions Instructions: Pneumonia (DC), Sepsis (DC) Follow Up With: Lupe Mcdonnell [employer] TEACHER [Primary Care Provider] - 06/13/18 11:15 am (follow up made. ) - Diet and Activity Activity: resume usual activities as tolerated Diet: other (renal diet)
[2018-06-01] MEDS ORDERED: Vancomycin 500 MG in 0.9 % Sodium Chloride Mini Bag 100 ML IVPB ONE (14:00)
[2018-06-01] MEDS ORDERED: 0.9 % Sodium Chloride 1,000 ML ONE (14:02)
[2018-06-01] MEDS ORDERED: Aminoglycoside Consult 1 EACH MC ONE (17:59)
--- NOTE | 2018-06-02 21:43 | Electrocardiograph Report ---
[address] [place], [place] [address] Test Date: 2018-05-29 Pat Name: Simona Herrera Department: 112 Room: 2A15 Gender: M [employer]: : [id number] Requested By: Morenita Nascimento Order Number: [id number] Reading MD: Edison Zapata Measurements Intervals [place] Rate: 103 P: 66 NV: 178 QRS: -42 QRSD: 118 T: 44 QT: 363 QTc: 423 Interpretive Statements SINUS TACHYCARDIA POSSIBLE LEFT ATRIAL ENLARGEMENT MARKED LEFT AXIS DEVIATION MODERATE INTRAVENTRICULAR CONDUCTION DELAY Electronically Signed On 06-02-2018 21:42:07 EST by Edison Zapata
== END 2018-06-01 18:00 | disposition home or self-care (01) | DRG 720 ==
LOC: 2ANU 16:23 → EMEROOARM 16:23 → SUATTDRO 19:37 → 2ANU 21:01 → ICNU 05-28 14:53 → 2ANU 05-30 14:54
PROVIDERS: ADMIT Internal Medicine; ATTEND Internal Medicine

== ENCOUNTER 2018-07-03 19:55 | Observation (INO) ==
--- NOTE | 2018-07-03 21:14 | Emergency Department Note ---
Disposition Clinical Impression: End stage renal disease on dialysis, Transfusion history Anemia Qualifiers: Anemia type: unspecified type Qualified Code(s): D64.9 - Anemia, unspecified Disposition: Admitted As Inpatient Condition: Good Referrals: Lupe Mcdonnell CNP [Primary Care Provider] - Forms: ED Satisfaction Letter General Adult HPI - General Chief complaint: ED Recheck/Abnormal Lab/Rx Stated complaint: hemoglobin low/sent by doc Time Seen by Provider: 07/03/18 21:09 Source: patient, family Mode of arrival: ambulatory Limitations: no limitations Nursing Notes Reviewed: Yes Vital Signs Reviewed: Yes - History of Present Illness HPI Narrative: [id number]-year-old male with history of hypertension, hyperlipidemia and 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 The patient was seen by his primary care physician and told to come to the emergency department due to low hemoglobin. He was at dialysis yesterday and had labs drawn at that time. He does note some fatigue, increased sleep and dyspnea on exertion. Pain Scale: 0 - Related Data Home Medications Medication Instructions Recorded Confirmed CloNIDine Patch [Catapres-Tts] 0.3 patch TD MORRISON 05/28/18 07/04/18 Ergocalciferol (VITAMIN D2) 50,000 unit PO FR 05/28/18 07/04/18 [Vitamin D2] Folic Acid 1 mg PO DAILY 05/28/18 07/04/18 Furosemide [Lasix] 20 mg PO DAILY 05/28/18 07/04/18 Lovastatin [Mevacor] 20 mg PO HS 05/28/18 07/04/18 Phenytoin ER [Dilantin ER] 200 mg PO HS 05/28/18 07/04/18 Amlodipine Besylate 10 mg PO DAILY 06/21/18 07/04/18 Hydralazine HCl 100 mg PO BID 06/21/18 07/04/18 Lisinopril [Zestril] 40 mg PO BID 06/21/18 07/04/18 Phenytoin ER [Dilantin ER] 100 mg PO QPM 06/21/18 07/04/18 Phenytoin ER [Dilantin ER] 200 mg PO QAM 06/21/18 07/04/18 Allergies Allergy/AdvReac Type Severity Reaction Status Date / Time No Known Allergies Allergy Verified 06/21/18 19:59 All systems ED: reviewed and negative except as stated. Review of Systems: As Per HPI Constitutional: Reports: weakness. Denies: fever, chills, weight change Eyes: Denies: eye pain, eye discharge, vision change Cardiovascular: Denies: chest pain, palpitations, dyspnea on exertion, edema, syncope Respiratory: Denies: cough, dyspnea, wheezes, hemoptysis, stridor Gastrointestinal: Denies: abdominal pain, nausea, vomiting, diarrhea, constipation, hematemesis, melena, hematochezia Genitourinary: Denies: urgency, dysuria, frequency, hematuria Musculoskeletal: Denies: back pain, neck pain, arthralgia, myalgia Neurological: Reports: weakness. Denies: headache, numbness, paresthesias, confusion, abnormal gait Psychiatric: Denies: anxiety, depression, suicidal thoughts, homicidal thoughts Endocrine: Reports: fatigue. Denies: heat or cold intolerance Hematological/Lymphatic: Denies: easy bleeding, easy bruising Allergic/Immunologic: Denies: facial swelling Past Medical History - Past Medical History Attestation: Yes The following information was validated with the patient. Medical history: Reports: dialysis, hyperlipidemia, hypertension, renal disease (congenital) Surgical history: Reports: transplant (x2 renal) Psychiatric history: Reports: no psych history - Social History Smoking Status: Former smoker Smokeless Tobacco Status: No Alcohol use: Reports: none Drug use: Reports: none Physical Exam - General General appearance: alert, in no apparent distress - Head Head exam: atraumatic, normocephalic - Eye Eye exam: Present: normal appearance, PERRL - ENT ENT exam: normal exam, normal oropharynx, mucous membranes moist - Neck Neck exam: Present: normal inspection, full ROM, trachea midline - Chest Chest inspection: Present: normal inspection, symmetric chest wall rise. Absent: tenderness, rash - Respiratory Respiratory exam: Present: normal lung sounds bilaterally. Absent: respiratory distress, wheezes, stridor, accessory muscle use - Cardiovascular Cardiovascular exam: Present: normal rhythm, tachycardia, normal heart sounds - Abdominal Exam Abdominal exam: Present: soft, Non-Tender, normal bowel sounds. Absent: distention, guarding, rebound, rigidity - Neurological Exam Neurological exam: Present: alert, oriented X3 - Psychiatric Psychiatric exam: Present: normal affect, normal mood - Skin Skin exam: Present: warm, dry, intact. Absent: pallor, mottled Course Vital Signs Temperature 98.3 F 07/03/18 19:59 Pulse Rate 105 07/03/18 19:59 Respiratory Rate 16 07/03/18 19:59 Blood Pressure 160/88 07/03/18 19:59 O2 Sat by Pulse Oximetry 100 07/03/18 19:59 Temperature 98.3 F 07/03/18 19:59 Pulse Rate 89 07/03/18 23:36 Respiratory Rate 18 07/03/18 23:36 Blood Pressure 137/94 07/03/18 23:36 O2 Sat by Pulse Oximetry 100 07/03/18 23:36 Oxygen Delivery Oxygen Delivery Room Air Medical Decision Making - MDM Narrative Medical decision making narrative: 42-year-old male presenting with known hemoglobin of 7.0 sent from primary care. Laboratory work confirmed the patient is at his baseline and electrolytes but does have anemia with significant change from earlier this month. He did have hospitalization with extensive evaluation for GI bleed without a known source. Given that he is symptomatic at this point we will transfuse with 2 units packed red blood cells. Chest x-ray clear. Discussed the findings with hospitalist, Dr. Ryan who agrees with plan for admission. Patient agrees with and understands course of treatment plan including plan for admission. All questions answered. - Medical Records Medical records reviewed: Yes I reviewed the patient's medical records. - Lab Data Lab results reviewed: Yes I reviewed the patient's lab results. Result diagrams: 07/03/18 21:54 07/03/18 21:54 Lab Results 07/03/18 07/03/18 07/03/18 Range/Units 21:54 21:54 21:54 WBC 7.5 (4.3-11.1) K/mcL RBC 2.30 L (4.19-5.50) M/mcL Hgb 7.0 L (12.9-16.9) g/dL Hct 21.9 L (37.5-50.1) % MCV 95.2 (83.0-100.0) fL MCH 30.4 (28.0-33.3) pg MCHC 32.0 (31.6-35.5) g/dL RDW 15.6 H (11.5-14.5) % Plt Count 267 (140-400) K/mcL MPV 8.2 L (9.4-12.4) fL Immature Gran % 0.3 (0-4) % Seg Neutrophils % 56.0 % Lymphocytes % 22.4 % Monocytes % 9.5 % Eosinophils % 10.9 % Basophils % 0.9 % Neutrophils # 4.2 (1.6-8.9) K/mcL Lymphocytes # 1.7 (0.6-4.6) K/mcL Monocytes # 0.7 (0.0-1.3) K/mcL Eosinophils # 0.8 H (0.0-0.6) K/mcL Basophils # 0.1 (0.0-0.2) K/mcL PT 12.8 H (9.4-12.1) Seconds INR 1.1 APTT 34.7 (26.0-36.0) Seconds Sodium 137 (136-145) mEq/L Potassium 4.2 (3.5-5.1) mEq/L Chloride 97 L (98-107) mEq/L Carbon Dioxide 33 H (23-29) mEq/L BUN 60 H (6-20) mg/dL Creatinine 5.67 H (0.70-1.30) mg/dL Est GFR ( Amer) 13 L (> 60) Est GFR (Non-Af Amer) 11 L (> 60) BUN/Creatinine Ratio 11 (6-26) Glucose 137 H (70-105) mg/dL Calculated Osmolality 303 H (280-300) Calcium 9.6 (8.6-10.3) mg/dL Blood Type Antibody Screen Crossmatch 07/03/18 Range/Units 21:54 WBC (4.3-11.1) K/mcL RBC (4.19-5.50) M/mcL Hgb (12.9-16.9) g/dL Hct (37.5-50.1) % MCV (83.0-100.0) fL MCH (28.0-33.3) pg MCHC (31.6-35.5) g/dL RDW (11.5-14.5) % Plt Count (140-400) K/mcL MPV (9.4-12.4) fL Immature Gran % (0-4) % Seg Neutrophils % % Lymphocytes % % Monocytes % % Eosinophils % % Basophils % % Neutrophils # (1.6-8.9) K/mcL Lymphocytes # (0.6-4.6) K/mcL Monocytes # (0.0-1.3) K/mcL Eosinophils # (0.0-0.6) K/mcL Basophils # (0.0-0.2) K/mcL PT (9.4-12.1) Seconds INR APTT (26.0-36.0) Seconds Sodium (136-145) mEq/L Potassium (3.5-5.1) mEq/L Chloride (98-107) mEq/L Carbon Dioxide (23-29) mEq/L BUN (6-20) mg/dL Creatinine (0.70-1.30) mg/dL Est GFR ( Amer) (> 60) Est GFR (Non-Af Amer) (> 60) BUN/Creatinine Ratio (6-26) Glucose (70-105) mg/dL Calculated Osmolality (280-300) Calcium (8.6-10.3) mg/dL Blood Type A POSITIVE Antibody Screen NEGATIVE Crossmatch See Detail - Radiology Data Radiology results reviewed: Yes I reviewed the patient's radiology results. Chest X-Ray 07/03/18 21:39 IMPRESSION: Mild residual airspace disease within the periphery the right lung, probably postinflammatory scarring or atelectasis, versus minimal residual pneumonia. Otherwise, no acute abnormality detected. D/ / Lamin Avendaño MD / Lamin Avendaño MD Interpreting Provider: Lamin Avendaño MD Attestation Statement - Attestation Attestation: I, Shaan Garrett, examined this patient and my medical decision-making was reviewed with the WAREHOUSE LOGISTICS COORDINATOR/PA/Advanced Practice Nurse/Resident Physician. I agree with the documented findings, disposition and treatment plan as described except to the extent set forth below. 42-year-old male presents emergency Department with concerns of anemia. Patient has a history of anemia which is being followed by his renal physician and hematology and primary care doctor. His hemoglobin was 7 today. He had recent transfusions within the past few months. Patient is symptomatic with his hemoglobin as he is increasingly fatigued and dyspneic with exertion and sleeping throughout the day. Denies chest pain, no syncope. Patient agreed for admission to the hospital for transfusion and evaluation of his anemia. Critical-care time = 0
[2018-07-03 22:08] LABS: Basophils # 0.1 K/mcL (0.0-0.2); Basophils % 0.9 %; Eosinophils # 0.8 K/mcL (0.0-0.6); Eosinophils % 10.9 %; Hematocrit 21.9 % (37.5-50.1); Immature Granulocytes % 0.3 % (0-4); Lymphocytes # 1.7 K/mcL (0.6-4.6); Lymphocytes % 22.4 %; Mean Corpuscular Hemoglobin 30.4 pg (28.0-33.3); Mean Corpuscular Volume 95.2 fL (83.0-100.0); Mean Platelet Volume 8.2 fL (9.4-12.4); Monocytes # 0.7 K/mcL (0.0-1.3); Monocytes % 9.5 %; Neutrophils # 4.2 K/mcL (1.6-8.9); Platelet Count 267 K/mcL (140-400); Red Cell Distribution Width 15.6 % (11.5-14.5)
[2018-07-03 22:14] LABS: INR 1.1; Prothrombin Time 12.8 Seconds (9.4-12.1)
[2018-07-03 22:17] LABS: Activated Partial Thrombo Time 34.7 Seconds (26.0-36.0)
[2018-07-03 22:25] LABS: Calcium 9.6 mg/dL (8.6-10.3); Potassium 4.2 mEq/L (3.5-5.1)
[2018-07-04] MEDS ORDERED: 0.9 % Sodium Chloride 500 ML ONE (00:47)
[2018-07-04] MEDS ORDERED: 0.9 % Sodium Chloride 250 ML ONE (03:22)
[2018-07-04] MEDS ORDERED: Naloxone 0.4 MG/ML INJ IVP PRN (04:39)
[2018-07-04] MEDS ORDERED: 0.9 % Sodium Chloride 1,000 ML IVC SCH (04:45)
--- NOTE | 2018-07-04 05:13 | Internal Med History&Physical ---
Date of Encounter: 07/04/18 Time of Encounter: 05:08 Internal Medicine - H&P: HPI Chief complaint: Anemia History of present illness: Mr. Herrera is a 42 year old male with past medical history of end-stage renal disease on hemodialysis, hypertension who was recently evaluated at discharged for GI bleed. States that he has been feeling fine ever since. He went for his follow-up appointment with his primary care physician who reviewed his follow-up lab work with him which showed a hemoglobin of 7.0 which was down from 9.4 on the 23 of June. Patient denies any abdominal pain, bright red blood per rectum or dark tarry stools. He has since been undergoing hemodialysis during his regular sessions and has been receiving his scheduled Epo injections. During his last admission patient underwent both upper and lower endoscopy which was significant for diverticulosis. In the ED patient was started on 2 units of blood. Past Med Surg Social Fam HX - Past Medical History Medical history: dialysis, hyperlipidemia, hypertension, renal disease Psychiatric history: no psych history - Past Surgical History Surgical History: transplant Additional surgical history: kidney transplant-1994. dialysis port Lar - Social History Smoking Status: Former smoker Smokeless Tobacco Status: No Alcohol use: none Drug use: none Internal Medicine - H&P: Meds CloNIDine Patch [Catapres-Tts] 0.3 patch TD MORRISON 05/28/18 [History] Ergocalciferol (VITAMIN D2) [Vitamin D2] 50,000 unit PO FR 05/28/18 [History] Folic Acid 1 mg PO DAILY 05/28/18 [History] Furosemide [Lasix] 20 mg PO DAILY 05/28/18 [History] Lovastatin [Mevacor] 20 mg PO HS 05/28/18 [History] Phenytoin ER [Dilantin ER] 200 mg PO HS 05/28/18 [History] Amlodipine Besylate 10 mg PO DAILY 06/21/18 [History] Hydralazine HCl 100 mg PO BID 06/21/18 [History] Lisinopril [Zestril] 40 mg PO BID 06/21/18 [History] Phenytoin ER [Dilantin ER] 100 mg PO QPM 06/21/18 [History] Phenytoin ER [Dilantin ER] 200 mg PO QAM 06/21/18 [History] Allergy/AdvReac Type Severity Reaction Status Date / Time No Known Allergies Allergy Verified 06/21/18 19:59 All Systems PM: A 10-system review of systems was performed and is negative for pertinent findings except as documented above in the HPI. - Constitutional Constitutional: no chills, no fever(s), no night sweats - EENT Eyes: no change in vision, no discharge, no pain, no photophobia Ears: no ear discharge, no ear pain, no tinnitus Nose, mouth and throat: no dysphagia, no nasal discharge, no neck pain, no sore throat - Cardiovascular Cardiovascular ROS IM: no chest pain, no diaphoresis, no dyspnea, no lightheadedness, no palpitations, no syncope - Respiratory Respiratory: no cough, no dyspnea, no wheezing, no excessive phlegm production - Gastrointestinal Gastrointestinal: no abdominal pain, no diarrhea, no hematemesis, no hematochezia, no melena, no nausea, no vomiting - Musculoskeletal Musculoskeletal ROS IM: no numbness, no tingling - Integumentary Integumentary IM: no rash, no unusual bruising - Neurological Neurological ROS: no confusion, no convulsions, no focal weakness, no numbness, no tingling, no tremor(s) - Hematologic/Lymphatic Hematologic/Lymphatic: no easy bruising - Constitutional Vitals: Temp Pulse Resp BP Pulse Ox 99.2 F 78 18 147/81 99 07/04/18 03:59 07/04/18 03:59 07/04/18 03:59 07/04/18 03:59 07/04/18 03:59 Exam: General: Alert and oriented 3 lying in bed in no acute distress Skin:Normal color, no rash, no lesions. HEENT:EOM, pupils equal, round and reactive. Cardiovascular:Normal S1 & S2, no rubs, murmurs or gallops. No JVD. Pulse regular. Lungs:Normal breath sounds, no wheezes or crackles. Abdomen:Soft, non-tender, no rigidity. Extremities:No deformity, no edema or tenderness, no joint swelling or clubbing. Neurological:Normal cognition and motor skills. Pulses:Carotid and radial pulses normal +2. Rest of the physical exam is non contributory Internal Med - H&P Results - Labs CBC & Chem 7: 07/03/18 21:54 07/03/18 21:54 Labs: Short CBC 12/18/18 Range/Units 21:54 WBC 7.5 (4.3-11.1) K/mcL Hgb 7.0 L (12.9-16.9) g/dL Hct 21.9 L (37.5-50.1) % Plt Count 267 (140-400) K/mcL Neutrophils # 4.2 (1.6-8.9) K/mcL BMP 07/03/18 21:54 Sodium 137 Potassium 4.2 Chloride 97 L Carbon Dioxide 33 H BUN 60 H Creatinine 5.67 H Glucose 137 H Calcium 9.6 - Impressions ITS Impressions Chest X-Ray 07/03/18 21:39 IMPRESSION: Mild residual airspace disease within the periphery the right lung, probably postinflammatory scarring or atelectasis, versus minimal residual pneumonia. Otherwise, no acute abnormality detected. D/ / Lamin Avendaño MD / Lamin Avendaño MD Interpreting Provider: Lamin Avendaño MD - Assessment and plan (1) Anemia Current Visit: Yes Status: Acute Assessment and plan: Patient presents with normocytic anemia with a hemoglobin of 7.0 which dropped from 9.7 on June 22. Patient denies any history to suggest GI loss. Patient recent workup for GI bleed. Found to have significant diverticulosis on the right colon. Patient currently receiving first of 2 units of packed red blood cells. No further evidence of bleeding at this time. Patient asymptomatic. -Repeat H&H -We will start patient on Protonix prophylactically -GI consult for consideration of pill endoscopy. Qualifiers: Anemia type: unspecified type Qualified Code(s): D64.9 - Anemia, unspecified (2) ESRD (end stage renal disease) on dialysis Current Visit: Yes Status: Acute Assessment and plan: Patient has history of end-stage renal disease on dialysis Monday, Monday, Monday. -Nephrology consult for help with management of dialysis. (3) HTN (hypertension) Current Visit: No Status: Acute Assessment and plan: Blood pressure stable. -Resume clonidine patch for now. -Monitor BP Qualifiers: Hypertension type: essential hypertension Qualified Code(s): I10 - Essential (primary) hypertension (4) DVT prophylaxis Current Visit: No Status: Acute Assessment and plan: Pneumatic compression devices - Time Spent With Patient Total time spent is greater than 50% in coordination of care (as documented) at patient's floor/unit and/or counseling patient:
[2018-07-04] MEDS ORDERED: Pantoprazole 40 MG VIAL IVP SCH (06:30)
[2018-07-04 09:15] LABS: Basophils # 0.1 K/mcL (0.0-0.2); Basophils % 0.7 %; Eosinophils # 0.9 K/mcL (0.0-0.6); Eosinophils % 9.1 %; Hematocrit 32.4 % (37.5-50.1); Immature Granulocytes % 0.3 % (0-4); Lymphocytes # 1.9 K/mcL (0.6-4.6); Mean Corpuscular HGB Conc 32.7 g/dL (31.6-35.5); Mean Corpuscular Hemoglobin 29.8 pg (28.0-33.3); Monocytes # 0.8 K/mcL (0.0-1.3); Monocytes % 8.9 %; Neutrophils # 5.7 K/mcL (1.6-8.9); Platelet Count 279 K/mcL (140-400); Red Blood Count 3.56 M/mcL (4.19-5.50); Red Cell Distribution Width 16.2 % (11.5-14.5)
[2018-07-04 09:18] LABS: Hemoglobin 10.6 g/dL (12.9-16.9)
--- NOTE | 2018-07-04 10:01 | Nephrology Consult Note ---
Date of Encounter: 07/04/18 Time of Encounter: 10:01 Assessment and Plan (1) ESRD (end stage renal disease) on dialysis Current Visit: Yes Status: Acute HD as patient would like to leave prior to getting inpatient dialysis. Renal vitamins. Renal dose medications. Renal diet. Additional dialysis and ultrafiltration as needed. No emergent need for dialysis. Patient should be okay waiting until tomorrow to get his dialysis. (2) Hypophosphatemia Current Visit: Yes Status: Acute Patient hypophosphatemia. He takes 2 calcium carbonate pills with meals for phosphate binding. I advised him to decreased from 2 tablets to 1 tablet of calcium carbonate with meals. This will need to be monitored on an outpatient basis (3) Anemia Current Visit: Yes Status: Acute Status post upper endoscopy. 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 Qualifiers: Anemia type: unspecified type Qualified Code(s): D64.9 - Anemia, unspecified History of Present Illness - Reason for Consult Consult date: 07/04/18 end stage renal disease - Chief Complaint ESRD - History of Present Illness Mr. Herrera is a 42-year-old gentleman with a history of end-stage renal disease who receives hemodialysis. He was sent in for progressive anemia. He has no complaints. His review of systems otherwise stable. Past Med Surg Social Fam HX - Past Medical History Medical history: dialysis, hyperlipidemia, hypertension, renal disease Psychiatric history: no psych history - Past Surgical History Surgical History: transplant Additional surgical history: kidney transplant-1994. dialysis port [facility] - Social History Smoking Status: Former smoker Smokeless Tobacco Status: No Alcohol use: none Drug use: none Medications and Allergies CloNIDine Patch [Catapres-Tts] 0.3 patch TD MORRISON 05/28/18 [History] Ergocalciferol (VITAMIN D2) [Vitamin D2] 50,000 unit PO FR 05/28/18 [History] Folic Acid 1 mg PO DAILY 05/28/18 [History] Furosemide [Lasix] 20 mg PO DAILY 05/28/18 [History] Lovastatin [Mevacor] 20 mg PO HS 05/28/18 [History] Phenytoin ER [Dilantin ER] 200 mg PO HS 05/28/18 [History] Amlodipine Besylate 10 mg PO DAILY 06/21/18 [History] Hydralazine HCl 100 mg PO BID 06/21/18 [History] Lisinopril [Zestril] 40 mg PO BID 06/21/18 [History] Phenytoin ER [Dilantin ER] 100 mg PO QPM 06/21/18 [History] Phenytoin ER [Dilantin ER] 200 mg PO QAM 06/21/18 [History] Lidocaine/Prilocaine CREAM [Emla] 1 appl TP DAILY PRN 07/04/18 [History] Minoxidil 2.5 mg PO BID 07/04/18 [History] Allergy/AdvReac Type Severity Reaction Status Date / Time No Known Allergies Allergy Verified 06/21/18 19:59 Review of Systems All Systems: reviewed and no additional remarkable complaints except as stated (As per history of present illness) Exam - Vital Signs Vital signs: Initial Vital Signs Temp Pulse Resp BP Pulse Ox 98.3 F 105 16 160/88 100 07/03/18 19:59 07/03/18 19:59 07/03/18 19:59 07/03/18 19:59 07/03/18 19:59 Vital Signs - Last 8 Hours Temp Pulse Resp BP Pulse Ox 07/04/18 07:18 98.8 F 87 19 165/87 97 07/04/18 03:59 100.2 F H 87 16 166/86 98 07/04/18 03:44 98.0 F 80 16 150/83 07/04/18 03:15 98.7 F 77 16 169/96 98 07/04/18 03:11 98.7 F 77 18 169/96 98 07/04/18 02:46 18 149/92 Intake and Output 07/03/18 07/04/18 07/04/18 23:59 07:59 15:59 Intake Total 700 / 700 Balance 700 / 700 Intake: Blood Product 700 / 700 Rbcs Leuko Poor As-1 Unit 350 / 350 [id number] Rbcs Leuko Poor As-1 Unit 350 / 350 [id number] Other: Weight 45.087 kg - General Appearance General appearance: well-nourished EENT: ATNC Neck: supple Cardiology: regular rate Integumentary: warm and dry Neurologic: alert and oriented x3 Musculoskeletal: no cyanosis Psychiatric: mood/affect appropriate Results - Lab Results 07/04/18 08:32 07/04/18 08:32 Most recent lab results Calcium 9.6 mg/dL (8.6-10.3) 07/03/18 21:54 Consult Discharge Plan - Plan Instructions: Anemia (DC) Referrals: Lupe Mcdonnell CNP [Primary Care Provider] -
[2018-07-04 10:30] LABS: Albumin 3.4 g/dL (3.5-5.7); Bilirubin,Total 0.5 mg/dL (0.3-1.0); Calcium 9.5 mg/dL (8.6-10.3); Potassium 4.5 mEq/L (3.5-5.1)
[2018-07-04 10:35] LABS: Albumin/Globulin Ratio 0.9 (1.1-2.2); Phosphorous 1.9 mg/dL (2.7-4.5); Total Protein 7.4 g/dL (6.4-8.9)
[2018-07-04] MEDS ORDERED: amLODIPine 5 MG TABLET PO SCH (10:39)
--- NOTE | 2018-07-04 11:34 | Gastroenterology Consult Note ---
Date of Encounter: 07/04/18 Time of Encounter: 09:45 - Assessment and plan (1) Anemia Current Visit: Yes Status: Acute Assessment and plan: EGD and colonoscopy 06/22/[address] Vance showed mild chronic gastritis, diverticulosis, and internal hemorrhoids. On discharge 06/23 Hgb 9.4. On 06/27 Hgb 7. On 06/29 Hgb 7. On admission 07/03 Hgb 7. He received 2 units PRBC this AM and Hgb now 10.6. Continue to monitor CBC and transfuse PRBC as needed. Recommend push enteroscopy today. Keep patient NPO for now. If push enteroscopy negative, plan for capsule endoscopy as outpatient. Qualifiers: Anemia type: unspecified type Qualified Code(s): D64.9 - Anemia, unspecified (2) ESRD (end stage renal disease) on dialysis Current Visit: Yes Status: Acute Assessment and plan: Management per Nephrology. - Time Spent With Patient Total time spent is greater than 50% in coordination of care (as documented) at patient's floor/unit and/or counseling patient: GI History of Present Illness - Data of Consult Patient: known to practice within the last 3 years Consult date: 07/04/18 Requesting Physician: Matt Bowman - Consult Narrative Reason for consult: GI bleed History of present illness: Mr. Herrera is a 42 year old male with PMHx of HTN and ESRD s/p kidney transplant one in 1984 and one in and has dialysis Monday, Monday, Monday who was recently evaluated for GI bleed and discharged on 06/23/2018 presented to the ED for evaluation of anemia. On discharge 06/23, Hgb 9.4, on 06/27 Hgb 7, 06/29 Hgb 7, and on admission 07/03 Hgb 7. He received 2 units PRBC this AM and Hgb now 10.6. Patient denies fever, chills, shortness or breath, chest pain, abdominal pain, nausea, vomiting, melena, or hematochezia. Procedures: EGD 06/22/2018 Dr. Vance: Mild chronic gastritis. Colonoscopy 06/23/2018 Dr. Vance: Diverticulosis and internal hemorrhoids. NSAIDs: None Anticoagulation: None Past Med Surg Social Fam HX - Past Medical History Medical history: dialysis, hyperlipidemia, hypertension, renal disease Psychiatric history: no psych history - Past Surgical History Surgical History: transplant Additional surgical history: kidney transplant-1994. dialysis port [place] - Social History Smoking Status: Former smoker Smokeless Tobacco Status: No Alcohol use: none Drug use: none - Gastrointestinal Gastrointestinal: Present: as per HPI - Constitutional Constitutional: as per HPI - EENT Eyes: as per HPI Ears: Present: as per HPI Nose, mouth and throat: Present: as per HPI - Cardiovascular Cardiovascular ROS: Present: as per HPI - Respiratory Respiratory IM: Present: as per HPI - Genitourinary Genitourinary: Absent: change in color, Urinary frequency - Neurological ROS Neurological GI: Present: as per HPI - Hematologic/Lymphatic Hematologic/Lymphatic pediatric: Present: as per HPI - Musculoskeletal Musculoskeletal ROS GI: Present: as per HPI - Integumentary Integumentary GI: Present: as per HPI - Psychiatric ROS Psychiatric GI: Present: as per HPI - Endocrine Endocrine IM: Present: as per HPI - Constitutional Vitals: Temp Pulse Resp BP Pulse Ox 99.4 F 82 19 156/86 97 07/04/18 11:02 07/04/18 11:02 07/04/18 11:02 07/04/18 11:02 07/04/18 11:02 General appearance: Present: cooperative, A&O X 3, no acute distress, answers questions appropriately - Head Head exam: Present: atraumatic, normocephalic - Eye Eye exam: Present: normal appearance, sclera anicteric - ENT ENT exam: Present: mucous membranes moist - Neck Neck exam general surgery: Present: normal inspection, trachea midline - Respiratory Respiratory exam: Present: CTAB. Absent: rales, rhonchi - Cardiovascular Cardiovascular exam: Present: RRR, +S1, +S2 - GI/Abdominal GI/Abdominal exam: Present: soft, no peritoneal signs. Absent: distended, firm, guarding, tenderness - Rectal Rectal exam: Present: deferred - Extremities Exam Extremities exam: Present: warm - Neurological Exam Neurological exam: Present: no focal deficits - Psychiatric Psychiatric exam: Present: normal affect, normal mood - Skin Skin exam: Present: dry, intact, normal color, warm Results - Labs CBC & Chem 7: 07/04/18 08:32 07/04/18 08:32 Labs: Last Result Calcium 9.5 mg/dL (8.6-10.3) 07/04/18 08:32 Entire Visit Hgb 10.6 g/dL (12.9-16.9) L D 07/04/18 08:32 Hct 32.4 % (37.5-50.1) L 07/04/18 08:32 PT 12.8 Seconds (9.4-12.1) H 07/03/18 21:54 Total Bilirubin 0.5 mg/dL (0.3-1.0) 07/04/18 08:32 AST 13 Units/L (13-39) 07/04/18 08:32 ALT 7 Units/L (7-52) 07/04/18 08:32 - ABG ABG results: PT/INR, D-dimer PT 12.8 Seconds (9.4-12.1) H 07/03/18 21:54 - Impressions Impressions Chest X-Ray 07/03/18 21:39 IMPRESSION: Mild residual airspace disease within the periphery the right lung, probably postinflammatory scarring or atelectasis, versus minimal residual pneumonia. Otherwise, no acute abnormality detected. D/ / Lamin Avendaño MD / Lamin Avendaño MD Interpreting Provider: Lamin Avendaño MD Consult Discharge Plan - Plan Referrals: Lupe Mcdonnell, CARD MAKER [Primary Care Provider] -
--- NOTE | 2018-07-04 13:41 | Anesthesia Evaluation PreOp ---
Date of Encounter: 07/04/18 Time of Encounter: 13:40 - Past History Planned Operation: Push Enteroscopy Cardiac History: HTN, Hyperlipidemia Pulmonary History: Denies Any Significant HX CONSTRUCTION TEACHER History: Denies Any Significant HX Other Medical History: Renal (ESRD last dialyzed Monday) Anesthesia History: No Prior Anesthetic Complications Alcohol Use: none Drug use: none Medications and Allergies CloNIDine Patch [Catapres-Tts] 0.3 patch TD MORRISON 05/28/18 [History] Ergocalciferol (VITAMIN D2) [Vitamin D2] 50,000 unit PO FR 05/28/18 [History] Folic Acid 1 mg PO DAILY 05/28/18 [History] Furosemide [Lasix] 20 mg PO DAILY 05/28/18 [History] Lovastatin [Mevacor] 20 mg PO HS 05/28/18 [History] Phenytoin ER [Dilantin ER] 200 mg PO HS 05/28/18 [History] Amlodipine Besylate 10 mg PO DAILY 06/21/18 [History] Hydralazine HCl 100 mg PO BID 06/21/18 [History] Lisinopril [Zestril] 40 mg PO BID 06/21/18 [History] Phenytoin ER [Dilantin ER] 100 mg PO QPM 06/21/18 [History] Phenytoin ER [Dilantin ER] 200 mg PO QAM 06/21/18 [History] Lidocaine/Prilocaine CREAM [Emla] 1 appl TP DAILY PRN 07/04/18 [History] Minoxidil 2.5 mg PO BID 07/04/18 [History] Allergy/AdvReac Type Severity Reaction Status Date / Time No Known Allergies Allergy Verified 06/21/18 19:59 - Meds/Allergy Pre-op Review Medications Reviewed: Yes Allergies Reviewed: Yes Beta Blockers on Current Med List: No Anesthesia Results - Labs 07/04/18 08:32 07/04/18 08:32 Laboratory Tests 07/03/18 07/04/18 07/04/18 21:54 08:32 08:32 Hgb 10.6 L D Hct 32.4 L Plt Count 279 PT 12.8 H INR 1.1 APTT 34.7 Sodium 134 L Potassium 4.5 BUN 65 H Creatinine 6.20 H - Imaging EKG: report reviewed (Sinus Tach) Anesthesia Exam Vital Signs/O2 Sat/Glucose, Most Current Temp Pulse Resp BP Pulse Ox 12/19/18 13:37 99.4 F 84 16 156/99 97 07/04/18 11:02 99.4 F 82 19 156/86 97 Height: 4'7 Weight: 99 lbs NPO (# of Hours): MN Pain Scale: 0 - HEENT Pupil (Motor): Pupils equal, EOMI Mallampati: III Teeth: Normal Oral Opening: Less than or equal to 3 - CONSTRUCTION TEACHER LOC: Oriented CONSTRUCTION TEACHER Motor: Normal RUE, Normal LUE, Normal RLE, Normal LLE, Normal Face CONSTRUCTION TEACHER Sensory: Normal: RUE, LUE, RLE, LLE, Face - Cardiac Rhythm: Regular Murmur: None JVD: No Carotid Bruit: No - Pulmonary Breath Sounds: bilateral Clear Respiratory Effort: Symmetrical Anesthesia Assess/Plan ASA Score: 3 (ESRD HTN) Level of consciousness: Cooperative, Oriented Anesthetic Plan: MAC Autologous Blood: No Monitoring Plan: Standard Monitors Recovery Plan: Other (Discussed MAC, agrees to proceed)
[2018-07-04] MEDS ORDERED: Lidocaine -MPF 2% 2 ML VIAL ONE (13:51)
[2018-07-04] MEDS ORDERED: *HR* Propofol 200 MG/20 ML VIAL IVP ONE ×2 (13:52→13:55)
[2018-07-04] MEDS ORDERED: 0.9 % Sodium Chloride 250 ML IVC PRN (14:36)
[2018-07-04] MEDS ORDERED: 0.9 % Sodium Chloride 1,000 ML PRIME SCH (14:45)
[2018-07-04 15:41] LABS: Hematocrit 30.2 % (37.5-50.1); Hemoglobin 10.2 g/dL (12.9-16.9)
--- NOTE | 2018-07-04 16:12 | Discharge Summary ---
- NOTES TO OUTPATIENT PROVIDER Notes to Outpatient Provider: Follow-up with primary care provider for monitoring of H&H Orders not resulted at time of discharge: Pending orders 07/04/18 20:43 Hemoglobin and Hematocrit [HEME] Q6H 07/05/18 04:00 CBC [Complete Blood Count] [HEME] AM 0400 Renal Function Panel AM 0400 07/06/18 04:00 CBC [Complete Blood Count] [HEME] AM 0400 Renal Function Panel AM 0400 07/07/18 04:00 CBC [Complete Blood Count] [HEME] AM 0400 Renal Function Panel AM 0400 07/08/18 04:00 CBC [Complete Blood Count] [HEME] AM 0400 Renal Function Panel AM 04007/09/18 04:00 CBC [Complete Blood Count] [HEME] AM 0400 Renal Function Panel AM 040 Date of Encounter: 07/04/18 Time of Encounter: 11:00 - Discharge Diagnosis (1) ESRD (end stage renal disease) on dialysis Priority: Secondary Status: Acute (2) Anemia Priority: Primary Status: Acute Qualifiers: Anemia type: unspecified type Qualified Code(s): D64.9 - Anemia, unspecified (3) HTN (hypertension) Priority: Secondary Status: Acute Qualifiers: Hypertension type: essential hypertension Qualified Code(s): I10 - Essential (primary) hypertension Hospital course: Patient is a 42-year-old male with past medical history significant for end- stage renal disease on hemodialysis, hypertension who was recently evaluated at discharged for GI bleed who presents due to lab work showing hemoglobin of 7.0 at primary care provider office. During his last admission patient underwent both upper and lower endoscopy which was significant for diverticulosis. In the ER patient was started on 2 units of blood. She admitted to the medical surgical floor with GI consult for further management and evaluation. During patients hospital stay he received 2 units of packed red blood cells and his hemoglobin improved to 10.2. GI recommendations for push enteroscopy. No signs of active bleeding and patient will be discharged to follow-up as outpatient. - Time Spent with Patient Total time spent providing and/or coordinating discharge services: Less than 30 minutes - Discharge Medications Home Medications: CloNIDine Patch [Catapres-Tts] 0.3 patch TD MORRISON 05/28/18 [History] Ergocalciferol (VITAMIN D2) [Vitamin D2] 50,000 unit PO FR 05/28/18 [History] Folic Acid 1 mg PO DAILY 05/28/18 [History] Furosemide [Lasix] 20 mg PO DAILY 05/28/18 [History] Lovastatin [Mevacor] 20 mg PO HS 05/28/18 [History] Phenytoin ER [Dilantin ER] 200 mg PO HS 05/28/18 [History] Amlodipine Besylate 10 mg PO DAILY 06/21/18 [History] Hydralazine HCl 100 mg PO BID 06/21/18 [History] Lisinopril [Zestril] 40 mg PO BID 06/21/18 [History] Phenytoin ER [Dilantin ER] 100 mg PO QPM 06/21/18 [History] Phenytoin ER [Dilantin ER] 200 mg PO QAM 06/21/18 [History] Lidocaine/Prilocaine CREAM [Emla] 1 appl TP DAILY PRN 07/04/18 [History] Minoxidil 2.5 mg PO BID 07/04/18 [History] Allergies/Adverse Reactions: Allergy/AdvReac Type Severity Reaction Status Date / Time No Known Allergies Allergy Verified 06/21/18 19:59 Date of admission: 07/04/18 04:39 Primary care physician: Lupe Mcdonnell CNP Consults: 07/04/18 04:40 Consult to Gastroenterology [CONS] Routine Consulting Provider: Gastroenterology Moira Reason for Consult: Drop in hemoglobin concern for GI bleed Call Completed: No 07/04/18 05:10 Consult to Nephrology [CONS] Routine Consulting Provider: Kidney Moira/APOLINAR/CRIS/VAN Reason for Consult: Dialysis patient Call Completed: No 07/04/18 14:45 Consult to Dialysis [CONS] ONCE - Constitutional Vitals: Temp Pulse Resp BP Pulse Ox 99.4 F 84 16 156/99 97 07/04/18 13:37 07/04/18 13:37 07/04/18 13:37 07/04/18 13:37 07/04/18 13:37 Exam: Gen.: Nonacute distress, alert and oriented 3 Skin: Normal color - Patient Status Disposition: Home, Self-Care Condition: Good - Discharge Instructions Instructions: Anemia (DC) Follow Up With: Lupe Mcdonnell CNP [Primary Care Provider] - 07/09/18 9:45 am
[2018-07-04 19:39] VITALS: BP 146/88
[2018-07-04] MEDS ORDERED: hydrALAZINE 25 MG TABLET PO SCH (21:00)
[2018-07-05] MEDS ORDERED: Folic Acid 1 MG TABLET PO SCH (09:00)
[2018-07-08] MEDS ORDERED: CloNIDine Patch 0.3 MG PATCH (WEEKLY) TD SCH (09:00)
== END 2018-07-04 18:20 | disposition home or self-care (01) ==
LOC: EMEROOARM 19:55 → 2ANU 19:55 → SUATTDRO 07-04 04:39
PROVIDERS: ADMIT Internal Medicine; ATTEND Hospitalist